=== PATIENT | female | born 1940 | race Caucasian/White ===

== ENCOUNTER 2016-09-09 07:30 | Day surgery (SDC) | payer MEDICARE, BC ==
[2016-09-05 11:35] VITALS: BMI 29.2
[~2016-09-09 07:30] MED LIST: LACTATED RINGERS 1,000 ML IV SCH
[2016-09-09] MEDS: PHENYLEPHRINE 10% OPHTH DROPS 5 ML BTL OP ONE ×3 (07:48→08:07)
[2016-09-09] MEDS: CYCLOPENTOLATE 1% OPHTH SOLN 2 ML BTL OP ONE ×3 (07:51→08:10)
[2016-09-09] MEDS: FLURBIPROFEN 0.03% OPHTH DROPS 2.5 ML BTL OP ONE ×3 (07:55→08:12)
[2016-09-09 08:03] VITALS: RESP 16; TEMP 99.1
[2016-09-09] MEDS ORDERED: LIDOCAINE 1% 20 ML VIAL (10MG/ML) FOR IV START INTRADERMA ONE (08:05)
[2016-09-09] MEDS ORDERED: PROPOFOL 10 MG/ML 20 ML VIAL IV ONE (08:12)
[2016-09-09] MEDS ORDERED: BALANCED SALT IRRIG SOLN COMB2 15 ML IRRIG.SOLN INTRAOCULA ONE (08:25)
[2016-09-09] MEDS ORDERED: HYALURONATE SODIUM INTRAOCULAR 1 EACH SYRINGE (10MG/ML) INTRAOCULA ONE (08:25)
[2016-09-09] MEDS ORDERED: EPINEPHrine (PF) 0.5 ML in BALANCED SALT IRRIG SOLN COMB2 500 ML IRRIGATION ONE (08:26)
--- NOTE | 2016-09-09 08:36 | P.OP ---
Date of Procedure: 09/09/16 Procedure(s) Performed: PREOPERATIVE DIAGNOSIS: Cataract, left eye. POSTOPERATIVE DIAGNOSIS: Cataract, left eye. OPERATION: Phacoemulsification cataract, left eye. DESCRIPTION OF PROCEDURE: The patient was taken to the preoperative holding area. Intravenous Propofol was given so as to bring about adequate sedation. The following mixture was given for local anesthesia: 5 mL of 2% lidocaine, 5 mL of 0.75% Marcaine, and 1 mL of Wydase. Approximately 4 mL was injected in the retrobulbar space of the surgical eye. Additional 1 mL was then directed to the temporal area of the surgical eye. This was performed to allow adequate neurological block of the facial muscles. The patient was revived and then taken into the operative room. The patient was prepped and draped in the usual sterile manner for the operative eye. A lid speculum was put into position. The conjunctiva was resected back from the limbus in the 12 o'clock position. Bleeding was controlled with electrocautery. A #69 blade was then used and a half-thickness scleral incision approximately 1-mm posterior to the limbus was made on bare sclera. This was shelved in the clear cornea using a crescent knife. Next a 15-degree blade was used to make a stab incision at the 3 o' clock position at the corneolimbal interface. Keratome blade was then used and the superior wound was extended into the anterior chamber. Viscoelastic was injected into the anterior chamber and to maintain its form. Next, a cystotome was used and a continuous anterior capsulotomy was made without difficulty. Hydrodissection using a blunt cannula and BSS was performed. Phaco probe was then employed and a groove extending from 12 to 6 o'clock in the lens was created. A Jose wand was used through the stab incision so as to perform a divide and conquer technique. Next an irrigation aspiration probe was utilized and any residual cortex was removed from the eye. Again, viscoelastic was injected into the anterior chamber. An Corby posterior chamber lens implant was placed in the cartridge and injected into the anterior chamber without difficulty. The [employer] hook was utilized to spin the lens into position and this was again performed without any difficulty. The irrigation and aspiration probe was again employed and any residual viscoelastic was removed from the eye. Then BSS was injected into the limbal stab incision and the anterior chamber re-inflated. The conjunctiva was reapproximated using electrocautery. One drop of 0.25% Timoptic was placed over the corneal along with TobraDex ophthalmic ointment. Two sterile patches and a Hawkins eye shield were taped into position. The patient was transported to the recovery room in stable condition. Pathology: none sent Condition: stable Disposition: same day
[2016-09-09 08:54] VITALS: BP 170/89; PULSE 70
[2016-09-09] MEDS ORDERED: TIMOLOL 0.5% OPHTH SOLN (PF) 0.2 ML DROPERETTE OP ONE (23:00)
[2016-09-09] MEDS ORDERED: GENTAMICIN/PREDNISOL AC OPHTH OINT 3.5GM OPHTHALMIC ONE (23:00)
[2016-09-09] MEDS ORDERED: BUPIVACAINE (PF) 0.75% 5 ML, LIDOCAINE 4% (PF) 5 ML, HYALURONIDASE, HUMAN RECOMB 150 UNIT MISCELLANE ONE ×3 (23:00)
== END 2016-09-09 09:36 | disposition home or self-care (01) ==
LOC: OR 07:30
PROVIDERS: ATTEND Ophthalmology
DX: H25.12 Age-related nuclear cataract, left eye (principal); I10 Essential (primary) hypertension; E78.5 Hyperlipidemia, unspecified; E07.9 Disorder of thyroid, unspecified; F41.9 Anxiety disorder, unspecified; F32.9 Major depressive disorder, single episode, unspecified; C90.02 Multiple myeloma in relapse; M79.7 Fibromyalgia; M19.90 Unspecified osteoarthritis, unspecified site; K21.9 Gastro-esophageal reflux disease without esophagitis; Z79.899 Other long term (current) drug therapy; Z88.5 Allergy status to narcotic agent; Z88.0 Allergy status to penicillin; Z88.2 Allergy status to sulfonamides
CPT/HCPCS: 66984; V2632; J2001; J3470; J0171; J2704

== ENCOUNTER → 2016-12-08 | Outpatient (CLI) | payer MEDICARE, BC ==
--- NOTE | 2016-12-09 07:43 | USB ---
Reason for exam: clinical finding. History: Patient is postmenopausal and history of other cancer. Family history of breast cancer in maternal grandmother and breast cancer in paternal grandmother at age 83. Took estrogen for 35 years beginning at age 35. Physical Findings: Nurse did not find any significant physical abnormalities on exam. US Breast LT Left breast ultrasound includes all four quadrants, the retroareolar region and axilla. Finding demonstrates no cystic or solid lesion seen. These results were verbally communicated with the patient and result sheet given to the patient on 12/08/16. ASSESSMENT: Negative, BI-RAD 1 RECOMMENDATION: Return to routine screening mammogram schedule for both breasts. Back on schedule. Manage patient on a clinical basis.
== END | disposition home or self-care (01) ==
LOC: RADUSWWP 15:32
PROVIDERS: ATTEND Family Medicine
DX: N63 Unspecified lump in breast (principal)

== ENCOUNTER → 2017-02-14 | Outpatient (CLI) | payer MEDICARE, BC ==
--- NOTE | 2017-02-15 20:44 | PE ---
Nuclear medicine PET/CT HISTORY: Multiple myeloma Patient received 10.5 mCi F-18 FDG intravenously. Delayed scanning performed through the whole body. Localization and attenuation correction CT scan was performed. Correlation to bone survey 04/03/2015 Neck and chest: No evident adenopathy. No evident lung mass. Port-A-Cath is present with the distal t ip by the jugular approach within the right atrium. There are coronary artery calcifications present. Abdomen pelvis: No suspicious hypermetabolic uptake. Right kidney is ptotic. EXTREMITIES: No suspicious hypermetabolic uptake. Osseous structures: Demineralization is again noted. There are scattered lytic foci present within th e spine and sternum, possibly calvarium, posterior calvarial lesion shows mild hypermetabolic uptake, SUV 2.3. Compression fracture is seen at L1 with some retropulsion of approximately 5 mm. There is s ome mild spinal stenosis present. Lytic foci are present within the left femur distally, and associated soft tissue mass is present wit hin the distal metaphysis of the left femur measuring approximately 2 cm. Central abnormal soft tissu e present within the contralateral femur at the same level measuring 11 mm. Lytic foci within the cara physis of the left tibia and axial image 88 measures 9 mm, there is associated endosteal scalloping o n axial image 88. SUV values approximately 2.4-3.4. Anterior cortex of the distal right tibia anterio rly shows some hypermetabolic uptake, SUV 2.2 IMPRESSION: Findings compatible with patient's history multiple myeloma. Additional findings above.
== END ==
LOC: RADPETMAIN 12:17
PROVIDERS: ATTEND Internal Medicine Hematology & Oncology
DX: C90.02 Multiple myeloma in relapse (principal)
CPT/HCPCS: 78815; A9552

== ENCOUNTER → 2017-04-22 | Outpatient (CLI) | payer MEDICARE, BC ==
--- NOTE | 2017-04-24 07:29 | MM ---
Reason for exam: screening (asymptomatic). Last mammogram was performed 1 year and 2 months ago. History: Patient is postmenopausal and history of other cancer. Family history of breast cancer in maternal grandmother and breast cancer in paternal grandmother at age 83. Took estrogen for 35 years beginning at age 35. Physical Findings: A clinical breast exam by your physician is recommended on an annual basis and results should be correlated with mammographic findings. MG 3D Screening Mammo W/Cad Bilateral CC and MLO view(s) were taken. Prior study comparison: March 03, 2016, bilateral MG 3d screening mammo w/cad. March 01, 2015, bilateral MG screening mammo w CAD. There are scattered fibroglandular densities. Chest port on the right breast. No significant changes when compared with prior studies. ASSESSMENT: Negative, BI-RAD 1 RECOMMENDATION: Routine screening mammogram of both breasts in 1 year.
== END | disposition home or self-care (01) ==
LOC: RADMAMWWP 12:35
PROVIDERS: ATTEND Family Medicine
DX: Z12.31 Encounter for screening mammogram for malignant neoplasm of breast (principal)
CPT/HCPCS: 77063; G0202

== ENCOUNTER → 2017-06-03 | Outpatient (CLI) | payer MEDICARE, BC ==
[2017-06-03 10:57] LABS: ALT 30 U/L (9-52); AST 26 U/L (14-36); Albumin 3.6 g/dL (3.5-5.0); Alkaline Phosphatase 67 U/L (38-126); Anion Gap 11 mmol/L; Blood Urea Nitrogen 15 mg/dL (7-17); Calcium 10.8 mg/dL (8.4-10.2); Carbon Dioxide 25 mmol/L (22-30); Chloride 106 mmol/L (98-107); Cholesterol 108 mg/dL (<200); Glucose 89 mg/dL (74-99); HDL Cholesterol 31 mg/dL (40-60); LDL Cholesterol,Calculated 49 mg/dL (0-99); Potassium 4.3 mmol/L (3.5-5.1); Sodium 142 mmol/L (137-145); Total Bilirubin 0.3 mg/dL (0.2-1.3); Total Protein 6.7 g/dL (6.3-8.2); Triglycerides 140 mg/dL (<150)
[2017-06-03 11:11] LABS: Anisocytosis Slight; HCT 29.3 % (34.0-46.0); HGB 9.1 gm/dL (11.4-16.0); Hypochromasia Slight; MCHC 30.9 g/dL (31.0-37.0); MCV 103.5 fL (80.0-100.0); Macrocytosis Moderate; Mean Platelet Volume 10.3; RBC 2.83 m/uL (3.80-5.40); RDW 18.9 % (11.5-15.5)
[2017-06-03 11:16] LABS: WBC 1.6 k/uL (3.8-10.6)
[2017-06-03 12:48] LABS: Platelet Count 57 k/uL (150-450)
== END | disposition home or self-care (01) ==
LOC: LABWHC1 10:04
PROVIDERS: ATTEND Internal Medicine Interventional Cardiology
DX: E78.2 Mixed hyperlipidemia (principal); I21.4 Non-ST elevation (NSTEMI) myocardial infarction
CPT/HCPCS: 36415; 80053; 80061; 85027

== ENCOUNTER 2017-06-26 09:16 | Emergency (ER) | payer MEDICARE, BC ==
[2017-06-26] MEDS ORDERED: ACETAMINOPHEN TAB 500 MG TAB PO STA (09:39)
[2017-06-26] MEDS ORDERED: IBUPROFEN 600 MG TAB PO STA (09:39)
[2017-06-26] MEDS ORDERED: SODIUM CHLORIDE 0.9% 500 ML IV SCH (09:45)
[2017-06-26 10:08] LABS: Anisocytosis Slight; Basophils % (A) 0 %; Eosinophils % (A) 0 %; HCT 21.9 % (34.0-46.0); Lymphocytes # (A) 0.4 k/uL (1.0-4.8); Lymphocytes % (A) 34 %; MCH 32.4 pg (25.0-35.0); MCV 101.2 fL (80.0-100.0); Macrocytosis Moderate; Mean Platelet Volume 7.8; Monocytes % (A) 2 %; Neutrophils # (A) 0.7 k/uL (1.3-7.7); Neutrophils % (A) 62 %; Partial Thromboplastin Time 25.2 sec (22.0-30.0); Prothrombin Time 10.2 sec (9.0-12.0); RBC 2.16 m/uL (3.80-5.40); RDW 19.9 % (11.5-15.5)
[2017-06-26 10:09] LABS: ALT 24 U/L (9-52); AST 28 U/L (14-36); Albumin 3.9 g/dL (3.5-5.0); Alkaline Phosphatase 71 U/L (38-126); Anion Gap 10 mmol/L; Blood Urea Nitrogen 15 mg/dL (7-17); Carbon Dioxide 21 mmol/L (22-30); Chloride 107 mmol/L (98-107); Glucose 101 mg/dL (74-99); Potassium 4.4 mmol/L (3.5-5.1); Sodium 138 mmol/L (137-145); Total Bilirubin 0.2 mg/dL (0.2-1.3); Total Protein 7.3 g/dL (6.3-8.2)
[2017-06-26 10:11] LABS: Platelet Count 102 k/uL (150-450)
[2017-06-26 10:13] LABS: WBC 1.2 k/uL (3.8-10.6)
[2017-06-26] MEDS ORDERED: ONDANSETRON 4 MG/2 ML VIAL IVP STA (10:17)
--- NOTE | 2017-06-26 10:44 | XR ---
EXAMINATION TYPE: XR chest 2V DATE OF EXAM: 06/26/2017 COMPARISON: 11/14/2015 INDICATION: Fever heart attack cough TECHNIQUE: Frontal and lateral views of the chest are obtained. FINDINGS: The heart size is normal. The pulmonary vasculature is normal. The lungs are clear. Port is present on the right with the tip in the proximal right atrium. EKG warren ds overlie the chest. IMPRESSION: 1. No acute pulmonary process.
--- NOTE | 2017-06-26 10:58 | ED ---
General Adult HPI - General Chief complaint: Fever Stated complaint: Fever, Chills, [place] Time Seen by Provider: 06/26/17 09:20 Source: patient, family, RN notes reviewed Mode of arrival: ambulatory Limitations: no limitations - History of Present Illness Initial comments: This is a 76-year-old female with past medical history significant for multiple myeloma. Patient states she was here today to get a blood transfusion because her hemoglobin has been low. Patient states when she got there they took her temperature was elevated. They sent to the emergency department to be worked up for the elevated doctor. Patient complains of coughing but no difficulty breathing or shortness of breath. Patient denies any sputum production. Patient denies any chest pain or palpitations. Patient denies any nausea vomiting diarrhea. Patient denies abdominal pain. Patient denies any dysuria hematuria urinary frequency. Patient denies headache patient denies lightheadedness patient denies any numbness or weakness. Patient denies any rashes or areas of erythema - Related Data Home Medications Medication Instructions Recorded Confirmed ALPRAZolam [Xanax] 1 mg PO TID@0800,1400,1900 01/04/14 06/26/17 Acetaminophen Tab [Tylenol] 1,000 mg PO TID@0800,1400,199901/04/14 06/26/17 Lansoprazole [Prevacid] 30 mg PO DAILY@0801/04/14 06/26/17 Levothyroxine Sodium [Levoxyl] 25 mcg PO DAILY@0800 01/04/14 06/26/17 Simvastatin [Zocor] 40 mg PO DAILY@189901/04/14 06/26/17 Multivit-Min/FA/Lycopen/Lutein 1 tab PO DAILY 04/05/15 06/26/17 [Centrum Silver Tablet] Decaf Green Tea 750 mg PO BID 11/14/15 06/26/17 Lactobacillus Acidophilus 2 tab PO BID 11/14/15 06/26/17 [Acidophilus] Lidocaine-Prilocaine Cream [Emla 1 applic TOPICAL DAILY PRN 11/14/15 06/26/17 Cream 2.5%/2.5%] Reagan-E 400 mg PO QAM 11/14/15 06/26/17 Acyclovir [Zovirax] 200 mg PO BID@0800,1900 09/05/16 06/26/17 Aspirin 81 mg PO DAILY@1900 09/05/16 06/26/17 Mirtazapine [Remeron] 7.5 mg PO HS@2200 09/05/16 06/26/17 Acetaminophen Tab [Tylenol Tab] 1,000 mg PO DAILY@0000 PRN 06/26/17 06/26/17 Ascorbic Acid [Vitamin C] 500 mg PO DAILY 06/26/17 06/26/17 Clobetasol Propionate [Temovate 1 applic TOPICAL BID 06/26/17 06/26/17 0.05% Cream] Cranberry 22,000mg 22,000 mg PO BID 06/26/17 06/26/17 Hydrocortisone [Anusol-Hc] 1 applic RECTAL DAILY 06/26/17 06/26/17 Isosorbide Mononitrate [Isosorbide 15 mg PO DAILY@0800 06/26/17 06/26/17 Mononitrate ER] Liquid Silver Biotics 10 ml PO QAM 06/26/17 06/26/17 Lisinopril [Zestril] 5 mg PO DAILY@0800 06/26/17 06/26/17 Metoprolol Tartrate [Lopressor] 50 mg PO BID@0800,1900 06/26/17 06/26/17 Nystatin/Triamcin Cream [Mycolog 1 applic TOPICAL DAILY 06/26/17 06/26/17 100,000-0.1 Unit/gm-% Cream] Previous Rx's Medication Instructions Recorded Levofloxacin [Levaquin] 750 mg PO DAILY #10 tab 06/26/17 Allergies Allergy/AdvReac Type Severity Reaction Status Date / Time codeine Allergy Rapid Verified 06/26/17 09:55 Heart Rate Penicillins Allergy Rash/Hives Verified 06/26/17 09:55 Sulfa (Sulfonamide Allergy Dyspnea Verified 06/26/17 09:55 Antibiotics) Review of Systems ROS Statement: Those systems with pertinent positive or pertinent negative responses have been documented in the HPI. ROS Other: All systems not noted in ROS Statement are negative. Past Medical History Past Medical History: Cancer, Fibromyalgia, GERD/Reflux, Myocardial Infarction ( CT), Osteoarthritis (OA), Pneumonia, Thyroid Disorder Additional Past Medical History / Comment(s): MULTIPLE MYLEMOMA STAGE 3, COMPRESSION FRACTURES. CT - April Last Myocardial Infarction Date:: 05-24-2018 History of Any Multi-Drug Resistant Organisms: None Reported Past Surgical History: Bowel Resection, Heart Catheterization, Hysterectomy Additional Past Surgical History / Comment(s): cystocele,rectocele, rt upper chest power port Past Anesthesia/Blood Transfusion Reactions: Postoperative Nausea & Vomiting ( PONV) Additional Past Anesthesia/Blood Transfusion Reaction / Comment(s): pt states PONV only with general anesthesia. Pt. states she had CT on 05-24-18 while getting blood transfusion; pt. states she also had just started a new chemo medication which has since been discontinued Past Psychological History: Anxiety, Depression Smoking Status: Never smoker Past Alcohol Use History: None Reported Past Drug Use History: None Reported - Past Family History Father Family Medical History: Cancer Additional Family Medical History / Comment(s): KIDNEY CANCER Mother Family Medical History: Myocardial Infarction (CT) General Exam - General Exam Comments Initial Comments: GENERAL: Patient is well-developed and well-nourished. Patient is nontoxic and well- hydrated and is in mild distress. ENT: Neck is soft and supple. No significant lymphadenopathy is noted. Oropharynx is clear. Moist mucous membranes. Neck has full range of motion without eliciting any pain. EYES: The sclera were anicteric and conjunctiva were pink and moist. Extraocular movements were intact and pupils were equal round and reactive to light. Eyelids were unremarkable. PULMONARY: Unlabored respirations. Good breath sounds bilaterally. No audible rales rhonchi or wheezing was noted. CARDIOVASCULAR: There is a regular rate and rhythm without any murmurs gallops or rubs. ABDOMEN: Soft and nontender with normal bowel sounds. No palpable organomegaly was noted. There is no palpable pulsatile mass. SKIN: Skin is clear with no lesions or rashes and otherwise unremarkable. NEUROLOGIC: Patient is alert and oriented x3. Cranial nerves II through XII are grossly intact. Motor and sensory are also intact. Normal speech, volume and content. Symmetrical smile. MUSCULOSKELETAL: Normal extremities with adequate strength and full range of motion. LYMPHATICS: No significant lymphadenopathy is noted PSYCHIATRIC: Normal psychiatric evaluation. Normal interpersonal interactions appears functionally intact in deals appropriately with others. Limitations: no limitations Course Vital Signs 06/26/17 06/26/17 09:20 10:54 Temperature 101.9 F H 100.6 F H Pulse Rate 92 Respiratory 22 Rate Blood Pressure 157/75 O2 Sat by Pulse 96 Oximetry Medical Decision Making - Medical Decision Making EKG shows normal sinus rhythm at 91 bpm VT interval is 154 QRS is 92 QT interval 372 QTC is 457. Patient's EKG shows no ST segment elevation or depression or T wave abnormalities are noted. Chest x-ray showed no acute abnormality I spoke with Dr. Saucedo and went over the results of all the testing. Dr. Saucedo wants the patient to get some oral Levaquin and then go back upstairs to get her blood transfusion. Patient received Levaquin here in the emergency department. - Lab Data Result diagrams: 06/26/17 09:47 06/26/17 09:47 Lab Results 06/26/17 06/26/17 06/26/17 Range/Units 09:47 09:47 09:47 WBC 1.2 L* (3.8-10.6) k/uL RBC 2.16 L (3.80-5.40) m/uL Hgb 7.0 L* D (11.4-16.0) gm/dL Hct 21.9 L (34.0-46.0) % MCV 101.2 H (80.0-100.0) fL MCH 32.4 (25.0-35.0) pg MCHC 32.0 (31.0-37.0) g/dL RDW 19.9 H (11.5-15.5) % Plt Count 102 L D (150-450) k/uL Neutrophils % 62 % Lymphocytes % 34 % Monocytes % 2 % Eosinophils % 0 % Basophils % 0 % Neutrophils # 0.7 L (1.3-7.7) k/uL Lymphocytes # 0.4 L (1.0-4.8) k/uL Monocytes # 0.0 (0-1.0) k/uL Eosinophils # 0.0 (0-0.7) k/uL Basophils # 0.0 (0-0.2) k/uL Anisocytosis Slight Macrocytosis Moderate PT (9.0-12.0) sec INR (<1.2) APTT (22.0-30.0) sec Sodium 138 (137-145) mmol/L Potassium 4.4 (3.5-5.1) mmol/L Chloride 107 (98-107) mmol/L Carbon Dioxide 21 L (22-30) mmol/L Anion Gap 10 mmol/L BUN 15 (7-17) mg/dL Creatinine 0.67 (0.52-1.04) mg/dL Est GFR (MDRD) Af Amer >60 (>60 ml/min/1.73 sqM) Est GFR (MDRD) Non-Af >60 (>60 ml/min/1.73 sqM) Glucose 101 H (74-99) mg/dL Plasma Lactic Acid Sg 0.7 (0.7-2.0) mmol/L Calcium 11.0 H (8.4-10.2) mg/dL Total Bilirubin 0.2 (0.2-1.3) mg/dL AST 28 (14-36) U/L ALT 24 (9-52) U/L Alkaline Phosphatase 71 (38-126) U/L Total Protein 7.3 (6.3-8.2) g/dL Albumin 3.9 (3.5-5.0) g/dL Urine Color Urine Appearance (Clear) Urine pH (5.0-8.0) Ur Specific [place] (1.001-1.035) Urine Protein (Negative) Urine Glucose (UA) (Negative) Urine Ketones (Negative) Urine Blood (Negative) Urine Nitrite (Negative) Urine Bilirubin (Negative) Urine Urobilinogen (<2.0) mg/dL Ur Leukocyte Esterase (Negative) Urine WBC (0-5) /hpf Urine Mucus (None) /hpf Influenza Type A RNA (Not Detectd) Influenza Type B (PCR) (Not Detectd) 06/26/17 06/26/17 06/26/17 Range/Units 09:47 09:47 11:51 WBC (3.8-10.6) k/uL RBC (3.80-5.40) m/uL Hgb (11.4-16.0) gm/dL Hct (34.0-46.0) % MCV (80.0-100.0) fL MCH (25.0-35.0) pg MCHC (31.0-37.0) g/dL RDW (11.5-15.5) % Plt Count (150-450) k/uL Neutrophils % % Lymphocytes % % Monocytes % % Eosinophils % % Basophils % % Neutrophils # (1.3-7.7) k/uL Lymphocytes # (1.0-4.8) k/uL Monocytes # (0-1.0) k/uL Eosinophils # (0-0.7) k/uL Basophils # (0-0.2) k/uL Anisocytosis Macrocytosis PT 10.2 (9.0-12.0) sec INR 1.0 (<1.2) APTT 25.2 (22.0-30.0) sec Sodium (137-145) mmol/L Potassium (3.5-5.1) mmol/L Chloride (98-107) mmol/L Carbon Dioxide (22-30) mmol/L Anion Gap mmol/L BUN (7-17) mg/dL Creatinine (0.52-1.04) mg/dL Est GFR (MDRD) Af Amer (>60 ml/min/1.73 sqM) Est GFR (MDRD) Non-Af (>60 ml/min/1.73 sqM) Glucose (74-99) mg/dL Plasma Lactic Acid Sg (0.7-2.0) mmol/L Calcium (8.4-10.2) mg/dL Total Bilirubin (0.2-1.3) mg/dL AST (14-36) U/L ALT (9-52) U/L Alkaline Phosphatase (38-126) U/L Total Protein (6.3-8.2) g/dL Albumin (3.5-5.0) g/dL Urine Color Light Yellow Urine Appearance Clear (Clear) Urine pH 6.5 (5.0-8.0) Ur Specific [place] 1.016 (1.001-1.035) Urine Protein 1+ H (Negative) Urine Glucose (UA) Negative (Negative) Urine Ketones Negative (Negative) Urine Blood Negative (Negative) Urine Nitrite Negative (Negative) Urine Bilirubin Negative (Negative) Urine Urobilinogen <2.0 (<2.0) mg/dL Ur Leukocyte Esterase Negative (Negative) Urine WBC 1 (0-5) /hpf Urine Mucus Rare H (None) /hpf Influenza Type A RNA Not Detected (Not Detectd) Influenza Type B (PCR) Not Detected (Not Detectd) Disposition Clinical Impression: Bronchitis, Anemia Disposition: HOME SELF-CARE Instructions: Acute Bronchitis (ED) Additional Instructions: Patient is to immediately go upstairs to get her blood transfusion. Patient is to take Levaquin as prescribed. Prescriptions: Levofloxacin [Levaquin] 750 mg PO DAILY #10 tab Referrals: Sami Cardenas MD [Primary Care Provider] - 1-2 days Time of Disposition: 12:46
[2017-06-26 12:24] LABS: Appearance,Urine Clear (Clear); Bilirubin,Urine Negative (Negative); Blood,Urine Negative (Negative); Color,Urine Light Yellow; Glucose,Urine (UA) Negative (Negative); Ketones,Urine Negative (Negative); Leukocyte Esterase,Urine Negative (Negative); Mucus,Urine Rare /hpf; Nitrite,Urine Negative (Negative); PH, Urine 6.5 (5.0-8.0); Protein,Urine 1+ (Negative); Specific Gravity,Urine 1.016 (1.001-1.035); Urobilinogen,Urine <2.0 mg/dL (<2.0); WBC,Urine 1 /hpf (0-5)
[2017-06-26] MEDS ORDERED: LEVOFLOXACIN 750 MG TAB PO STA (12:40)
[2017-06-26 13:10] VITALS: BP 115/43; PULSE 89; RESP 18; TEMP 100.3
== END 2017-06-26 13:10 | disposition home or self-care (01) ==
LOC: EC 09:16
DX: J40 Bronchitis, not specified as acute or chronic (principal); D64.9 Anemia, unspecified; M19.90 Unspecified osteoarthritis, unspecified site; I25.2 Old myocardial infarction; E07.9 Disorder of thyroid, unspecified; K21.9 Gastro-esophageal reflux disease without esophagitis; F41.9 Anxiety disorder, unspecified; F32.9 Major depressive disorder, single episode, unspecified; Z87.01 Personal history of pneumonia (recurrent); Z85.79 Personal history of other malignant neoplasms of lymphoid, hematopoietic and related tissues; Z88.5 Allergy status to narcotic agent; Z88.0 Allergy status to penicillin; Z88.2 Allergy status to sulfonamides; Z79.82 Long term (current) use of aspirin; Z79.899 Other long term (current) drug therapy
CPT/HCPCS: 36415; 80053; 83605; 85025; 85610; 85730; 81001; 87040; 87086; 87077; 87186; 87502; 71046; 99284; 96374; 96361 ×3; J2405; 93005

== ENCOUNTER 2017-07-21 14:19 | Inpatient (IN) | payer MEDICARE, BC ==
[2017-07-21] MEDS ORDERED: SODIUM CHLORIDE 0.9% 1,000 ML IV STA (14:28)
--- NOTE | 2017-07-21 15:29 | ED ---
General Adult HPI - General Chief complaint: Recheck/Abnormal Lab/Rx Stated complaint: Abnormal Labs Time Seen by Provider: 07/21/17 14:24 Source: patient, RN notes reviewed, old records reviewed Mode of arrival: EMS Limitations: no limitations - History of Present Illness Initial comments: This is a 76-year-old female to the ER for evaluation. Today she presents for evaluation regarding abnormal outpatient lab test. Patient does admit to feeling weak and tired lately. Short of breath. Her lab results patient had low hemoglobin, hypertension. Patient denies blood in her stool. Patient does have multiple myeloma, not currently going through treatment, she is in rehabilitation for strengthening rehabilitation secondary to recent hospital admission. No fevers. No chest pain or shortness of breath. - Related Data Home Medications Medication Instructions Recorded Confirmed Acetaminophen Tab [Tylenol] 1,000 mg PO TID@0600,1200,1800 01/04/14 07/21/17 Levothyroxine Sodium [Levoxyl] 25 mcg PO DAILY@0800 01/04/14 07/21/17 Lactobacillus Acidophilus 2 tab PO BID 11/14/15 07/21/17 [Acidophilus] Lidocaine-Prilocaine Cream [Emla 1 applic TOPICAL DAILY PRN 11/14/15 07/21/17 Cream 2.5%/2.5%] Reagan-E 400 mg PO QAM 11/14/15 07/21/17 Aspirin 81 mg PO DAILY@1900 09/05/16 07/21/17 Mirtazapine [Remeron] 7.5 mg PO HS@2200 09/05/16 07/21/17 Acetaminophen Tab [Tylenol] 1,000 mg PO DAILY@0000 PRN 06/26/17 07/21/17 Ascorbic Acid [Vitamin C] 500 mg PO DAILY 06/26/17 07/21/17 Hydrocortisone [Anusol-Hc] 1 applic RECTAL HS PRN 06/26/17 07/21/17 Isosorbide Mononitrate [Isosorbide 15 mg PO DAILY@0800 06/26/17 07/21/17 Mononitrate ER] Lisinopril [Zestril] 5 mg PO DAILY@0800 06/26/17 07/21/17 Acyclovir [Zovirax] 200 mg PO BID 07/21/17 07/21/17 Atorvastatin [Lipitor] 20 mg PO HS 07/21/17 07/21/17 Furosemide [Lasix] 20 mg PO DAILY 07/21/17 07/21/17 Multivits,Th W-Ca,Fe,Oth Min 1 tab PO DAILY@1400 07/21/17 07/21/17 [Therapeutic M] Omeprazole 20 mg PO DAILY 07/21/17 07/21/17 Previous Rx's Medication Instructions Recorded Docusate [Colace] 100 mg PO DAILY cap 07/10/17 Ipratropium-Albuterol Nebulize 3 ml INHALATION RT-Q4H PRN 07/10/17 [Duoneb 0.5 mg-3 mg/3 ml Soln] ampul.neb Metoprolol Tartrate [Lopressor] 50 mg PO BID tab 07/10/17 ALPRAZolam [Xanax] 1 mg PO Q8H #90 tab 07/24/17 Nystatin 100,000 Unit/gm Powd 1 applic TOPICAL BID applic 07/24/17 [Mycostatin Powder] traMADol HCl [Ultram] 50 mg PO Q6H PRN #120 tab 07/24/17 Allergies Allergy/AdvReac Type Severity Reaction Status Date / Time codeine Allergy Rapid Verified 07/21/17 14:35 Heart Rate Penicillins Allergy Rash/Hives Verified 07/21/17 14:35 Sulfa (Sulfonamide Allergy Dyspnea Verified 07/21/17 14:35 Antibiotics) Review of Systems ROS Statement: Those systems with pertinent positive or pertinent negative responses have been documented in the HPI. ROS Other: All systems not noted in ROS Statement are negative. Past Medical History Past Medical History: Cancer, Fibromyalgia, GERD/Reflux, Myocardial Infarction ( [place]), Osteoarthritis (OA), Pneumonia, Thyroid Disorder Additional Past Medical History / Comment(s): MULTIPLE MYLEMOMA STAGE 3, COMPRESSION FRACTURES. [place] - April Last Myocardial Infarction Date:: 05-24-2017 History of Any Multi-Drug Resistant Organisms: None Reported Past Surgical History: Bowel Resection, Heart Catheterization, Hysterectomy Additional Past Surgical History / Comment(s): cystocele,rectocele, rt upper chest power port Past Anesthesia/Blood Transfusion Reactions: Postoperative Nausea & Vomiting ( PONV) Additional Past Anesthesia/Blood Transfusion Reaction / Comment(s): pt states PONV only with general anesthesia. Pt. states she had [place] on 05-24-18 while getting blood transfusion; pt. states she also had just started a new chemo medication which has since been discontinued Past Psychological History: No Psychological Hx Reported Smoking Status: Never smoker Past Alcohol Use History: None Reported Past Drug Use History: None Reported - Past Family History Father Family Medical History: Cancer Additional Family Medical History / Comment(s): KIDNEY CANCER Mother Family Medical History: Myocardial Infarction ([place]) General Exam Limitations: no limitations General appearance: alert, in no apparent distress Head exam: Present: atraumatic, normocephalic, normal inspection Eye exam: Present: normal appearance, PERRL, EOMI. Absent: scleral icterus, conjunctival injection, periorbital swelling ENT exam: Present: normal exam, mucous membranes moist Neck exam: Present: normal inspection. Absent: tenderness, meningismus, lymphadenopathy Respiratory exam: Present: normal lung sounds bilaterally. Absent: respiratory distress, wheezes, rales, rhonchi, stridor Cardiovascular Exam: Present: regular rate, normal rhythm, normal heart sounds. Absent: systolic murmur, diastolic murmur, rubs, gallop, clicks GI/Abdominal exam: Present: soft, normal bowel sounds. Absent: distended, tenderness, guarding, rebound, rigid Extremities exam: Present: normal inspection, full ROM, normal capillary refill. Absent: tenderness, pedal edema, joint swelling, calf tenderness Back exam: Present: normal inspection Neurological exam: Present: alert, oriented X3, CN II-XII intact Psychiatric exam: Present: normal affect, normal mood Skin exam: Present: warm, dry, intact, normal color. Absent: rash Course Vital Signs 07/21/17 07/21/17 07/21/17 14:34 17:59 18:14 Temperature 98.3 F 97.1 F L 97.9 F Pulse Rate 85 82 84 Respiratory 14 16 18 Rate Blood Pressure 148/65 107/54 117/53 O2 Sat by Pulse 98 96 Oximetry 07/21/17 07/21/17 18:29 18:45 Temperature 98.1 F 98.3 F Pulse Rate 96 Respiratory 18 17 Rate Blood Pressure 169/77 152/67 O2 Sat by Pulse 97 Oximetry Medical Decision Making - Medical Decision Making 76 female the ER for evaluation of abnormal lab tests, disease related. Patient will be admitted for oncologic evaluation - Lab Data Result diagrams: 07/23/17 06:51 07/22/17 08:33 Lab Results 07/21/17 07/21/17 07/21/17 Range/Units 16:00 16:00 16:00 WBC 1.2 L* (3.8-10.6) k/uL RBC 1.61 L (3.80-5.40) m/uL Hgb 5.1 L* D (11.4-16.0) gm/dL Hct 16.3 L* (34.0-46.0) % MCV 101.2 H (80.0-100.0) fL MCH 31.7 (25.0-35.0) pg MCHC 31.3 (31.0-37.0) g/dL RDW 19.3 H (11.5-15.5) % Plt Count 63 L D (150-450) k/uL Neutrophils % 34 % Lymphocytes % 60 % Monocytes % 1 % Eosinophils % 2 % Basophils % 0 % Neutrophils # 0.4 L (1.3-7.7) k/uL Lymphocytes # 0.7 L (1.0-4.8) k/uL Monocytes # 0.0 (0-1.0) k/uL Eosinophils # 0.0 (0-0.7) k/uL Basophils # 0.0 (0-0.2) k/uL Polychromasia Present Anisocytosis Slight Macrocytosis Moderate PT (9.0-12.0) sec INR (<1.2) APTT (22.0-30.0) sec Sodium 144 (137-145) mmol/L Potassium 6.1 H (3.5-5.1) mmol/L Chloride 115 H (98-107) mmol/L Carbon Dioxide 14 L (22-30) mmol/L Anion Gap 15 mmol/L BUN 36 H (7-17) mg/dL Creatinine 2.90 H (0.52-1.04) mg/dL Est GFR (MDRD) Af Amer 19 (>60 ml/min/1.73 sqM) Est GFR (MDRD) Non-Af 16 (>60 ml/min/1.73 sqM) Glucose 106 H (74-99) mg/dL Calcium 8.7 (8.4-10.2) mg/dL Magnesium 1.5 L (1.6-2.3) mg/dL Total Bilirubin 0.1 L (0.2-1.3) mg/dL AST 29 (14-36) U/L ALT 27 (9-52) U/L Alkaline Phosphatase 89 (38-126) U/L Total Creatine Kinase 27 L (30-135) U/L CK-MB (CK-2) 3.3 H* (0.0-2.4) ng/mL CK-MB (CK-2) Rel Index 12.2 Troponin I <0.012 (0.000-0.034) ng/mL Total Protein 6.1 L (6.3-8.2) g/dL Albumin 2.9 L (3.5-5.0) g/dL Lipase 288 (23-300) U/L Blood Type Blood Type Recheck Antibody Screen Crossmatch Spec Expiration Date 07/21/17 07/21/17 Range/Units 16:00 16:00 WBC (3.8-10.6) k/uL RBC (3.80-5.40) m/uL Hgb (11.4-16.0) gm/dL Hct (34.0-46.0) % MCV (80.0-100.0) fL MCH (25.0-35.0) pg MCHC (31.0-37.0) g/dL RDW (11.5-15.5) % Plt Count (150-450) k/uL Neutrophils % % Lymphocytes % % Monocytes % % Eosinophils % % Basophils % % Neutrophils # (1.3-7.7) k/uL Lymphocytes # (1.0-4.8) k/uL Monocytes # (0-1.0) k/uL Eosinophils # (0-0.7) k/uL Basophils # (0-0.2) k/uL Polychromasia Anisocytosis Macrocytosis PT 16.6 H (9.0-12.0) sec INR 1.8 H (<1.2) APTT >200.0 H* (22.0-30.0) sec Sodium (137-145) mmol/L Potassium (3.5-5.1) mmol/L Chloride (98-107) mmol/L Carbon Dioxide (22-30) mmol/L Anion Gap mmol/L BUN (7-17) mg/dL Creatinine (0.52-1.04) mg/dL Est GFR (MDRD) Af Amer (>60 ml/min/1.73 sqM) Est GFR (MDRD) Non-Af (>60 ml/min/1.73 sqM) Glucose (74-99) mg/dL Calcium (8.4-10.2) mg/dL Magnesium (1.6-2.3) mg/dL Total Bilirubin (0.2-1.3) mg/dL AST (14-36) U/L ALT (9-52) U/L Alkaline Phosphatase (38-126) U/L Total Creatine Kinase (30-135) U/L CK-MB (CK-2) (0.0-2.4) ng/mL CK-MB (CK-2) Rel Index Troponin I (0.000-0.034) ng/mL Total Protein (6.3-8.2) g/dL Albumin (3.5-5.0) g/dL Lipase (23-300) U/L Blood Type O Positive Blood Type Recheck No Antibody Screen NEGATIVE Crossmatch See Detail Spec Expiration Date 07/24/2017 230 Disposition Clinical Impression: Anemia, Weakness, Multiple myeloma Disposition: ADMITTED IP TO THIS [facility] Condition: Fair
[2017-07-21 16:17] LABS: Anisocytosis Slight; Basophils % (A) 0 %; Eosinophils % (A) 2 %; Lymphocytes # (A) 0.7 k/uL (1.0-4.8); Lymphocytes % (A) 60 %; MCH 31.7 pg (25.0-35.0); MCHC 31.3 g/dL (31.0-37.0); MCV 101.2 fL (80.0-100.0); Macrocytosis Moderate; Mean Platelet Volume 8.9; Monocytes % (A) 1 %; Neutrophils # (A) 0.4 k/uL (1.3-7.7); Neutrophils % (A) 34 %; Platelet Count 63 k/uL (150-450); RBC 1.61 m/uL (3.80-5.40); RDW 19.3 % (11.5-15.5)
[2017-07-21 16:19] LABS: HCT 16.3 % (34.0-46.0); HGB 5.1 gm/dL (11.4-16.0); WBC 1.2 k/uL (3.8-10.6)
[2017-07-21 16:22] LABS: INR 1.8 (<1.2); Prothrombin Time 16.6 sec (9.0-12.0)
[2017-07-21 16:34] LABS: Albumin 2.9 g/dL (3.5-5.0); Calcium 8.7 mg/dL (8.4-10.2); Creatine Kinase 27 U/L (30-135); Magnesium 1.5 mg/dL (1.6-2.3); Potassium 6.1 mmol/L (3.5-5.1); Total Bilirubin 0.1 mg/dL (0.2-1.3); Total Protein 6.1 g/dL (6.3-8.2)
[2017-07-21 16:42] LABS: Partial Thromboplastin Time >200.0 sec (22.0-30.0)
[2017-07-21 16:47] LABS: Troponin I <0.012 ng/mL (0.000-0.034)
[2017-07-21 16:48] LABS: Creatine Kinase MB 3.3 ng/mL (0.0-2.4)
[2017-07-21 16:52] LABS: Polychromasia Present
[2017-07-21] MEDS ORDERED: HYDROCORTISONE 2.5% RECTAL CREAM 30 GM TUBE RECTAL PRN (21:43)
[2017-07-21] MEDS ORDERED: LIDOCAINE-PRILOCAINE 2.5-2.5% CREAM 5 GM TUBE TOPICAL PRN (21:43)
[2017-07-21] MEDS ORDERED: IPRATROPIUM-ALBUTEROL 3 ML NEB INHALATION PRN (21:43)
[2017-07-21] MEDS ORDERED: traMADol 50 MG TAB PO PRN (21:43)
[2017-07-21] MEDS ORDERED: FUROSEMIDE 10 MG/ML 2 ML VIAL IV STA (21:45)
[2017-07-21] MEDS: ALPRAZolam 1 MG TAB PO SCH (23:03)
[2017-07-21] MEDS: MIRTAZAPINE 15 MG TAB PO SCH (23:03)
[2017-07-21] MEDS: METOPROLOL TARTRATE 50 MG TAB PO SCH (23:04)
[2017-07-21] MEDS: SODIUM CHLORIDE 0.45% 1,000 ML IV SCH (23:08)
[2017-07-22] MEDS ORDERED: ACETAMINOPHEN TAB 500 MG TAB PO PRN
[2017-07-22] MEDS: ALPRAZolam 1 MG TAB PO SCH ×3 (06:05→22:01)
[2017-07-22] MEDS: ACETAMINOPHEN TAB 500 MG TAB PO SCH ×3 (07:04→17:34)
[2017-07-22] MEDS: METOPROLOL TARTRATE 50 MG TAB PO SCH ×2 (07:26→22:00)
[2017-07-22] MEDS: LEVOTHYROXINE 25 MCG TAB PO SCH (07:27)
[2017-07-22] MEDS: PANTOPRAZOLE 40 MG TABLET PO SCH (07:27)
[2017-07-22] MEDS: ISOSORBIDE MONONITRATE ER 30 MG TAB.ER.24H PO SCH (07:27)
[2017-07-22] MEDS: LISINOPRIL 5 MG TAB PO SCH (07:28)
[2017-07-22] MEDS: ASCORBIC ACID 500 MG TAB PO SCH (07:28)
[2017-07-22] MEDS: DOCUSATE 100 MG CAP PO SCH (07:29)
[2017-07-22] MEDS: NYSTATIN 100,000 UNIT/GM POWD 15 GM TOPICAL SCH ×2 (07:29→22:02)
[2017-07-22] MEDS: LACTOBACILLUS ACIDOPH & BULGAR 1 EACH PACKET PO SCH ×2 (07:29→22:02)
[2017-07-22] MEDS: FUROSEMIDE 20 MG TAB PO SCH (07:29)
[2017-07-22 09:06] LABS: Calcium 7.5 mg/dL (8.4-10.2); Potassium 5.2 mmol/L (3.5-5.1)
[2017-07-22 09:27] LABS: Partial Thromboplastin Time 25.4 sec (22.0-30.0)
[2017-07-22 09:40] LABS: Anisocytosis Slight; HCT 27.2 % (34.0-46.0); Hypochromasia Slight; MCH 31.5 pg (25.0-35.0); MCHC 33.7 g/dL (31.0-37.0); Macrocytosis Slight; Platelet Count 61 k/uL (150-450); Poikilocytosis Slight; RBC 2.91 m/uL (3.80-5.40); RDW 18.7 % (11.5-15.5)
[2017-07-22 09:48] LABS: HGB 9.2 gm/dL (11.4-16.0)
[2017-07-22 09:49] LABS: MCV 93.4 fL (80.0-100.0)
[2017-07-22 10:39] LABS: Eosinophils # (M) 0.04 k/uL (0-0.7); Lymphocytes # (M) 1.16 k/uL (1.0-4.8); Neutrophils % (M) 40 %; Nucleated Red Blood Cells 0 /100 WBC (0-0); Total Cells Counted 100
[2017-07-22 10:41] LABS: Spherocytes Present
[2017-07-22 12:43] VITALS: BMI 29.9
[2017-07-22] MEDS: MULTIVITAMINS, THERA 1 EACH TAB PO SCH (14:18)
[2017-07-22] MEDS ORDERED: traMADol 50 MG TAB PO PRN (14:54)
--- NOTE | 2017-07-22 16:46 | P.HPIM ---
History of Present Illness H&P Date: 07/22/17 Chief Complaint: Significant anemia. This is a history and physical on a 76-year-old white female with no history of multiple myeloma who was recently discharged less than a month ago for pneumonia with significant complications of altered mental status and significant weakness. She was transferred to the [facility] and was home from that rehab facility. The patient states that she became suddenly weak. And she was unable to do her normal activities of daily living. Workup in the emergency room did show significant anemia. She has now been transferred 2 units of PRBC. I suspect she is struggles with mild dysplasia related to treatment and the natural progression of her multiple myeloma. Review of Systems Constitutional: Reports lethargy, Reports weakness, Denies chills, Denies fever Eyes: denies blurred vision, denies pain Ears, nose, mouth and throat: Denies headache, Denies sore throat Cardiovascular: Denies chest pain, Denies shortness of breath Respiratory: Denies cough Gastrointestinal: Denies abdominal pain, Denies diarrhea, Denies nausea, Denies vomiting Genitourinary: Denies dysuria, Denies hematuria Musculoskeletal: Denies myalgias Past Medical History Past Medical History: Cancer, Fibromyalgia, GERD/Reflux, Myocardial Infarction ( [place]), Osteoarthritis (OA), Pneumonia, Thyroid Disorder Additional Past Medical History / Comment(s): MULTIPLE MYLEMOMA STAGE 3, chemo induced anemiaCOMPRESSION FRACTURES , sbo 2014(sx). [place] - April Last Myocardial Infarction Date:: 05-24-2017 History of Any Multi-Drug Resistant Organisms: None Reported Past Surgical History: Bowel Resection, Heart Catheterization, Hysterectomy Additional Past Surgical History / Comment(s): cystocele,rectocele, rt upper chest power port, cataract sx gaurav, 2015 exploratory laparotomy/lysis of adhesions Past Anesthesia/Blood Transfusion Reactions: Postoperative Nausea & Vomiting ( PONV) Additional Past Anesthesia/Blood Transfusion Reaction / Comment(s): pt states PONV only with general anesthesia, hx multiple blood transfusions. Pt. states she had [place] on 05-24-17 while getting blood transfusion; pt. states she also had just started a new chemo medication which has since been discontinued Smoking Status: Never smoker - Past Family History Father Family Medical History: Cancer Additional Family Medical History / Comment(s): KIDNEY CANCER Mother Family Medical History: Myocardial Infarction ([place]) Medications and Allergies Home Medications Medication Instructions Recorded Confirmed Type Acetaminophen Tab [Tylenol] 1,000 mg PO TID@0600,1200,1800 01/04/14 07/21/17 History Levothyroxine Sodium [Levoxyl] 25 mcg PO DAILY@0800 01/04/14 07/21/17 History Lactobacillus Acidophilus 2 tab PO BID 11/14/15 07/21/17 History [Acidophilus] Lidocaine-Prilocaine Cream [Emla 1 applic TOPICAL DAILY PRN 11/14/15 07/21/17 History Cream 2.5%/2.5%] Reagan-E 400 mg PO QAM 11/14/15 07/21/17 History Aspirin 81 mg PO DAILY@1900 09/05/16 07/21/17 History Mirtazapine [Remeron] 7.5 mg PO HS@2200 09/05/16 07/21/17 History Acetaminophen Tab [Tylenol] 1,000 mg PO DAILY@0000 PRN 06/26/17 07/21/17 History Ascorbic Acid [Vitamin C] 500 mg PO DAILY 06/26/17 07/21/17 History Hydrocortisone [Anusol-Hc] 1 applic RECTAL HS PRN 06/26/17 07/21/17 History Isosorbide Mononitrate [Isosorbide 15 mg PO DAILY@0800 06/26/17 07/21/17 History Mononitrate ER] Lisinopril [Zestril] 5 mg PO DAILY@0800 06/26/17 07/21/17 History Docusate [Colace] 100 mg PO DAILY cap 07/10/17 07/21/17 Rx Ipratropium-Albuterol Nebulize 3 ml INHALATION RT-Q4H PRN 07/10/17 07/21/17 Rx [Duoneb 0.5 mg-3 mg/3 ml Soln] ampul.neb Metoprolol Tartrate [Lopressor] 50 mg PO BID tab 07/10/17 07/21/17 Rx ALPRAZolam [Xanax] 1 mg PO Q8H 07/21/17 07/21/17 History Acyclovir [Zovirax] 200 mg PO BID 07/21/17 07/21/17 History Atorvastatin [Lipitor] 20 mg PO HS 07/21/17 07/21/17 History Furosemide [Lasix] 20 mg PO DAILY 07/21/17 07/21/17 History Multivits,Th W-Ca,Fe,Oth Min 1 tab PO DAILY@1400 07/21/17 07/21/17 History [Therapeutic M] Omeprazole 20 mg PO DAILY 07/21/17 07/21/17 History traMADol HCl [Ultram] 50 mg PO Q6H PRN 07/21/17 07/21/17 History Allergies Allergy/AdvReac Type Severity Reaction Status Date / Time codeine Allergy Rapid Verified 07/21/17 14:35 Heart Rate Penicillins Allergy Rash/Hives Verified 07/21/17 14:35 Sulfa (Sulfonamide Allergy Dyspnea Verified 07/21/17 14:35 Antibiotics) Physical Exam Vitals: Vital Signs Temp Pulse Pulse Resp BP BP Pulse Ox 07/22/17 15:54 78 18 07/22/17 14:41 97.2 F L 78 18 147/73 98 07/22/17 07:00 97.8 F 80 18 182/88 99 07/22/17 03:17 97.1 F L 77 18 150/74 98 07/22/17 00:33 97.1 F L 77 16 160/80 100 07/22/17 00:03 98.5 F 78 18 141/73 100 07/21/17 23:59 18 98 07/21/17 23:53 98 F 94 18 160/88 94 L 07/21/17 21:46 98 F 90 18 154/82 93 L 07/21/17 19:37 98.5 F 90 16 140/73 98 07/21/17 18:45 98.3 F 17 152/67 97 07/21/17 18:29 98.1 F 96 18 169/77 07/21/17 18:14 97.9 F 84 18 117/53 96 07/21/17 17:59 97.1 F L 82 16 107/54 Intake and Output 07/22/17 07/22/17 07/22/17 06:59 14:59 22:59 Intake Total 430 720 Output Total 700 300 300 Balance -270 420 -300 Intake: IV 120 360 Sodium Chloride 0.45% 1, 120 360 000 ml @ 30 mls/hr IV . Q24H [facility] Rx#:[id number] Oral 360 Blood Product 310 Rc As-1 Unit 310 [id number] Output: Urine 700 300 300 Other: Voiding Method Bedside Commode Bedside Commode # Voids 2 2 # Bowel Movements 2 2 Weight 65 kg 65 kg Patient Weight 07/23/17 06:59 Weight 65 kg - Constitutional General appearance: no acute distress - EENT Eyes: EOMI - Neck Neck: no lymphadenopathy - Respiratory Respiratory: bilateral: CTA - Cardiovascular Rhythm: regular Heart sounds: normal: S1, S2 - Gastrointestinal General gastrointestinal: soft, no tenderness - Integumentary Intertriginous rash of the groin area bilaterally. Integumentary: rash - Neurologic Neurologic: CNII-XII intact - Musculoskeletal Musculoskeletal: generalized weakness - Psychiatric Psychiatric: A&O x's 3, no appropriate affect Results CBC & Chem 7: 07/22/17 08:40 07/22/17 08:33 Labs: Abnormal Lab Results - Last 24 Hours (Table) 07/21/17 07/21/17 07/21/17 Range/Units 16:00 16:00 16:00 WBC 1.2 L* (3.8-10.6) k/uL RBC 1.61 L (3.80-5.40) m/uL Hgb 5.1 L* D (11.4-16.0) gm/dL Hct 16.3 L* (34.0-46.0) % MCV 101.2 H (80.0-100.0) fL RDW 19.3 H (11.5-15.5) % Plt Count 63 L D (150-450) k/uL Neutrophils # 0.4 L (1.3-7.7) k/uL Neutrophils # (Manual) (1.3-7.7) k/uL Lymphocytes # 0.7 L (1.0-4.8) k/uL PT 16.6 H (9.0-12.0) sec INR 1.8 H (<1.2) APTT >200.0 H* (22.0-30.0) sec Potassium (3.5-5.1) mmol/L Chloride (98-107) mmol/L Carbon Dioxide (22-30) mmol/L BUN (7-17) mg/dL Creatinine (0.52-1.04) mg/dL Calcium (8.4-10.2) mg/dL Lactate Dehydrogenase (313-618) U/L Total Creatine Kinase 27 L (30-135) U/L CK-MB (CK-2) 3.3 H* (0.0-2.4) ng/mL Crossmatch 07/21/17 07/22/17 07/22/17 Range/Units 16:00 08:33 08:40 WBC 2.0 L* (3.8-10.6) k/uL RBC 2.91 L (3.80-5.40) m/uL Hgb 9.2 L D (11.4-16.0) gm/dL Hct 27.2 L (34.0-46.0) % MCV (80.0-100.0) fL RDW 18.7 H (11.5-15.5) % Plt Count 61 L (150-450) k/uL Neutrophils # (1.3-7.7) k/uL Neutrophils # (Manual) 0.80 L (1.3-7.7) k/uL Lymphocytes # (1.0-4.8) k/uL PT (9.0-12.0) sec INR (<1.2) APTT (22.0-30.0) sec Potassium 5.2 H (3.5-5.1) mmol/L Chloride 117 H (98-107) mmol/L Carbon Dioxide 15 L (22-30) mmol/L BUN 31 H (7-17) mg/dL Creatinine 2.80 H (0.52-1.04) mg/dL Calcium 7.5 L (8.4-10.2) mg/dL Lactate Dehydrogenase 283 L (313-618) U/L Total Creatine Kinase (30-135) U/L CK-MB (CK-2) (0.0-2.4) ng/mL Crossmatch See Detail Thrombosis Risk Factor Assmnt - Choose All That Apply Any of the Below Risk Factors Present?: Yes Each Factor Represents 1 point: Obesity (BMI >25) Other Risk Factors: Yes Each Risk Factor Represents 2 Points: Age 61-74 years, Malignancy Other congenital or acquired thrombophilia - If yes, enter type in comment: No Thrombosis Risk Factor Assessment Total Risk Factor Score: 5 Thrombosis Risk Factor Assessment Level: High Risk Assessment and Plan (1) Anemia Current Visit: Yes Status: Acute Code(s): D64.9 - ANEMIA, UNSPECIFIED SNOMED Code(s): 812102813 (2) Weakness Current Visit: Yes Status: Acute Priority: High Code(s): R53.1 - WEAKNESS SNOMED Code(s): 90882752 (3) Multiple myeloma Current Visit: Yes Status: Chronic Priority: Medium Code(s): C90.00 - MULTIPLE MYELOMA NOT HAVING ACHIEVED REMISSION SNOMED Code(s): 859069682 (4) Leukopenia Current Visit: No Status: Acute Priority: High Code(s): D72.819 - DECREASED WHITE BLOOD CELL COUNT, UNSPECIFIED SNOMED Code(s): 29634249 Plan: Element of myelodysplasia is likely related to her treatment and multiple myeloma. Check CBC in a.m. Consult hematology/oncology. Supportive care otherwise. Question need for stool for occult blood. See orders otherwise. Prognosis is guarded secondary to multiple comorbidities and advancing age. Time with Patient: Greater than 30
[2017-07-22 17:43] LABS: Anisocytosis Slight; Basophils % (A) 1 %; Eosinophils % (A) 2 %; HCT 26.1 % (34.0-46.0); HGB 8.4 gm/dL (11.4-16.0); Lymphocytes # (A) 0.8 k/uL (1.0-4.8); Lymphocytes % (A) 60 %; MCH 30.2 pg (25.0-35.0); MCHC 32.1 g/dL (31.0-37.0); MCV 94.2 fL (80.0-100.0); Macrocytosis Slight; Mean Platelet Volume 8.8; Monocytes % (A) 3 %; Neutrophils # (A) 0.4 k/uL (1.3-7.7); Neutrophils % (A) 31 %; Platelet Count 65 k/uL (150-450); Poikilocytosis Slight; RBC 2.77 m/uL (3.80-5.40); RDW 18.9 % (11.5-15.5)
[2017-07-22 17:45] LABS: WBC 1.3 k/uL (3.8-10.6)
--- NOTE | 2017-07-22 19:40 | P.CONS ---
History of Present Illness - Reason for Consult Consult date: 07/22/17 Multiple myeloma Requesting physician: Davie Burden - Chief Complaint anemia - History of Present Illness Pt admitted from rehab for anemia, Hgb 5.1, she has been transfused with improvement in Hgb to 8.4, CBC is otherwise baseline for pt, her coags were terribly off but redraw coags were normal. Pt states that she was to the point in rehab that she could walk the "long hallway" but, strength was waning. She denies recent fever, mild occasional nausea, no recent vomiting, she has been tolerating oral intake, no cough, abd pain or bloating, she has had 3 formed BMs since admit, she has some urinary urgency. She is very aware of her blood counts and kidney function being compromised because of myeloma and she understands that without treatment that this will only get worse. Malignancy history: Pt diagnosed with IgG kappa multiple myeloma July 2011, which was discovered on evaluation of anemia, bone marrow showed 75% involvement at that time with multiple cytogenetic abnormalities including 17P deletion. Pt has received multiple treatment regimens and treatment holidays over the years, she has received newer agents including Pomalyst, kyprolis and darzalex. In May 2017 pt had unfortunate progression of disease with increased M protein as well as progressive pancytopenia from MM, she was hospitalized with pneumonia earlier this month and was participating in rehab so she could get her strength up to start elotuzumab Revlimid and decadron and cont zometa. Review of Systems 10 point ROS as stated in HPI Past Medical History Past Medical History: Cancer, Fibromyalgia, GERD/Reflux, Myocardial Infarction ( ME), Osteoarthritis (OA), Pneumonia, Thyroid Disorder Additional Past Medical History / Comment(s): MULTIPLE MYLEMOMA STAGE 3, chemo induced anemiaCOMPRESSION FRACTURES , sbo 2014(sx). ME - April Last Myocardial Infarction Date:: 05-24-2017 History of Any Multi-Drug Resistant Organisms: None Reported Past Surgical History: Bowel Resection, Heart Catheterization, Hysterectomy Additional Past Surgical History / Comment(s): cystocele,rectocele, rt upper chest power port, cataract sx gaurav, 2015 exploratory laparotomy/lysis of adhesions Past Anesthesia/Blood Transfusion Reactions: Postoperative Nausea & Vomiting ( PONV) Additional Past Anesthesia/Blood Transfusion Reaction / Comm: pt states PONV only with general anesthesia, hx multiple blood transfusions. Pt. states she had ME on 05-24-17 while getting blood transfusion; pt. states she also had just started a new chemo medication which has since been discontinued Smoking Status: Never smoker - Past Family History Father Family Medical History: Cancer Additional Family Medical History / Comment(s): KIDNEY CANCER Mother Family Medical History: Myocardial Infarction (ME) Medications and Allergies Home Medications Medication Instructions Recorded Confirmed Type Acetaminophen Tab [Tylenol] 1,000 mg PO TID@0600,1200,1800 01/04/14 07/21/17 History Levothyroxine Sodium [Levoxyl] 25 mcg PO DAILY@0800 01/04/14 07/21/17 History Lactobacillus Acidophilus 2 tab PO BID 11/14/15 07/21/17 History [Acidophilus] Lidocaine-Prilocaine Cream [Emla 1 applic TOPICAL DAILY PRN 11/14/15 07/21/17 History Cream 2.5%/2.5%] Reagan-E 400 mg PO QAM 11/14/15 07/21/17 History Aspirin 81 mg PO DAILY@1900 09/05/16 07/21/17 History Mirtazapine [Remeron] 7.5 mg PO HS@2200 09/05/16 07/21/17 History Acetaminophen Tab [Tylenol] 1,000 mg PO DAILY@0000 PRN 06/26/17 07/21/17 History Ascorbic Acid [Vitamin C] 500 mg PO DAILY 06/26/17 07/21/17 History Hydrocortisone [Anusol-Hc] 1 applic RECTAL HS PRN 06/26/17 07/21/17 History Isosorbide Mononitrate [Isosorbide 15 mg PO DAILY@0800 06/26/17 07/21/17 History Mononitrate ER] Lisinopril [Zestril] 5 mg PO DAILY@0800 06/26/17 07/21/17 History Docusate [Colace] 100 mg PO DAILY cap 07/10/17 07/21/17 Rx Ipratropium-Albuterol Nebulize 3 ml INHALATION RT-Q4H PRN 07/10/17 07/21/17 Rx [Duoneb 0.5 mg-3 mg/3 ml Soln] ampul.neb Metoprolol Tartrate [Lopressor] 50 mg PO BID tab 07/10/17 07/21/17 Rx ALPRAZolam [Xanax] 1 mg PO Q8H 07/21/17 07/21/17 History Acyclovir [Zovirax] 200 mg PO BID 07/21/17 07/21/17 History Atorvastatin [Lipitor] 20 mg PO HS 07/21/17 07/21/17 History Furosemide [Lasix] 20 mg PO DAILY 07/21/17 07/21/17 History Multivits,Th W-Ca,Fe,Oth Min 1 tab PO DAILY@1400 07/21/17 07/21/17 History [Therapeutic M] Omeprazole 20 mg PO DAILY 07/21/17 07/21/17 History traMADol HCl [Ultram] 50 mg PO Q6H PRN 07/21/17 07/21/17 History Allergies Allergy/AdvReac Type Severity Reaction Status Date / Time codeine Allergy Rapid Verified 07/21/17 14:35 Heart Rate Penicillins Allergy Rash/Hives Verified 07/21/17 14:35 Sulfa (Sulfonamide Allergy Dyspnea Verified 07/21/17 14:35 Antibiotics) Physical Exam Vitals: Vital Signs Temp Pulse Pulse Resp BP BP Pulse Ox 07/22/17 15:54 78 18 07/22/17 14:41 97.2 F L 78 18 147/73 98 07/22/17 07:00 97.8 F 80 18 182/88 99 07/22/17 03:17 97.1 F L 77 18 150/74 98 07/22/17 00:33 97.1 F L 77 16 160/80 100 07/22/17 00:03 98.5 F 78 18 141/73 100 07/21/17 23:59 18 98 07/21/17 23:53 98 F 94 18 160/88 94 L 07/21/17 21:46 98 F 90 18 154/82 93 L 07/21/17 19:37 98.5 F 90 16 140/73 98 Intake and Output 07/22/17 07/22/17 07/22/17 06:59 14:59 22:59 Intake Total 430 720 Output Total 700 300 300 Balance -270 420 -300 Intake: IV 120 360 Sodium Chloride 0.45% 1, 120 360 000 ml @ 30 mls/hr IV . Q24H [facility] Rx#:[id number] Oral 360 Blood Product 310 Rc As-1 Unit 310 [id number] Output: Urine 700 300 300 Other: Voiding Method Bedside Commode Bedside Commode # Voids 2 2 # Bowel Movements 2 2 Weight 65 kg 65 kg Patient Weight 07/23/17 06:59 Weight 65 kg - Constitutional General appearance: average body habitus, cooperative, no acute distress - EENT dry mouth Eyes: anicteric sclerae - Neck Neck: no lymphadenopathy - Respiratory Respiratory: bilateral: diminished (weak inspiratory effort) - Cardiovascular Rhythm: regular Heart sounds: normal: S1, S2 Abnormal Heart Sounds: systolic murmur leg Peripheral Edema: bilateral: None - Gastrointestinal General gastrointestinal: no absent bowel sounds, no decreased bowel sounds, no distended, no hepatomegaly, no hyperactive bowel sounds, normal bowel sounds, no organomegaly, no rigid, no scaphoid, soft, no splenomegaly, no tenderness, no umbilical hernia, no ventral hernia - Integumentary Integumentary: pale - Neurologic slight slurring to the speech, no gross neuro deficits visible - Musculoskeletal Musculoskeletal: generalized weakness - Psychiatric Psychiatric: A&O x's 3, appropriate affect, intact judgment & insight Results CBC & Chem 7: 07/22/17 16:59 07/22/17 08:33 Labs: Abnormal Lab Results - Last 24 Hours (Table) 07/21/17 07/22/17 07/22/17 Range/Units 16:00 08:33 08:40 WBC 2.0 L* (3.8-10.6) k/uL RBC 2.91 L (3.80-5.40) m/uL Hgb 9.2 L D (11.4-16.0) gm/dL Hct 27.2 L (34.0-46.0) % RDW 18.7 H (11.5-15.5) % Plt Count 61 L (150-450) k/uL Neutrophils # (1.3-7.7) k/uL Neutrophils # (Manual) 0.80 L (1.3-7.7) k/uL Lymphocytes # (1.0-4.8) k/uL Potassium 5.2 H (3.5-5.1) mmol/L Chloride 117 H (98-107) mmol/L Carbon Dioxide 15 L (22-30) mmol/L BUN 31 H (7-17) mg/dL Creatinine 2.80 H (0.52-1.04) mg/dL Calcium 7.5 L (8.4-10.2) mg/dL Lactate Dehydrogenase 283 L (313-618) U/L Crossmatch See Detail 07/22/17 Range/Units 16:59 WBC 1.3 L* (3.8-10.6) k/uL RBC 2.77 L (3.80-5.40) m/uL Hgb 8.4 L (11.4-16.0) gm/dL Hct 26.1 L (34.0-46.0) % RDW 18.9 H (11.5-15.5) % Plt Count 65 L (150-450) k/uL Neutrophils # 0.4 L (1.3-7.7) k/uL Neutrophils # (Manual) (1.3-7.7) k/uL Lymphocytes # 0.8 L (1.0-4.8) k/uL Potassium (3.5-5.1) mmol/L Chloride (98-107) mmol/L Carbon Dioxide (22-30) mmol/L BUN (7-17) mg/dL Creatinine (0.52-1.04) mg/dL Calcium (8.4-10.2) mg/dL Lactate Dehydrogenase (313-618) U/L Crossmatch Assessment and Plan (1) Multiple myeloma Narrative/Plan: Pt CBC abnormalities and renal dysfunction are both caused by myeloma involvement in the bone marrow and abnormal proteins in the blood stream. Pt is aware that as long as she is not on treatment neither condition is going to improve. She is aware that she cannot have any treatment until such time that she can go home. Recommend weekly CBC while in rehab and PRBC transfusions for Hgb <7 to try and keep pt outpatient if possible. Pt s/p 2 units, transfuse to keep Hgb around 7 Will give GCSF while inpatient No intervention for plt of 63,000 Pt will cont to try and rehabilitate for now. If she does not feel that she can improve then she may consider comfort measures only. She will continue to communicate her wishes and inform us of her decisions. Current Visit: Yes Status: Chronic Priority: High Code(s): C90.00 - MULTIPLE MYELOMA NOT HAVING ACHIEVED REMISSION SNOMED Code(s): 173337238
[2017-07-22] MEDS: ASPIRIN 81 MG PO SCH (22:00)
[2017-07-22] MEDS: FILGRASTIM-SNDZ 480 MCG/0.8 ML SYRINGE SQ SCH (22:00)
[2017-07-22] MEDS: ATORVASTATIN 20 MG TAB PO SCH (22:00)
[2017-07-22] MEDS: MIRTAZAPINE 15 MG TAB PO SCH (22:01)
[2017-07-22] MEDS: SODIUM CHLORIDE 0.45% 1,000 ML IV SCH (22:02)
[2017-07-22 22:07] LABS: Appearance,Urine Cloudy (Clear); Bacteria,Urine Rare /hpf; Bilirubin,Urine Negative (Negative); Blood,Urine Negative (Negative); Budding Yeast,Urine Few /hpf; Color,Urine Light Yellow; Glucose,Urine (UA) Negative (Negative); Ketones,Urine Negative (Negative); Leukocyte Esterase,Urine Moderate (Negative); Nitrite,Urine Positive (Negative); PH, Urine 7.5 (5.0-8.0); Protein,Urine 2+ (Negative); RBC,Urine 1 /hpf (0-5); Specific Gravity,Urine 1.009 (1.001-1.035); Squamous Epithelial Cell,Urine 2 /hpf (0-4); Urobilinogen,Urine <2.0 mg/dL (<2.0); WBC,Urine 73 /hpf (0-5)
[2017-07-23 07:24] LABS: Anisocytosis Slight; HGB 8.6 gm/dL (11.4-16.0); MCH 30.7 pg (25.0-35.0); MCV 92.8 fL (80.0-100.0); Macrocytosis Slight; Mean Platelet Volume 8.8; RDW 18.7 % (11.5-15.5)
[2017-07-23 07:36] LABS: WBC 1.7 k/uL (3.8-10.6)
[2017-07-23] MEDS ORDERED: ONDANSETRON ODT 4 MG TAB PO PRN (07:48)
[2017-07-23] MEDS ORDERED: ONDANSETRON 4 MG/2 ML VIAL IVP PRN (07:48)
[2017-07-23 07:56] LABS: Platelet Count 58 k/uL (150-450)
[2017-07-23] MEDS: METOPROLOL TARTRATE 50 MG TAB PO SCH ×2 (08:15→20:16)
[2017-07-23] MEDS: LISINOPRIL 5 MG TAB PO SCH (08:15)
[2017-07-23] MEDS: ISOSORBIDE MONONITRATE ER 30 MG TAB.ER.24H PO SCH (08:15)
[2017-07-23] MEDS: PANTOPRAZOLE 40 MG TABLET PO SCH (08:15)
[2017-07-23] MEDS: ASCORBIC ACID 500 MG TAB PO SCH (08:16)
[2017-07-23] MEDS: FUROSEMIDE 20 MG TAB PO SCH (08:16)
[2017-07-23] MEDS: LACTOBACILLUS ACIDOPH & BULGAR 1 EACH PACKET PO SCH ×2 (08:16→20:15)
[2017-07-23] MEDS: DOCUSATE 100 MG CAP PO SCH (08:16)
[2017-07-23] MEDS: LEVOTHYROXINE 25 MCG TAB PO SCH (08:16)
[2017-07-23] MEDS: ACETAMINOPHEN TAB 500 MG TAB PO SCH ×4 (08:23→20:15)
[2017-07-23] MEDS: ALPRAZolam 1 MG TAB PO SCH ×3 (08:24→20:15)
[2017-07-23] MEDS: NYSTATIN 100,000 UNIT/GM POWD 15 GM TOPICAL SCH ×2 (08:25→20:16)
--- NOTE | 2017-07-23 12:07 | P.PN ---
Subjective Progress Note Date: 07/23/17 Principal diagnosis: Continuing CARE/pancytopenia This is a continue present on a 76-ye admitted for pancytopenia. She Has an underlying history of multiple myeloma. The patient states significant weakness. Objective - Vital Signs Vital signs: Vital Signs Temp 97.6 F 07/22/17 21:14 Pulse 75 07/22/17 21:14 Resp 18 07/22/17 21:14 BP 145/72 07/22/17 21:14 Pulse Ox 98 07/22/17 21:14 Intake & Output 07/22/17 07/23/17 07/23/17 18:59 06:59 18:59 Intake Total 920 270 Output Total 600 Balance 320 270 Weight 65 kg Intake: IV 360 270 Sodium Chloride 0.45% 1, 360 270 000 ml @ 30 mls/hr IV . Q24H [facility] Rx#:[id number] Oral 560 Output: Urine 600 Other: Voiding Method Bedside Commode Toilet # Voids 2 1 # Bowel Movements 2 1 - Constitutional General appearance: Present: average body habitus - EENT Eyes: Absent: abnormal pupil - Neck Neck: Absent: lymphadenopathy - Respiratory Respiratory: bilateral: CTA - Cardiovascular Rhythm: regular Heart sounds: normal: S1, S2 - Gastrointestinal General gastrointestinal: Present: soft. Absent: tenderness - Integumentary Integumentary: Absent: cellulitis - Psychiatric Psychiatric: Present: A&O x's 3. Absent: appropriate affect - Labs CBC & Chem 7: 07/23/17 06:51 07/22/17 08:33 Labs: Abnormal Lab Results - Last 24 Hours (Table) 07/22/17 07/22/17 07/22/17 Range/Units 08:33 08:40 16:59 WBC 2.0 L* 1.3 L* (3.8-10.6) k/uL RBC 2.91 L 2.77 L (3.80-5.40) m/uL Hgb 9.2 L D 8.4 L (11.4-16.0) gm/dL Hct 27.2 L 26.1 L (34.0-46.0) % RDW 18.7 H 18.9 H (11.5-15.5) % Plt Count 61 L 65 L (150-450) k/uL Neutrophils # 0.4 L (1.3-7.7) k/uL Neutrophils # (Manual) 0.80 L (1.3-7.7) k/uL Lymphocytes # 0.8 L (1.0-4.8) k/uL Potassium 5.2 H (3.5-5.1) mmol/L Chloride 117 H (98-107) mmol/L Carbon Dioxide 15 L (22-30) mmol/L BUN 31 H (7-17) mg/dL Creatinine 2.80 H (0.52-1.04) mg/dL Calcium 7.5 L (8.4-10.2) mg/dL Lactate Dehydrogenase 283 L (313-618) U/L Urine Appearance (Clear) Urine Protein (Negative) Urine Nitrite (Negative) Ur Leukocyte Esterase (Negative) Urine WBC (0-5) /hpf Urine WBC Clumps (None) /hpf Urine Bacteria (None) /hpf Urine Yeast (Budding) (None) /hpf 07/22/17 07/23/17 Range/Units 21:49 06:51 WBC 1.7 L* (3.8-10.6) k/uL RBC 2.80 L (3.80-5.40) m/uL Hgb 8.6 L (11.4-16.0) gm/dL Hct 26.0 L (34.0-46.0) % RDW 18.7 H (11.5-15.5) % Plt Count (150-450) k/uL Neutrophils # (1.3-7.7) k/uL Neutrophils # (Manual) (1.3-7.7) k/uL Lymphocytes # (1.0-4.8) k/uL Potassium (3.5-5.1) mmol/L Chloride (98-107) mmol/L Carbon Dioxide (22-30) mmol/L BUN (7-17) mg/dL Creatinine (0.52-1.04) mg/dL Calcium (8.4-10.2) mg/dL Lactate Dehydrogenase (313-618) U/L Urine Appearance Cloudy H (Clear) Urine Protein 2+ H (Negative) Urine Nitrite Positive H (Negative) Ur Leukocyte Esterase Moderate H (Negative) Urine WBC 73 H (0-5) /hpf Urine WBC Clumps Few H (None) /hpf Urine Bacteria Rare H (None) /hpf Urine Yeast (Budding) Few H (None) /hpf Assessment and Plan (1) Anemia Current Visit: Yes Status: Acute Code(s): D64.9 - ANEMIA, UNSPECIFIED SNOMED Code(s): 210429099 (2) Weakness Current Visit: Yes Status: Acute Priority: High Code(s): R53.1 - WEAKNESS SNOMED Code(s): 23078316 (3) Multiple myeloma Current Visit: Yes Status: Chronic Priority: High Code(s): C90.00 - MULTIPLE MYELOMA NOT HAVING ACHIEVED REMISSION SNOMED Code(s): 380168105 (4) Leukopenia Current Visit: No Status: Acute Priority: High Code(s): D72.819 - DECREASED WHITE BLOOD CELL COUNT, UNSPECIFIED SNOMED Code(s): 21083460 Plan: Continue current regimen with supportive care. Check CBC and CMP in the a.m. See orders otherwise. Time with Patient: Less than 30
[2017-07-23] MEDS ORDERED: NITROFURANTOIN MONOHYD/M-CRYST 100 MG CAP PO SCH (12:15)
[2017-07-23] MEDS: MULTIVITAMINS, THERA 1 EACH TAB PO SCH (13:40)
--- NOTE | 2017-07-23 14:24 | CDI ---
Last Revision, April 2017 Documentation Clarification Form Date: 07/23/2017 2:17:00 PM From: Kristie Woody RN Admit Date: 07/21/2017 4:29:00 PM Patient Name: Kavita Rivers Visit Number: [id number] ATTENTION: The Clinical Documentation Specialists (CDI) and [facility] Coding Staff appreciate your assistance in clarifying documentation. Please respond to the clarification below the line at the bottom and electronically sign. The CDI & [facility] Coding staff will review the response and follow-up if needed. Please note: Queries are made part of the Legal Health Record. If you have any questions, please contact the author of this message via ITS. Dr. Sami Cardenas, A diagnosis of anemia lacks specificity to accurately reflect your patients severity of condition and clarification is needed. History/Risk Factors: multiple myeloma, fibromyalgia, gerd, mi., oa, pneumonia Clinical indicators: Hemoglobin on admission: 5.1 Hematocrit on admission: 16.3 Treatment: 2 units of PRBCs transfused, iron, monitoring labs In order to capture the severity of condition, please clarify the type of anemia and etiology if known: Acute blood loss anemia Acute on chronic blood loss anemia Chronic blood loss anemia Iron deficiency anemia Anemia due to malignancy Nutritional anemia Anemia of chronic kidney disease Unable to determine Other, please specify Please continue to document in your progress notes and discharge summary in order to capture severity of illness and risk of mortality. Include clinical findings that support your diagnosis. MTDD
[2017-07-23] MEDS: ASPIRIN 81 MG PO SCH (20:16)
[2017-07-23] MEDS: ATORVASTATIN 20 MG TAB PO SCH (20:16)
[2017-07-23] MEDS: MIRTAZAPINE 15 MG TAB PO SCH (21:01)
[2017-07-23] MEDS: FILGRASTIM-SNDZ 480 MCG/0.8 ML SYRINGE SQ SCH (21:01)
[2017-07-23 21:19] VITALS: RESP 16
[2017-07-24] MEDS: SODIUM CHLORIDE 0.45% 1,000 ML IV SCH (02:36)
[2017-07-24] MEDS: ALPRAZolam 1 MG TAB PO SCH ×2 (05:46→12:00)
[2017-07-24] MEDS: ACETAMINOPHEN TAB 500 MG TAB PO SCH ×2 (05:46→12:00)
--- NOTE | 2017-07-24 07:54 | CDI ---
Last Revision, April 2017 Documentation Clarification Form Date: 07/24/2017 7:44:00 AM From: Kristie Woody RN Admit Date: 07/21/2017 4:29:00 PM Patient Name: Kavita Rivers Visit Number: [id number] ATTENTION: The Clinical Documentation Specialists (CDI) and [facility] Coding Staff appreciate your assistance in clarifying documentation. Please respond to the clarification below the line at the bottom and electronically sign. The CDI & [facility] Coding staff will review the response and follow-up if needed. Please note: Queries are made part of the Legal Health Record. If you have any questions, please contact the author of this message via ITS. Dr. Sami Cardenas, History/Risk Factors: Multiple Myeloma, fibromyalgia, GERD, GA, OA, Pneumonia, Thyroid disorder currently came in for weakness and abnormal labs Patients BUN/CR/GFR on admission: 36/2.90/16. Clinical Indicators: Current BUN/Cr/GFR :07/22: 31/2./ Treatment: IVF : 4.45 @30 Monitor Labs In order to capture the severity of condition, please clarify if the condition signifies: Acute renal failure, Please specify etiology (if known): Acute kidney injury Acute on chronic renal failure CKD Stage 4 GFR 15-29 CKD Stage 5 GFR <15 Other (Please Specify): Unable to determine: Please continue to document in your progress notes and discharge summary in order to capture severity of illness and risk of mortality. Include clinical findings that support your diagnosis. MTDD
[2017-07-24 07:55] VITALS: BP 139/67; PULSE 78; TEMP 98.4
--- NOTE | 2017-07-24 08:10 | P.DS ---
Providers Date of admission: 07/21/17 16:29 Attending physician: Sami Cardenas Consults: 07/21/17 16:29 Consult Physician Routine Consulting Provider: Nirmala Sher Consult Reason/Comments: known Do you want consulting provider notified?: Yes Primary care physician: Sami Cardenas - Discharge Diagnosis(es) (1) Anemia Current Visit: Yes Status: Acute (2) Weakness Current Visit: Yes Status: Acute Priority: High (3) Multiple myeloma Current Visit: Yes Status: Chronic Priority: High (4) Leukopenia Current Visit: No Status: Acute Priority: High Hospital Course: This discharge summary 76-year-old white female essentially admitted for weakness and pancytopenia with hyperkalemia. This was addressed with appropriate medical treatment as noted in chart previously. The patient had significant weakness and had significant pancytopenia related to multiple myeloma and mild dysplasia. The patient has not been stabilized and when cleared by oncology will be discharged to be transferred back to [facility] where she was originally placed secondary to history of pneumonia. The patient has improved and will follow me in about 7-10 days. Patient Condition at Discharge: Fair Plan - Discharge Summary Discharge Rx Participant: No New Discharge Prescriptions: No Action Acetaminophen Tab [Tylenol] 1,000 mg PO TID@0600,1200,1800 Levothyroxine Sodium [Levoxyl] 25 mcg PO DAILY@0800 Reagan-E 400 mg PO QAM Lactobacillus Acidophilus [Acidophilus] 2 tab PO BID Lidocaine-Prilocaine Cream [Emla Cream 2.5%/2.5%] 1 applic TOPICAL DAILY PRN PRN Reason: Pain Mirtazapine [Remeron] 7.5 mg PO HS@2200 Aspirin 81 mg PO DAILY@1900 Lisinopril [Zestril] 5 mg PO DAILY@0800 Isosorbide Mononitrate [Isosorbide Mononitrate ER] 15 mg PO DAILY@0800 Ascorbic Acid [Vitamin C] 500 mg PO DAILY Acetaminophen Tab [Tylenol] 1,000 mg PO DAILY@0000 PRN PRN Reason: Pain Hydrocortisone [Anusol-Hc] 1 applic RECTAL HS PRN PRN Reason: Itching Docusate [Colace] 100 mg PO DAILY cap Ipratropium-Albuterol Nebulize [Duoneb 0.5 mg-3 mg/3 ml Soln] 3 ml INHALATION RT-Q4H PRN ampul.neb PRN Reason: Shortness Of Breath Or Wheezing Metoprolol Tartrate [Lopressor] 50 mg PO BID tab Acyclovir [Zovirax] 200 mg PO BID Atorvastatin [Lipitor] 20 mg PO HS Furosemide [Lasix] 20 mg PO DAILY Multivits,Th W-Ca,Fe,Oth Min [Therapeutic M] 1 tab PO DAILY@1400 Omeprazole 20 mg PO DAILY ALPRAZolam [Xanax] 1 mg PO Q8H traMADol HCl [Ultram] 50 mg PO Q6H PRN PRN Reason: Breakthrough Pain Discharge Medication List Acetaminophen Tab [Tylenol] 1,000 mg PO TID@0600,1200,1800 01/04/14 [History] Levothyroxine Sodium [Levoxyl] 25 mcg PO DAILY@0800 01/04/14 [History] Lactobacillus Acidophilus [Acidophilus] 2 tab PO BID 11/14/15 [History] Lidocaine-Prilocaine Cream [Emla Cream 2.5%/2.5%] 1 applic TOPICAL DAILY PRN [History] Reagan-E 400 mg PO QAM 11/14/15 [History] Aspirin 81 mg PO DAILY@1900 09/05/16 [History] Mirtazapine [Remeron] 7.5 mg PO HS@2200 09/05/16 [History] Acetaminophen Tab [Tylenol] 1,000 mg PO DAILY@0000 PRN 06/26/17 [History] Ascorbic Acid [Vitamin C] 500 mg PO DAILY 06/26/17 [History] Hydrocortisone [Anusol-Hc] 1 applic RECTAL HS PRN 06/26/17 [History] Isosorbide Mononitrate [Isosorbide Mononitrate ER] 15 mg PO DAILY@0800 06/26/17 [History] Lisinopril [Zestril] 5 mg PO DAILY@0800 06/26/17 [History] Docusate [Colace] 100 mg PO DAILY cap 07/10/17 [Rx] Ipratropium-Albuterol Nebulize [Duoneb 0.5 mg-3 mg/3 ml Soln] 3 ml INHALATION RT -Q4H PRN ampul.neb 07/10/17 [Rx] Metoprolol Tartrate [Lopressor] 50 mg PO BID tab 07/10/17 [Rx] ALPRAZolam [Xanax] 1 mg PO Q8H 07/21/17 [History] Acyclovir [Zovirax] 200 mg PO BID 07/21/17 [History] Atorvastatin [Lipitor] 20 mg PO HS 07/21/17 [History] Furosemide [Lasix] 20 mg PO DAILY 07/21/17 [History] Multivits,Th W-Ca,Fe,Oth Min [Therapeutic M] 1 tab PO DAILY@1400 07/21/17 [ History] Omeprazole 20 mg PO DAILY 07/21/17 [History] traMADol HCl [Ultram] 50 mg PO Q6H PRN 07/21/17 [History] Follow up Appointment(s)/Referral(s): Sami Cardenas MD [Primary Care Provider] - 1-2 days
[2017-07-24] MEDS: ISOSORBIDE MONONITRATE ER 30 MG TAB.ER.24H PO SCH (08:45)
[2017-07-24] MEDS: ASCORBIC ACID 500 MG TAB PO SCH (08:45)
[2017-07-24] MEDS: LISINOPRIL 5 MG TAB PO SCH (08:45)
[2017-07-24] MEDS: LEVOTHYROXINE 25 MCG TAB PO SCH (08:45)
[2017-07-24] MEDS: DOCUSATE 100 MG CAP PO SCH (08:45)
[2017-07-24] MEDS: FUROSEMIDE 20 MG TAB PO SCH (08:45)
[2017-07-24] MEDS: PANTOPRAZOLE 40 MG TABLET PO SCH (08:45)
[2017-07-24] MEDS: LACTOBACILLUS ACIDOPH & BULGAR 1 EACH PACKET PO SCH (08:45)
[2017-07-24] MEDS: METOPROLOL TARTRATE 50 MG TAB PO SCH (08:45)
[2017-07-24] MEDS: NYSTATIN 100,000 UNIT/GM POWD 15 GM TOPICAL SCH (08:46)
== END 2017-07-24 13:20 | DRG 809 ==
LOC: EC 14:19 → 5MS5E 16:29
PROVIDERS: ADMIT Family Medicine; ATTEND Family Medicine
PROC: 30233N1 Transfusion of Nonautologous Red Blood Cells into Peripheral Vein, Percutaneous Approach (ICD-10-PCS; principal; 2017-07-21)
DX: D61.810 Antineoplastic chemotherapy induced pancytopenia (principal); C90.00 Multiple myeloma not having achieved remission; E87.5 Hyperkalemia; T45.1X5A Adverse effect of antineoplastic and immunosuppressive drugs, initial encounter; I10 Essential (primary) hypertension; I25.2 Old myocardial infarction; K21.9 Gastro-esophageal reflux disease without esophagitis; M79.7 Fibromyalgia; N28.9 Disorder of kidney and ureter, unspecified; Z79.82 Long term (current) use of aspirin; Z79.899 Other long term (current) drug therapy; Z80.51 Family history of malignant neoplasm of kidney; Z82.49 Family history of ischemic heart disease and other diseases of the circulatory system; Z87.01 Personal history of pneumonia (recurrent); Z79.890 Hormone replacement therapy; E03.9 Hypothyroidism, unspecified; M19.90 Unspecified osteoarthritis, unspecified site; R39.15 Urgency of urination; D64.9 Anemia, unspecified
CPT/HCPCS: 36415; 80048; 80053; 81001; 82272; 82550; 82553; 83615; 83690; 83735; 84484; 85025; 85027; 85384; 85610; 85730; 86850; 86900; 86901; 86920; 93005; 94760; 96360; 96361; 99285

== ENCOUNTER 2017-09-10 12:19 | Inpatient (IN) | payer MEDICARE, BC ==
[2017-09-10] MEDS ORDERED: SODIUM CHLORIDE 0.9% 1,000 ML IV STA ×2 (12:35)
[2017-09-10] MEDS ORDERED: SODIUM CHLORIDE 0.9% 500 ML IV STA (12:35)
--- NOTE | 2017-09-10 13:34 | ED ---
General Adult HPI - General Chief complaint: Syncope Stated complaint: Hypotension/Dehydration Time Seen by Provider: 09/10/17 12:19 Source: patient, EMS, RN notes reviewed Mode of arrival: EMS Limitations: no limitations - History of Present Illness Initial comments: This is a 76-year-old female history of multiple myeloma was brought in by EMS for evaluation of 2 days of increasing weakness she's had chills also today she could not sit up and asked the fell over and was caught by her . Unclear whether she passed out or not. She has a history of multiple myeloma also stage III kidney disease. She states she's had no urine output for 2 days she was noted have a blood pressure of 80/40 per EMS. No urine output again for 2 days decreased oral intake. Per report her old blood pressures about 140/ 90. She does not complain of any particular pain no blurry vision or other symptoms at this time no other modifying factors she has had previous treatments for the multiple myeloma. - Related Data Home Medications Medication Instructions Recorded Confirmed Acetaminophen Tab [Tylenol] 1,000 mg PO Q6H PRN 01/04/14 09/10/17 Levothyroxine Sodium [Levoxyl] 25 mcg PO DAILY 01/04/14 09/10/17 Lactobacillus Acidophilus 2 tab PO BID 11/14/15 09/10/17 [Acidophilus] Aspirin 81 mg PO HS 09/05/16 09/10/17 Mirtazapine [Remeron] 7.5 mg PO HS 09/05/16 09/10/17 Ascorbic Acid [Vitamin C] 500 mg PO DAILY 06/26/17 09/10/17 Isosorbide Mononitrate [Isosorbide 15 mg PO DAILY 06/26/17 09/10/17 Mononitrate ER] Lisinopril [Zestril] 5 mg PO DAILY@1200 06/26/17 09/10/17 Acyclovir [Zovirax] 200 mg PO BID 07/21/17 09/10/17 Multivits,Th W-Ca,Fe,Oth Min 1 tab PO DAILY 07/21/17 09/10/17 [Therapeutic M] ALPRAZolam [Xanax] 1 mg PO TID PRN 09/10/17 09/10/17 Ferrous Sulfate [Feosol] 325 mg PO DAILY@1200 09/10/17 09/10/17 Furosemide [Lasix] 40 mg PO DAILY@1200 09/10/17 09/10/17 Lansoprazole [Prevacid] 30 mg PO DAILY 09/10/17 09/10/17 Nystatin 100,000 Unit/gm Powd 1 applic TOPICAL BID PRN 09/10/17 09/10/17 [Mycostatin Powder] Simvastatin 40 mg PO HS 09/10/17 09/10/17 Previous Rx's Medication Instructions Recorded Ipratropium-Albuterol Nebulize 3 ml INHALATION RT-Q4H PRN 07/10/17 [Duoneb 0.5 mg-3 mg/3 ml Soln] ampul.neb Metoprolol Tartrate [Lopressor] 50 mg PO BID tab 07/10/17 Allergies Allergy/AdvReac Type Severity Reaction Status Date / Time codeine Allergy Rapid Verified 09/10/17 13:24 Heart Rate Penicillins Allergy Rash/Hives Verified 09/10/17 13:24 Sulfa (Sulfonamide Allergy Dyspnea Verified 09/10/17 13:24 Antibiotics) Review of Systems ROS Statement: Those systems with pertinent positive or pertinent negative responses have been documented in the HPI. ROS Other: All systems not noted in ROS Statement are negative. Past Medical History Past Medical History: Cancer, Fibromyalgia, GERD/Reflux, Myocardial Infarction ( [place]), Osteoarthritis (OA), Pneumonia, Thyroid Disorder Additional Past Medical History / Comment(s): MULTIPLE MYLEMOMA STAGE 3, COMPRESSION FRACTURES. IN - April Last Myocardial Infarction Date:: 05-24-2017 History of Any Multi-Drug Resistant Organisms: None Reported Past Surgical History: Bowel Resection, Heart Catheterization, Hysterectomy Additional Past Surgical History / Comment(s): cystocele,rectocele, rt upper chest power port Past Anesthesia/Blood Transfusion Reactions: Postoperative Nausea & Vomiting ( PONV) Additional Past Anesthesia/Blood Transfusion Reaction / Comment(s): pt states PONV only with general anesthesia. Pt. states she had IN on 05-24-18 while getting blood transfusion; pt. states she also had just started a new chemo medication which has since been discontinued Past Psychological History: No Psychological Hx Reported Smoking Status: Never smoker Past Alcohol Use History: None Reported Past Drug Use History: None Reported - Past Family History Father Family Medical History: Cancer Additional Family Medical History / Comment(s): KIDNEY CANCER Mother Family Medical History: Myocardial Infarction ([place]) General Exam - General Exam Comments Initial Comments: This is a well-developed well-nourished awake alert oriented 3 female Limitations: no limitations General appearance: alert, lethargic Head exam: Present: atraumatic, normocephalic, normal inspection Eye exam: Present: normal appearance, PERRL, EOMI. Absent: scleral icterus, conjunctival injection, periorbital swelling ENT exam: Present: mucous membranes dry Neck exam: Present: normal inspection. Absent: tenderness, meningismus, lymphadenopathy Respiratory exam: Present: normal lung sounds bilaterally. Absent: respiratory distress, wheezes, rales, rhonchi, stridor Cardiovascular Exam: Present: regular rate, normal rhythm, normal heart sounds. Absent: systolic murmur, diastolic murmur, rubs, gallop, clicks GI/Abdominal exam: Present: soft, normal bowel sounds. Absent: distended, tenderness, guarding, rebound, rigid Extremities exam: Present: normal inspection, full ROM, normal capillary refill. Absent: tenderness, pedal edema, joint swelling, calf tenderness Back exam: Present: normal inspection Neurological exam: Present: alert, oriented X3, CN II-XII intact Psychiatric exam: Present: normal affect, normal mood Skin exam: Present: warm, dry, intact, normal color. Absent: rash Course Vital Signs 09/10/17 09/10/17 12:33 14:55 Temperature 99.4 F 97.6 F Pulse Rate 78 75 Respiratory 18 18 Rate Blood Pressure 97/51 121/60 O2 Sat by Pulse 95 98 Oximetry - Reevaluation(s) Reevaluation #1: 09/10/17 15:41 Reevaluation patient reveals that she by history is been having some streaks of blood in her stool for the past week with mucus. I was able to observe this and a commode. She does states she's had blood transfusion before. She did have laboratory work done in her doctor's office on and [facility] was a 0.2 by mouth was 54 creatinine 3.68 the patient will be admitted I did discuss case the patient and her daughter. Reevaluation #2: 09/10/17 15:47 Patient did have a low-grade temperature upon arrival source is not identified patient has had neutropenia she'll be started on some antibiotics. Medical Decision Making - Medical Decision Making I did discussed the findings with the patient family members patient be admitted with consultation oncology and nephrology. - Lab Data Result diagrams: 09/10/17 13:54 09/10/17 13:54 Lab Results 09/10/17 09/10/17 09/10/17 Range/Units 13:54 13:54 13:54 WBC 0.7 L* (3.8-10.6) k/uL RBC 2.02 L (3.80-5.40) m/uL Hgb 6.0 L* (11.4-16.0) gm/dL Hct 18.2 L* (34.0-46.0) % MCV 90.1 (80.0-100.0) fL MCH 30.0 (25.0-35.0) pg MCHC 33.3 (31.0-37.0) g/dL RDW 17.5 H (11.5-15.5) % Plt Count 23 L* (150-450) k/uL Differential Comment Manual Slide Review Performed Large Platelets Present Polychromasia Present Anisocytosis Slight Sodium 135 L (137-145) mmol/L Potassium 4.8 (3.5-5.1) mmol/L Chloride 111 H (98-107) mmol/L Carbon Dioxide 14 L (22-30) mmol/L Anion Gap 10 mmol/L BUN 61 H (7-17) mg/dL Creatinine 4.46 H (0.52-1.04) mg/dL Est GFR (CKD-EPI)AfAm 11 (>60 ml/min/1.73 sqM) Est GFR (CKD-EPI)NonAf 9 (>60 ml/min/1.73 sqM) Glucose 84 (74-99) mg/dL Plasma Lactic Acid Sg <0.5 L (0.7-2.0) mmol/L Calcium 7.3 L (8.4-10.2) mg/dL Magnesium 1.6 (1.6-2.3) mg/dL Total Bilirubin 0.2 (0.2-1.3) mg/dL AST 21 (14-36) U/L ALT 28 (9-52) U/L Alkaline Phosphatase 83 (38-126) U/L Total Creatine Kinase (30-135) U/L CK-MB (CK-2) (0.0-2.4) ng/mL CK-MB (CK-2) Rel Index Total Protein 5.6 L (6.3-8.2) g/dL Albumin 2.5 L (3.5-5.0) g/dL Amylase 35 (30-110) U/L Lipase 64 (23-300) U/L Urine Color Urine Appearance (Clear) Urine pH (5.0-8.0) Ur Specific [place] (1.001-1.035) Urine Protein (Negative) Urine Glucose (UA) (Negative) Urine Ketones (Negative) Urine Blood (Negative) Urine Nitrite (Negative) Urine Bilirubin (Negative) Urine Urobilinogen (<2.0) mg/dL Ur Leukocyte Esterase (Negative) Urine RBC (0-5) /hpf Urine WBC (0-5) /hpf Ur Squamous Epith Cells (0-4) /hpf Urine Bacteria (None) /hpf Urine Mucus (None) /hpf 09/10/17 09/10/17 Range/Units 13:54 14:50 WBC (3.8-10.6) k/uL RBC (3.80-5.40) m/uL Hgb (11.4-16.0) gm/dL Hct (34.0-46.0) % MCV (80.0-100.0) fL MCH (25.0-35.0) pg MCHC (31.0-37.0) g/dL RDW (11.5-15.5) % Plt Count (150-450) k/uL Differential Comment Manual Slide Review Large Platelets Polychromasia Anisocytosis Sodium (137-145) mmol/L Potassium (3.5-5.1) mmol/L Chloride (98-107) mmol/L Carbon Dioxide (22-30) mmol/L Anion Gap mmol/L BUN (7-17) mg/dL Creatinine (0.52-1.04) mg/dL Est GFR (CKD-EPI)AfAm (>60 ml/min/1.73 sqM) Est GFR (CKD-EPI)NonAf (>60 ml/min/1.73 sqM) Glucose (74-99) mg/dL Plasma Lactic Acid Sg (0.7-2.0) mmol/L Calcium (8.4-10.2) mg/dL Magnesium (1.6-2.3) mg/dL Total Bilirubin (0.2-1.3) mg/dL AST (14-36) U/L ALT (9-52) U/L Alkaline Phosphatase (38-126) U/L Total Creatine Kinase 27 L (30-135) U/L CK-MB (CK-2) 1.0 (0.0-2.4) ng/mL CK-MB (CK-2) Rel Index 3.7 Total Protein (6.3-8.2) g/dL Albumin (3.5-5.0) g/dL Amylase (30-110) U/L Lipase (23-300) U/L Urine Color Light Yellow Urine Appearance Cloudy H (Clear) Urine pH 5.5 (5.0-8.0) Ur Specific [place] 1.011 (1.001-1.035) Urine Protein 2+ H (Negative) Urine Glucose (UA) Negative (Negative) Urine Ketones Negative (Negative) Urine Blood Negative (Negative) Urine Nitrite Negative (Negative) Urine Bilirubin Negative (Negative) Urine Urobilinogen <2.0 (<2.0) mg/dL Ur Leukocyte Esterase Large H (Negative) Urine RBC 8 H (0-5) /hpf Urine WBC 85 H (0-5) /hpf Ur Squamous Epith Cells 1 (0-4) /hpf Urine Bacteria Occasional H (None) /hpf Urine Mucus Rare H (None) /hpf - EKG Data -: EKG Interpreted by Pr EKG shows normal: sinus rhythm (Neuro sinus rhythm a 75 appear interval 148 QRS duration 86 QT since QTC of 412/[address]-T wave changes.) - Radiology Data Radiology results: report reviewed, image reviewed Disposition Clinical Impression: Acute renal failure, Anemia, Multiple myeloma, Neutropenia, Thrombocytopenia, Febrile illness, acute Disposition: ADMITTED IP TO THIS HOSP Condition: Serious Is patient prescribed a controlled substance at d/c from ED?: No Referrals: Sami Cardenas MD [Primary Care Provider] - 1-2 days
[2017-09-10 14:21] LABS: Total Protein 5.6 g/dL (6.3-8.2)
--- NOTE | 2017-09-10 14:23 | XR ---
EXAMINATION TYPE: XR chest 1V portable DATE OF EXAM: 09/10/2017 COMPARISON: Prior chest x-ray 07/08/2017 HISTORY: Pain, multiple myeloma, dehydration and weakness TECHNIQUE: Single frontal view of the chest is obtained. FINDINGS: Port-A-Cath is stable. Patient is rotated. There is no focal air space opacity, pleural eff usion, or pneumothorax seen. Improvement in the atelectatic change seen on prior exam. The cardiac si lhouette size is stable accounting for differences in technique. Punched-out bone lesions are noted w ithin the skeleton compatible with patient's history of multiple myeloma, underlying kyphosis is pres ent as noted on prior exam. IMPRESSION: Some improvement in aeration, there is not additional significant interval change.
[2017-09-10 14:28] LABS: Albumin 2.5 g/dL (3.5-5.0); Calcium 7.3 mg/dL (8.4-10.2); Magnesium 1.6 mg/dL (1.6-2.3); Potassium 4.8 mmol/L (3.5-5.1); Total Bilirubin 0.2 mg/dL (0.2-1.3)
[2017-09-10 14:36] LABS: Anisocytosis Slight; MCHC 33.3 g/dL (31.0-37.0); MCV 90.1 fL (80.0-100.0); Mean Platelet Volume 13.3; RBC 2.02 m/uL (3.80-5.40); RDW 17.5 % (11.5-15.5)
[2017-09-10 14:47] LABS: WBC 0.7 k/uL (3.8-10.6)
[2017-09-10 14:49] LABS: HCT 18.2 % (34.0-46.0)
[2017-09-10 15:08] LABS: Appearance,Urine Cloudy (Clear); Color,Urine Light Yellow; Glucose,Urine (UA) Negative (Negative); Ketones,Urine Negative (Negative); PH, Urine 5.5 (5.0-8.0); Protein,Urine 2+ (Negative); Specific Gravity,Urine 1.011 (1.001-1.035)
[2017-09-10 15:09] LABS: Bacteria,Urine Occasional /hpf; Bilirubin,Urine Negative (Negative); Blood,Urine Negative (Negative); Leukocyte Esterase,Urine Large (Negative); Mucus,Urine Rare /hpf; Nitrite,Urine Negative (Negative); RBC,Urine 8 /hpf (0-5); Squamous Epithelial Cell,Urine 1 /hpf (0-4); Urobilinogen,Urine <2.0 mg/dL (<2.0); WBC,Urine 85 /hpf (0-5)
[2017-09-10 15:34] LABS: Platelet Count 23 k/uL (150-450)
[2017-09-10 15:35] LABS: Polychromasia Present
[2017-09-10 15:36] LABS: Large Platelets Present
[2017-09-10] MEDS ORDERED: NALOXONE 0.4 MG/ML 1 ML VIAL IV PRN (15:48)
[2017-09-10] MEDS ORDERED: ACETAMINOPHEN TAB 500 MG TAB PO PRN (15:53)
[2017-09-10] MEDS ORDERED: NYSTATIN 100,000 UNIT/GM POWD 15 GM TOPICAL PRN (15:53)
[2017-09-10] MEDS ORDERED: IPRATROPIUM-ALBUTEROL 3 ML NEB INHALATION PRN (15:53)
[2017-09-10] MEDS ORDERED: CEFEPIME 2 GM in SODIUM CHLORIDE 0.9% 50 ML IVPB STA (15:56)
[2017-09-10] MEDS: ACETAMINOPHEN TAB 325 MG TAB PO PRN (17:49)
[2017-09-10] MEDS: ALPRAZolam 1 MG TAB PO PRN (17:50)
[2017-09-10] MEDS ORDERED: IBUPROFEN 600 MG TAB PO STA (18:55)
[2017-09-10] MEDS ORDERED: SODIUM CHLORIDE 0.9% 1,000 ML IV SCH (20:45)
--- NOTE | 2017-09-10 21:25 | HP ---
HISTORY AND PHYSICAL DATE OF SERVICE: 09/10/2017 I am covering for Dr. Cardenas CHIEF COMPLAINTS: Hypotension and dehydration. HISTORY OF PRESENT ILLNESS: This 76-year-old woman with a past medical history of multiple medical problems including multiple myeloma, weakness, was recently admitted to [facility] and Dr. Cardenas recommended ECF rehab. After ECF rehab, patient was sent home apparently. At home, the patient was found to have weakness. The patient had some chills and the patient fell over and caught her and the patient was taken to [facility] and admitted for further evaluation and treatment. Patient had multiple myeloma as well as stage 3 kidney disease, also hypotension was noted and the patient was admitted with broad-spectrum IV antibiotics. Patient is currently running some fever. There is no history of headache, loss of consciousness or seizures. The patient is extremely weak at this currently. There is no history of any chest pain, palpitations, hematochezia or melena. The patient also complaining of mucousy bowel movements without much diarrhea and occasional abdominal pain. PAST MEDICAL HISTORY: Of multiple myeloma, history of fibromyalgia, GERD, myocardial infarction, DJD, history of bowel resection. MEDICATIONS: Home medications are: 1. Simvastatin 40 mg q.h.s. 2. Mycostatin 1 application b.i.d. p.r.n. 3. Multivitamins 1 p.o. daily. 4. Remeron 7.5 mg q.h.s. 5. Lopressor 50 mg p.o. b.i.d. 6. Zestril 5 mg p.o. daily. 7. 25 mcg p.o. daily. 8. Prevacid 30 mg p.o. daily. 9. Lactobacillus 2 tablets p.o. b.i.d. 10.Imdur 50 mg p.o. daily. 11.DuoNeb q.4h p.r.n. 12.Lasix 40 mg b.i.d. 13.Iron sulfate 320 mg b.i.d. 14.Aspirin 81 mg q.h.s. 15.Vitamin C 500 mg p.o. daily. 16.Zovirax 200 mg p.o. b.i.d. 17.Tylenol 1000 mg q.6h p.r.n. 18.Xanax 1 mg p.o. t.i.d. p.r.n. ALLERGIES: ARE CODEINE, PENICILLIN, SULFA. FAMILY HISTORY: History of kidney cancer in the family. SOCIAL HISTORY: No history of smoking. No history of alcohol intake. REVIEW OF SYSTEMS: ENT: No diminished vision. No diminished hearing. CARDIOVASCULAR: As mentioned earlier. RESPIRATORY: As mentioned earlier. no dysuria or hematuria. Nervous system: No numbness or weakness. ALLERGY/IMMUNOLOGY: No asthma or hayfever. Musculoskeletal: As mentioned earlier. Hematology/Oncology: No history of anemia. Endocrine: Hypothyroidism. Constitutional: As mentioned earlier. Dermatology: Negative. Rheumatology: Negative. Psychiatric: As mentioned earlier. PHYSICAL EXAMINATION: Alert and oriented x3. Pulse 92, blood pressure 150/70, respiration 16, temperature 100.2, pulse ox 98% on 2 L. HEENT: Conjunctivae normal. Oral mucosa moist: Mucosa dry. Neck is no jugular venous distention. No carotid bruit. No lymph nodes enlargement. Cardiovascular: S1-S2 muffled. Respiratory: Breath sounds diminished in the bases. Bilateral scattered rhonchi and a few crackles also heard. ABDOMEN: Soft. Mild diffuse discomfort on palpation. Legs: No edema, no swelling. NERVOUS SYSTEM: Higher functions as mentioned. Moves all 4 limbs. No focal motor or sensory deficits. Lymphatics: No lymph nodes palpable in the neck, axillae or groin. Skin: No ulcer, rash, bleeding. Joints: No active deforming arthropathy. LABS: WBC 0.7, hemoglobin is 6, and platelet count is a 23. Sodium 130, potassium 4.8 , creatinine is 4.46. UA noted. ASSESSMENT: 1. Pancytopenia and as well as neutropenic sepsis with hypotension with septic shock. 2. Hyponatremia. 3. Increased creatinine with possible chronic kidney disease stage III. Acute on chronic kidney failure. 4. Urinary tract infection. 5. Abdominal pain and mucousy diarrhea, mucositis. 6. History of myocardial infarction, coronary artery disease. 7. History of gastroesophageal reflux disease. 8. Fibromyalgia. 9. Multiple myeloma. 10.Degenerative joint disease. 11.History of hypothyroidism. 12.History of compression fracture. RECOMMENDATION AND DISCUSSION: In this 76 year old woman who presented with multiple complex medical issues, we will monitor the patient closely, continue the current medications, symptomatic treatment, management and I would recommend broad-spectrum IV antibiotics. I would recommend cefepime and vancomycin. Cultures. Infectious disease evaluation. Otherwise, I would also recommend resume the home medications. Nephrology consultation. Guarded prognosis because of multiple complex medical issues. Hematology/Oncology evaluation. The overall prognosis is extremely guarded because of multiple complex medical issues. Further recommendations to follow. A copy of dictation being forwarded to Dr. Cardenas who is the primary physician. MMELSA / FERNANDAN: [id number] / MTDD
[2017-09-10] MEDS: ACYCLOVIR 200 MG CAP PO SCH (22:12)
[2017-09-10] MEDS: ASPIRIN 81 MG PO SCH (22:12)
[2017-09-10] MEDS: ATORVASTATIN 20 MG TAB PO SCH (22:13)
[2017-09-10] MEDS: MIRTAZAPINE 15 MG TAB PO SCH (22:13)
[2017-09-10] MEDS: METOPROLOL TARTRATE 50 MG TAB PO SCH (22:14)
[2017-09-10] MEDS: LACTOBACILLUS ACIDOPH & BULGAR 1 EACH PACKET PO SCH (22:14)
[2017-09-10] MEDS: PANTOPRAZOLE 40 MG/10 ML VIAL IVP SCH (22:36)
[2017-09-11] MEDS ORDERED: FUROSEMIDE 10 MG/ML 2 ML VIAL IV STA (00:59)
[2017-09-11] MEDS: CEFEPIME 2 GM in SODIUM CHLORIDE 0.9% 50 ML IVPB SCH ×2 (01:19→08:09)
[2017-09-11] MEDS: LEVOTHYROXINE 25 MCG TAB PO SCH (06:01)
[2017-09-11 07:28] LABS: Anisocytosis Slight; HCT 29.5 % (34.0-46.0); HGB 9.6 gm/dL (11.4-16.0); MCH 29.5 pg (25.0-35.0); MCHC 32.7 g/dL (31.0-37.0); MCV 90.4 fL (80.0-100.0); RBC 3.27 m/uL (3.80-5.40); RDW 16.1 % (11.5-15.5)
[2017-09-11 07:39] LABS: Platelet Count 24 k/uL (150-450); WBC 1.1 k/uL (3.8-10.6)
[2017-09-11] MEDS: LACTOBACILLUS ACIDOPH & BULGAR 1 EACH PACKET PO SCH ×2 (08:10→19:54)
[2017-09-11] MEDS: METOPROLOL TARTRATE 50 MG TAB PO SCH ×2 (08:10→19:55)
[2017-09-11] MEDS: ISOSORBIDE MONONITRATE ER 15 MG TAB PO SCH (08:10)
[2017-09-11] MEDS: PANTOPRAZOLE 40 MG/10 ML VIAL IVP SCH ×2 (08:10→19:54)
[2017-09-11] MEDS: ACYCLOVIR 200 MG CAP PO SCH ×2 (08:10→19:55)
[2017-09-11 09:00] LABS: Calcium 7.5 mg/dL (8.4-10.2); Magnesium 1.5 mg/dL (1.6-2.3); Potassium 4.8 mmol/L (3.5-5.1)
[2017-09-11 10:16] LABS: Lymphocytes # (M) 0.69 k/uL (1.0-4.8); Monocytes # (M) 0.01 k/uL (0-1.0); Neutrophils % (M) 36 %; Nucleated Red Blood Cells 0 /100 WBC (0-0); Total Cells Counted 100
[2017-09-11 10:19] LABS: Poikilocytosis (M) Present
[2017-09-11] MEDS: DEXTROSE 5% IN WATER 1,000 ML with SODIUM BICARB (1 MEQ/ML) 150 ML IV SCH ×2 (11:24→21:10)
[2017-09-11] MEDS: MULTIVITAMINS, THERA 1 EACH TAB PO SCH (11:24)
[2017-09-11] MEDS: ASCORBIC ACID 500 MG TAB PO SCH (11:24)
--- NOTE | 2017-09-11 12:43 | P.CNPUL ---
History of Present Illness Consult date: 09/11/17 Reason for consult: dyspnea, cough, COPD, pneumonia Chief complaint: Shortness of breath cough not feeling well History of present illness: 76-year-old female with history of multiple myeloma overall a poor historian patient has a Port-A-Cath she is being evaluated for chemotherapy adjustment, patient sees in follow is Dr. Mei for her myeloma, she has not been feeling well for the last 2 days with progressive weakness cough and was brought into emergency department for further evaluation and intervention and treatment, patient brought in by EMS for evaluation of 2 days of increasing weakness she's had chills also today she could not sit up and asked the fell over and was caught by her . It is not whether she passed out or not. She has a history of multiple myeloma also stage III kidney disease. She states she's had no urine output for 2 days she was noted to have significant hypertension last blood pressure check was noted to be 80/40 per EMS. Patient has significant and decreased oral intake. Per report her old blood pressures about 140/90. She does not complain of any particular pain no blurry vision or other symptoms at this time no other modifying factors she has had previous treatments for the multiple myeloma. Laboratory data suggestive of worsening of renal failure and significant metabolic acidosis likely related related to renal failure, patient has found to have significant pancytopenia and thrombocytopenia and neutropenia and cultures have been obtained, patient has been initiated on broad-spectrum antibiotics in the form cefepime Review of Systems All systems: negative Past Medical History Past Medical History: Cancer, Fibromyalgia, GERD/Reflux, Myocardial Infarction ( [place]), Osteoarthritis (OA), Pneumonia, Thyroid Disorder Additional Past Medical History / Comment(s): MULTIPLE MYLEMOMA STAGE 3, COMPRESSION FRACTURES. [place] - April Last Myocardial Infarction Date:: 05-24-2017 History of Any Multi-Drug Resistant Organisms: None Reported Past Surgical History: Bowel Resection, Heart Catheterization, Hysterectomy Additional Past Surgical History / Comment(s): cystocele,rectocele, rt upper chest power port Past Anesthesia/Blood Transfusion Reactions: Postoperative Nausea & Vomiting ( PONV) Additional Past Anesthesia/Blood Transfusion Reaction / Comment(s): pt states PONV only with general anesthesia. Pt. states she had [place] on 05-24-18 while getting blood transfusion; pt. states she also had just started a new chemo medication which has since been discontinued Past Psychological History: No Psychological Hx Reported Additional Psychological History / Comment(s): pt is but currently at [facility] for rehab. uses [employer] working w. 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 Smoking Status: Never smoker Past Alcohol Use History: None Reported Additional Past Alcohol Use History / Comment(s): Patient states she's never been a smoker, no medical marijuana or marijuana use, no alcohol use. patient is currently living at [facility] for rehab . Past Drug Use History: None Reported - Past Family History Father Family Medical History: Cancer Additional Family Medical History / Comment(s): KIDNEY CANCER Mother Family Medical History: Myocardial Infarction ([place]) Medications and Allergies Home Medications Medication Instructions Recorded Confirmed Type Acetaminophen Tab [Tylenol] 1,000 mg PO Q6H PRN 01/04/14 09/10/17 History Levothyroxine Sodium [Levoxyl] 25 mcg PO DAILY 01/04/14 09/10/17 History Lactobacillus Acidophilus 2 tab PO BID 11/14/15 09/10/17 History [Acidophilus] Aspirin 81 mg PO HS 09/05/16 09/10/17 History Mirtazapine [Remeron] 7.5 mg PO HS 09/05/16 09/10/17 History Ascorbic Acid [Vitamin C] 500 mg PO DAILY 06/26/17 09/10/17 History Isosorbide Mononitrate [Isosorbide 15 mg PO DAILY 06/26/17 09/10/17 History Mononitrate ER] Lisinopril [Zestril] 5 mg PO DAILY@1200 06/26/17 09/10/17 History Ipratropium-Albuterol Nebulize 3 ml INHALATION RT-Q4H PRN 07/10/17 09/10/17 Rx [Duoneb 0.5 mg-3 mg/3 ml Soln] ampul.neb Metoprolol Tartrate [Lopressor] 50 mg PO BID tab 07/10/17 09/10/17 Rx Acyclovir [Zovirax] 200 mg PO BID 07/21/17 09/10/17 History Multivits,Th W-Ca,Fe,Oth Min 1 tab PO DAILY 07/21/17 09/10/17 History [Therapeutic M] ALPRAZolam [Xanax] 1 mg PO TID PRN 09/10/17 09/10/17 History Ferrous Sulfate [Feosol] 325 mg PO DAILY@1200 09/10/17 09/10/17 History Furosemide [Lasix] 40 mg PO DAILY@1200 09/10/17 09/10/17 History Lansoprazole [Prevacid] 30 mg PO DAILY 09/10/17 09/10/17 History Nystatin 100,000 Unit/gm Powd 1 applic TOPICAL BID PRN 09/10/17 09/10/17 History [Mycostatin Powder] Simvastatin 40 mg PO HS 09/10/17 09/10/17 History Allergies Allergy/AdvReac Type Severity Reaction Status Date / Time codeine Allergy Rapid Verified 09/10/17 13:24 Heart Rate Penicillins Allergy Rash/Hives Verified 09/10/17 13:24 Sulfa (Sulfonamide Allergy Dyspnea Verified 09/10/17 13:24 Antibiotics) Physical Exam Vitals: Vital Signs Temp Pulse Pulse Resp BP BP BP 09/11/17 11:43 97.8 F 79 16 138/72 09/11/17 07:53 97.3 F L 84 16 158/71 09/11/17 05:16 96.4 F L 64 18 165/75 09/11/17 04:00 96.4 F L 78 18 98/54 09/11/17 03:15 96.4 F L 78 18 98/54 09/11/17 02:45 97.1 F L 76 18 107/55 09/11/17 02:35 96.4 F L 77 18 122/58 09/11/17 01:13 96.6 F L 78 18 120/58 09/11/17 00:00 96.9 F L 78 18 120/58 09/10/17 23:19 97.1 F L 09/10/17 22:28 97.6 F 88 18 99/51 09/10/17 21:58 99.2 F 85 19 84/46 09/10/17 21:48 99.6 F 87 17 83/47 09/10/17 20:00 100.1 F H 95 19 135/61 09/10/17 19:13 100.2 F H 92 155/71 09/10/17 17:53 98.5 F 82 16 135/72 09/10/17 16:55 100.2 F H 155/71 09/10/17 16:03 98.3 F 76 16 139/61 09/10/17 15:30 77 16 124/59 09/10/17 14:55 97.6 F 75 18 121/60 09/10/17 12:33 99.4 F 78 18 97/51 Pulse Ox 09/11/17 11:43 94 L 09/11/17 07:53 98 09/11/17 05:16 94 L 09/11/17 04:00 100 09/11/17 03:15 100 09/11/17 02:45 100 09/11/17 02:35 100 09/11/17 01:13 100 09/11/17 00:00 100 09/10/17 23:19 09/10/17 22:28 99 09/10/17 21:58 90 L 09/10/17 21:48 98 09/10/17 20:00 100 09/10/17 19:13 98 09/10/17 17:53 98 09/10/17 16:55 98 09/10/17 16:03 97 09/10/17 15:30 100 09/10/17 14:55 98 09/10/17 12:33 95 Intake and Output 09/10/17 09/11/17 09/11/17 22:59 06:59 14:59 Intake Total 0 720 200 Output Total 250 Balance 0 720 -50 Intake: Intake, IV Titration 100 200 Amount Cefepime 2 gm In Sodium 100 Chloride 0.9% 50 ml @ 100 mls/hr IVPB Q8HR N[facility]AL[facility] Rx# :[id number] Sodium Chloride 0.9% 1, 200 000 ml @ 50 mls/hr IV . Q20H NATHALY Rx#:[id number] Blood Product 0 620 Rc As-1 Unit 310 [id number] Rc As-3 Unit 0 310 [id number] Output: Urine 250 Other: Voiding Method Bedpan Bedpan Bedpan # Voids 1 # Bowel Movements 1 Weight 59.874 kg 61.5 kg 61.5 kg This is a well-developed well-nourished awake alert oriented 3 female Limitations: no limitations General appearance: alert, but lethargic Head exam: Present: atraumatic, normocephalic, normal inspection Eye exam: normal appearance, PERRL, EOMI. no evidence of scleral icterus, conjunctival injection, periorbital swelling ENT exam: mucous membranes dry Neck exam: normal inspection. No evidence of jugular venous distention carotid bruit, tenderness, meningismus, lymphadenopathy Respiratory exam: Noted to have bilateral normal lung sounds bilaterally. No evidence of respiratory distress, wheezes, rales, rhonchi, stridor, Port-A-Cath in anterior thoracic wall left side is intact Cardiovascular Exam: Present: regular rate, normal rhythm, normal heart sounds. Absent: systolic murmur, diastolic murmur, rubs, gallop, clicks GI/Abdominal exam: Present: soft, normal bowel sounds. No evidence of distended , tenderness, guarding, rebound, rigid Extremities exam: Present: normal inspection, full ROM, normal capillary refill. No evidence of tenderness, pedal edema, joint swelling, calf tenderness Neurological exam: Present: alert, oriented X3, CN II-XII intact, no focal neurological deficit within normal limits except some lethargy Psychiatric exam: Present: normal affect, normal mood Skin exam: Present: warm, dry, intact, normal color. Absent: rash Results - Laboratory Findings CBC and BMP: 09/11/17 06:56 09/11/17 06:56 Abnormal lab findings: Abnormal Labs 09/10/17 09/10/17 09/10/17 13:54 13:54 13:54 WBC 0.7 L* RBC 2.02 L Hgb 6.0 L* Hct 18.2 L* RDW 17.5 H Plt Count 23 L* Neutrophils # (Manual) Lymphocytes # (Manual) Sodium 135 L Chloride 111 H Carbon Dioxide 14 L BUN 61 H Creatinine 4.46 H Plasma Lactic Acid Sg <0.5 L Calcium 7.3 L Magnesium Total Creatine Kinase Total Protein 5.6 L Albumin 2.5 L Urine Appearance Urine Protein Ur Leukocyte Esterase Urine RBC Urine WBC Urine Bacteria Urine Mucus Crossmatch 09/10/17 09/10/17 09/10/17 13:54 14:00 14:50 WBC RBC Hgb Hct RDW Plt Count Neutrophils # (Manual) Lymphocytes # (Manual) Sodium Chloride Carbon Dioxide BUN Creatinine Plasma Lactic Acid Sg Calcium Magnesium Total Creatine Kinase 27 L Total Protein Albumin Urine Appearance Cloudy H Urine Protein 2+ H Ur Leukocyte Esterase Large H Urine RBC 8 H Urine WBC 85 H Urine Bacteria Occasional H Urine Mucus Rare H Crossmatch See Detail 09/10/17 09/11/17 09/11/17 21:00 06:56 06:56 WBC 1.1 L* RBC 3.27 L Hgb 9.6 L D Hct 29.5 L RDW 16.1 H Plt Count 24 L* Neutrophils # (Manual) 0.40 L Lymphocytes # (Manual) 0.69 L Sodium Chloride 113 H Carbon Dioxide 7 L* BUN 60 H Creatinine 4.41 H Plasma Lactic Acid Sg <0.5 L Calcium 7.5 L Magnesium 1.5 L Total Creatine Kinase Total Protein Albumin Urine Appearance Urine Protein Ur Leukocyte Esterase Urine RBC Urine WBC Urine Bacteria Urine Mucus Crossmatch - Diagnostic Findings Chest x-ray: report reviewed, image reviewed (Patient noted to have [place] lesion suggestive of multiple myeloma basal subsegmental atelectasis bilaterally noted along with significant kyphosis) Assessment and Plan Assessment: Sepsis, source is not clear may very well be urinary tract infection medrano cultures have been obtained Advanced multiple myeloma Severe pancytopenia including thrombocytopenia anemia and leukopenia/neutropenia Acute renal failure stage IV with worsening from baseline Baseline COPD Plan: Gentle rehydration Broad-spectrum antibiotics Monitor labs closely Hemoglobin improved post blood transfusion Continue bronchodilator Follow-up on culture results and report Continue deep breathing sense incentive spirometry Further recommendations pending plan of care as per clinical response of the patient Time with Patient: Greater than 30
--- NOTE | 2017-09-11 12:51 | P.NPCON ---
History of Present Illness - Reason for Consult acute renal failure - History of Present Illness Reason for consultation: Acute kidney injury History of present illness: Patient is a 76-year-old female seen in consultation for acute kidney injury. Her creatinine on admission was 4.46 and is 4.41 today. Patient's creatinine June 2017 was in the range of 0.67-2.8. Patient was admitted in May 2017 with pneumonia. She also has history of multiple myeloma for which she has not been able to achieve remission despite being on chemotherapy. Patient states her last chemotherapy was in March 2017. Patient presented to the hospital with generalized weakness. She was having nausea and vomiting. Her blood pressure was in the systolic 80s. She felt extremely weak and came to the hospital. Her hemoglobin was noted to be 6 for which she did receive 2 units of blood transfusion. Hemoglobin is up to 9.6 today. She is also noted to be extremely acidotic with a bicarb level of 7 and is maintained on a bicarbonate drip. Her urine output was low prior to admission but has picked up now. She is overall feeling better. She is tolerating oral intake. Denies hematuria. She is maintained on broad-spectrum antibiotics. Cultures are pending. Hypotension has resolved. She denies use of NSAIDs. Vital signs are stable. General: The patient appeared well nourished and normally developed. HEENT: Head exam is unremarkable. Neck is without jugular venous distension. LUNGS: Lungs are clear to auscultation and percussion. Breath sounds decreased. HEART: Rate and Rhythm are regular. First and second heart sounds normal. No murmurs, rubs or gallops. ABDOMEN: Abdominal exam reveals normal bowel sounds. Non-tender and non- distended. No evidence of peritonitis. EXTREMITITES: No clubbing, cyanosis, or edema. Past Medical History Past Medical History: Cancer, Fibromyalgia, GERD/Reflux, Myocardial Infarction ( [place]), Osteoarthritis (OA), Pneumonia, Thyroid Disorder Additional Past Medical History / Comment(s): MULTIPLE MYLEMOMA STAGE 3, COMPRESSION FRACTURES. [place] - April Last Myocardial Infarction Date:: 05-24-2017 History of Any Multi-Drug Resistant Organisms: None Reported Past Surgical History: Bowel Resection, Heart Catheterization, Hysterectomy Additional Past Surgical History / Comment(s): cystocele,rectocele, rt upper chest power port Past Anesthesia/Blood Transfusion Reactions: Postoperative Nausea & Vomiting ( PONV) Additional Past Anesthesia/Blood Transfusion Reaction / Comment(s): pt states PONV only with general anesthesia. Pt. states she had [place] on 05-24-18 while getting blood transfusion; pt. states she also had just started a new chemo medication which has since been discontinued Past Psychological History: No Psychological Hx Reported Additional Psychological History / Comment(s): pt is but currently at [facility] for rehab. uses [employer] working w. 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 Smoking Status: Never smoker Past Alcohol Use History: None Reported Additional Past Alcohol Use History / Comment(s): Patient states she's never been a smoker, no medical marijuana or marijuana use, no alcohol use. patient is currently living at [facility] for rehab . Past Drug Use History: None Reported - Past Family History Father Family Medical History: Cancer Additional Family Medical History / Comment(s): KIDNEY CANCER Mother Family Medical History: Myocardial Infarction ([place]) Medications and Allergies Home Medications Medication Instructions Recorded Confirmed Type Acetaminophen Tab [Tylenol] 1,000 mg PO Q6H PRN 01/04/14 09/10/17 History Levothyroxine Sodium [Levoxyl] 25 mcg PO DAILY 01/04/14 09/10/17 History Lactobacillus Acidophilus 2 tab PO BID 11/14/15 09/10/17 History [Acidophilus] Aspirin 81 mg PO HS 09/05/16 09/10/17 History Mirtazapine [Remeron] 7.5 mg PO HS 09/05/16 09/10/17 History Ascorbic Acid [Vitamin C] 500 mg PO DAILY 06/26/17 09/10/17 History Isosorbide Mononitrate [Isosorbide 15 mg PO DAILY 06/26/17 09/10/17 History Mononitrate ER] Lisinopril [Zestril] 5 mg PO DAILY@1200 06/26/17 09/10/17 History Ipratropium-Albuterol Nebulize 3 ml INHALATION RT-Q4H PRN 07/10/17 09/10/17 Rx [Duoneb 0.5 mg-3 mg/3 ml Soln] ampul.neb Metoprolol Tartrate [Lopressor] 50 mg PO BID tab 07/10/17 09/10/17 Rx Acyclovir [Zovirax] 200 mg PO BID 07/21/17 09/10/17 History Multivits,Th W-Ca,Fe,Oth Min 1 tab PO DAILY 07/21/17 09/10/17 History [Therapeutic M] ALPRAZolam [Xanax] 1 mg PO TID PRN 09/10/17 09/10/17 History Ferrous Sulfate [Feosol] 325 mg PO DAILY@1200 09/10/17 09/10/17 History Furosemide [Lasix] 40 mg PO DAILY@1200 09/10/17 09/10/17 History Lansoprazole [Prevacid] 30 mg PO DAILY 09/10/17 09/10/17 History Nystatin 100,000 Unit/gm Powd 1 applic TOPICAL BID PRN 09/10/17 09/10/17 History [Mycostatin Powder] Simvastatin 40 mg PO HS 09/10/17 09/10/17 History Allergies Allergy/AdvReac Type Severity Reaction Status Date / Time codeine Allergy Rapid Verified 09/10/17 13:24 Heart Rate Penicillins Allergy Rash/Hives Verified 09/10/17 13:24 Sulfa (Sulfonamide Allergy Dyspnea Verified 09/10/17 13:24 Antibiotics) Physical Exam Vitals: Vital Signs Temp Pulse Pulse Resp BP BP BP 09/11/17 11:43 97.8 F 79 16 138/72 09/11/17 07:53 97.3 F L 84 16 158/71 09/11/17 05:16 96.4 F L 64 18 165/75 09/11/17 04:00 96.4 F L 78 18 98/54 09/11/17 03:15 96.4 F L 78 18 98/54 09/11/17 02:45 97.1 F L 76 18 107/55 09/11/17 02:35 96.4 F L 77 18 122/58 09/11/17 01:13 96.6 F L 78 18 120/58 09/11/17 00:00 96.9 F L 78 18 120/58 09/10/17 23:19 97.1 F L 09/10/17 22:28 97.6 F 88 18 99/51 09/10/17 21:58 99.2 F 85 19 84/46 09/10/17 21:48 99.6 F 87 17 83/47 09/10/17 20:00 100.1 F H 95 19 135/61 09/10/17 19:13 100.2 F H 92 155/71 09/10/17 17:53 98.5 F 82 16 135/72 09/10/17 16:55 100.2 F H 155/71 09/10/17 16:03 98.3 F 76 16 139/61 09/10/17 15:30 77 16 124/59 09/10/17 14:55 97.6 F 75 18 121/60 Pulse Ox 09/11/17 11:43 94 L 09/11/17 07:53 98 09/11/17 05:16 94 L 09/11/17 04:00 100 09/11/17 03:15 100 09/11/17 02:45 100 09/11/17 02:35 100 09/11/17 01:13 100 09/11/17 00:00 100 09/10/17 23:19 09/10/17 22:28 99 09/10/17 21:58 90 L 09/10/17 21:48 98 09/10/17 20:00 100 09/10/17 19:13 98 09/10/17 17:53 98 09/10/17 16:55 98 09/10/17 16:03 97 09/10/17 15:30 100 09/10/17 14:55 98 Intake and Output 09/10/17 09/11/17 09/11/17 22:59 06:59 14:59 Intake Total 0 720 200 Output Total 250 Balance 0 720 -50 Intake: Intake, IV Titration 100 200 Amount Cefepime 2 gm In Sodium 100 Chloride 0.9% 50 ml @ 100 mls/hr IVPB Q8HR [facility] Rx# :[id number] Sodium Chloride 0.9% 1, 200 000 ml @ 50 mls/hr IV . Q20H [facility]AL[facility] Rx#:[id number] Blood Product 0 620 Rc As-1 Unit 310 [id number] Rc As-3 Unit 0 310 [id number] Output: Urine 250 Other: Voiding Method Bedpan Bedpan Bedpan # Voids 1 # Bowel Movements 1 Weight 59.874 kg 61.5 kg 61.5 kg Results - Lab Results Most recent lab results Calcium 7.5 mg/dL (8.4-10.2) L 09/11/17 06:56 Magnesium 1.5 mg/dL (1.6-2.3) L 09/11/17 06:56 09/11/17 06:56 09/11/17 06:56 Assessment and Plan Plan: Assessment: #1. Nonoliguric acute kidney injury secondary to ischemic ATN secondary to hypotension and anemia. Creatinine 4.46 on admission and 4.41 today. #2. Multiple myeloma diagnosed in 2011. Oncology following. #3. Anion gap metabolic acidosis secondary to acute kidney injury. #4. Pancytopenia likely related to underlying monoclonal disease. Status post 2 units of blood transfusion. #5. Hypomagnesemia related to poor oral intake. #6. Chronic kidney disease. Her creatinine June 2017 was in the range of 0.67-2.8. Etiology is myeloma kidney. #7. Pyuria. Urine culture pending. #8. Neutropenic sepsis maintained on broad-spectrum antibiotics. Plan: Maintain isotonic sodium bicarbonate drip to be run at 75 mL an hour. Replace magnesium. 2 g IV today. Encourage oral intake. Avoid nephrotoxic agents and hypotensive episodes. Follow-up cultures. Monitor hemoglobin and transfuse as needed. Continue to monitor renal function and urine output. No urgent need for renal replacement therapy at this time. Thank you for the consultation. I will continue to follow the patient with you during her hospital stay.
[2017-09-11] MEDS: MAGNESIUM SULFATE-D5W PMX 1 GM in DEXTROSE/WATER 1 100ML.BAG IVPB SCH ×2 (13:22→14:16)
--- NOTE | 2017-09-11 16:18 | P.CONS ---
History of Present Illness - Reason for Consult Consult date: 09/11/17 Multiple Myeloma Requesting physician: Miguel Palacios - Chief Complaint Inability to Urinate and Dizziness - History of Present Illness Malignancy history: Pt diagnosed with IgG kappa multiple myeloma July 2011, which was discovered on evaluation of anemia, bone marrow showed 75% involvement at that time with multiple cytogenetic abnormalities including 17P deletion. Pt has received multiple treatment regimens and treatment holidays over the years, she has received newer agents including Pomalyst, kyprolis and darzalex. In May 2017 pt had unfortunate progression of disease with increased M protein as well as progressive pancytopenia from MM, she was hospitalized with pneumonia earlier this month and was participating in rehab so she could get her strength up to start elotuzumab Revlimid and decadron and cont zometa. She was recently admitted with a hemoglobin of 5.1. Since this admission she has been trying to increase her performance status and strength although she now presents after having inability to urinate for two days, a syncopal episode , increased fatigue and dizziness. On admission she was hypotensive and hemoglobin of 6. She is feeling better, no fevers in the past week she still would like to try next line therapy with Venclexta Review of Systems A 14 point review of systems assessed and completed and all neg except HPI. Past Medical History Past Medical History: Cancer, Fibromyalgia, GERD/Reflux, Myocardial Infarction ( NV), Osteoarthritis (OA), Pneumonia, Thyroid Disorder Additional Past Medical History / Comment(s): MULTIPLE MYLEMOMA STAGE 3, COMPRESSION FRACTURES. NV - April Last Myocardial Infarction Date:: 05-24-2017 History of Any Multi-Drug Resistant Organisms: None Reported Past Surgical History: Bowel Resection, Heart Catheterization, Hysterectomy Additional Past Surgical History / Comment(s): cystocele,rectocele, rt upper chest power port Past Anesthesia/Blood Transfusion Reactions: Postoperative Nausea & Vomiting ( PONV) Additional Past Anesthesia/Blood Transfusion Reaction / Comm: pt states PONV only with general anesthesia. Pt. states she had NV on 05-24-18 while getting blood transfusion; pt. states she also had just started a new chemo medication which has since been discontinued Past Psychological History: No Psychological Hx Reported Additional Psychological History / Comment(s): pt is but currently at [facility] for rehab. uses [employer] working w. 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 Smoking Status: Never smoker Past Alcohol Use History: None Reported Additional Past Alcohol Use History / Comment(s): Patient states she's never been a smoker, no medical marijuana or marijuana use, no alcohol use. patient is currently living at [facility] for rehab . Past Drug Use History: None Reported - Past Family History Father Family Medical History: Cancer Additional Family Medical History / Comment(s): KIDNEY CANCER Mother Family Medical History: Myocardial Infarction (NV) Medications and Allergies Home Medications Medication Instructions Recorded Confirmed Type Acetaminophen Tab [Tylenol] 1,000 mg PO Q6H PRN 01/04/14 09/10/17 History Levothyroxine Sodium [Levoxyl] 25 mcg PO DAILY 01/04/14 09/10/17 History Lactobacillus Acidophilus 2 tab PO BID 11/14/15 09/10/17 History [Acidophilus] Aspirin 81 mg PO HS 09/05/16 09/10/17 History Mirtazapine [Remeron] 7.5 mg PO HS 09/05/16 09/10/17 History Ascorbic Acid [Vitamin C] 500 mg PO DAILY 06/26/17 09/10/17 History Isosorbide Mononitrate [Isosorbide 15 mg PO DAILY 06/26/17 09/10/17 History Mononitrate ER] Lisinopril [Zestril] 5 mg PO DAILY@1200 06/26/17 09/10/17 History Ipratropium-Albuterol Nebulize 3 ml INHALATION RT-Q4H PRN 07/10/17 09/10/17 Rx [Duoneb 0.5 mg-3 mg/3 ml Soln] ampul.neb Metoprolol Tartrate [Lopressor] 50 mg PO BID tab 07/10/17 09/10/17 Rx Acyclovir [Zovirax] 200 mg PO BID 07/21/17 09/10/17 History Multivits,Th W-Ca,Fe,Oth Min 1 tab PO DAILY 07/21/17 09/10/17 History [Therapeutic M] ALPRAZolam [Xanax] 1 mg PO TID PRN 09/10/17 09/10/17 History Ferrous Sulfate [Feosol] 325 mg PO DAILY@1200 09/10/17 09/10/17 History Furosemide [Lasix] 40 mg PO DAILY@1200 09/10/17 09/10/17 History Lansoprazole [Prevacid] 30 mg PO DAILY 09/10/17 09/10/17 History Nystatin 100,000 Unit/gm Powd 1 applic TOPICAL BID PRN 09/10/17 09/10/17 History [Mycostatin Powder] Simvastatin 40 mg PO HS 09/10/17 09/10/17 History Allergies Allergy/AdvReac Type Severity Reaction Status Date / Time codeine Allergy Rapid Verified 09/10/17 13:24 Heart Rate Penicillins Allergy Rash/Hives Verified 09/10/17 13:24 Sulfa (Sulfonamide Allergy Dyspnea Verified 09/10/17 13:24 Antibiotics) Physical Exam Vitals: Vital Signs Temp Pulse Pulse Resp BP BP BP 09/11/17 11:43 97.8 F 79 16 138/72 09/11/17 07:53 97.3 F L 84 16 158/71 09/11/17 05:16 96.4 F L 64 18 165/75 09/11/17 04:00 96.4 F L 78 18 98/54 09/11/17 03:15 96.4 F L 78 18 98/54 09/11/17 02:45 97.1 F L 76 18 107/55 09/11/17 02:35 96.4 F L 77 18 122/58 09/11/17 01:13 96.6 F L 78 18 120/58 09/11/17 00:00 96.9 F L 78 18 120/58 09/10/17 23:19 97.1 F L 09/10/17 22:28 97.6 F 88 18 99/51 09/10/17 21:58 99.2 F 85 19 84/46 09/10/17 21:48 99.6 F 87 17 83/47 09/10/17 20:00 100.1 F H 95 19 135/61 09/10/17 19:13 100.2 F H 92 155/71 09/10/17 17:53 98.5 F 82 16 135/72 09/10/17 16:55 100.2 F H 155/71 09/10/17 16:03 98.3 F 76 16 139/61 09/10/17 15:30 77 16 124/59 Pulse Ox 09/11/17 11:43 94 L 09/11/17 07:53 98 09/11/17 05:16 94 L 09/11/17 04:00 100 09/11/17 03:15 100 09/11/17 02:45 100 09/11/17 02:35 100 09/11/17 01:13 100 09/11/17 00:00 100 09/10/17 23:19 09/10/17 22:28 99 09/10/17 21:58 90 L 09/10/17 21:48 98 09/10/17 20:00 100 09/10/17 19:13 98 09/10/17 17:53 98 09/10/17 16:55 98 09/10/17 16:03 97 09/10/17 15:30 100 Intake and Output 09/11/17 09/11/17 09/11/17 06:59 14:59 22:59 Intake Total 720 350 Output Total 250 Balance 720 100 Intake: Intake, IV Titration 100 200 Amount Cefepime 2 gm In Sodium 100 Chloride 0.9% 50 ml @ 100 mls/hr IVPB Q8HR NATHALY Rx# :[id number] Sodium Chloride 0.9% 1, 200 000 ml @ 50 mls/hr IV . Q20H NATHALY Rx#:[id number] Oral 150 Blood Product 620 Rc As-1 Unit 310 [id number] Rc As-3 Unit 310 [id number] Output: Urine 250 Other: Voiding Method Bedpan Bedpan # Voids 1 # Bowel Movements 1 Weight 61.5 kg 61.5 kg - Constitutional General appearance: average body habitus, no acute distress - EENT Eyes: EOMI, PERRLA, dentition normal ENT: hard of hearing, NA/AT, normal oropharynx - Neck Neck: normal ROM - Respiratory Respiratory: bilateral: CTA - Cardiovascular Rhythm: regular - Gastrointestinal General gastrointestinal: normal bowel sounds, soft - Integumentary Integumentary: pale - Neurologic Neurologic: CNII-XII intact - Musculoskeletal Musculoskeletal: generalized weakness, strength equal bilaterally - Psychiatric Psychiatric: A&O x's 3, appropriate affect, intact judgment & insight Results CBC & Chem 7: 09/11/17 06:56 09/11/17 06:56 Labs: Abnormal Lab Results - Last 24 Hours (Table) 09/10/17 09/10/17 09/10/17 Range/Units 13:54 14:00 21:00 WBC (3.8-10.6) k/uL RBC (3.80-5.40) m/uL Hgb (11.4-16.0) gm/dL Hct (34.0-46.0) % RDW (11.5-15.5) % Plt Count 23 L* (150-450) k/uL Neutrophils # (Manual) (1.3-7.7) k/uL Lymphocytes # (Manual) (1.0-4.8) k/uL Chloride (98-107) mmol/L Carbon Dioxide (22-30) mmol/L BUN (7-17) mg/dL Creatinine (0.52-1.04) mg/dL Plasma Lactic Acid Sg <0.5 L (0.7-2.0) mmol/L Calcium (8.4-10.2) mg/dL Magnesium (1.6-2.3) mg/dL Crossmatch See Detail 09/11/17 09/11/17 Range/Units 06:56 06:56 WBC 1.1 L* (3.8-10.6) k/uL RBC 3.27 L (3.80-5.40) m/uL Hgb 9.6 L D (11.4-16.0) gm/dL Hct 29.5 L (34.0-46.0) % RDW 16.1 H (11.5-15.5) % Plt Count 24 L* (150-450) k/uL Neutrophils # (Manual) 0.40 L (1.3-7.7) k/uL Lymphocytes # (Manual) 0.69 L (1.0-4.8) k/uL Chloride 113 H (98-107) mmol/L Carbon Dioxide 7 L* (22-30) mmol/L BUN 60 H (7-17) mg/dL Creatinine 4.41 H (0.52-1.04) mg/dL Plasma Lactic Acid Sg (0.7-2.0) mmol/L Calcium 7.5 L (8.4-10.2) mg/dL Magnesium 1.5 L (1.6-2.3) mg/dL Crossmatch Assessment and Plan (1) Acute renal failure Current Visit: Yes Status: Acute Code(s): N17.9 - ACUTE KIDNEY FAILURE, UNSPECIFIED SNOMED Code(s): 68563615 (2) Multiple myeloma Current Visit: Yes Status: Chronic Priority: High Code(s): C90.00 - MULTIPLE MYELOMA NOT HAVING ACHIEVED REMISSION SNOMED Code(s): 364279891 (3) Weakness Current Visit: No Status: Acute Priority: High Code(s): R53.1 - WEAKNESS SNOMED Code(s): 92951498 (4) Pancytopenia Current Visit: No Status: Chronic Priority: Medium Code(s): D61.818 - OTHER PANCYTOPENIA SNOMED Code(s): 479420403 Plan: Assessment and Recommendations: 1. Multiple Myeloma - Plan to start next line therapy with Venclexta as outpatient. Follow-up with Dr. Sher after Discharge. 2. Symptomatic Anemia - Secondary to Renal failure and Multiple Myeloma - Supportive Transfusions under 7 - Monitor closely as outpatient - Daily CBC 3. Acute/Chronic Renal Failure - Nephrology Following Physician Attestation: I have completed the full history and physical on this patient and discussed and agree with above dictation by Delilah Dodge NP. Dictated as a scribe.
--- NOTE | 2017-09-11 18:20 | P.PN ---
Subjective Progress Note Date: 09/11/17 Progress note being dictated for Dr. Suazo. Interval history: This is a 76-year-old female admitted with pancytopenia, neutropenic sepsis, hypotension, septic shock, hyponatremia, renal failure and multiple other medical issues. Maintained on IV antibiotics as per ID. received 2 units of packed RBCs yesterday with current hemoglobin up to 9.6. Systolic blood pressures and urine output improved. Feeling better, ambulating in hallway, tolerating exertion well. Fair diet Intake. Acidotic, bicarb 7, bicarb drip initiated. Objective - Vital Signs Vital signs: Vital Signs Temp 97.8 F 09/11/17 11:43 Pulse 91 09/11/17 16:00 Resp 16 09/11/17 16:00 BP 162/76 09/11/17 16:00 Pulse Ox 94 L 09/11/17 16:00 Intake & Output 09/10/17 09/11/17 09/11/17 18:59 06:59 18:59 Intake Total 720 350 Output Total 500 Balance 720 -150 Weight 59.874 kg 61.5 kg 61.5 kg Intake: Intake, IV Titration 100 200 Amount Cefepime 2 gm In Sodium 100 Chloride 0.9% 50 ml @ 100 mls/hr IVPB Q8HR NATHALY Rx# :[id number] Sodium Chloride 0.9% 1, 200 000 ml @ 50 mls/hr IV . Q20H NATHALY Rx#:[id number] Oral 150 Blood Product 620 Rc As-1 Unit 310 [id number] Rc As-3 Unit 310 [id number] Output: Urine 500 Other: Voiding Method Bedpan Bedpan # Voids 1 # Bowel Movements 1 - Exam PHYSICAL EXAM: VITAL SIGNS: As above GENERAL: Sitting up in bed, no acute distress HEENT: Conjunctivae normal. eyes normal. Oral mucosa moist NECK: No JVD. No thyroid enlargement. No LNs CARDIOVASCULAR: S1, S2 muffled. No murmur RESPIRATION: Breath sounds diminished in the bases. Bilateral scattered rhonchi , occasional fine basilar fine crackles. No bronchial breathing. ABDOMEN: Soft, mild diffuse discomfort. No guarding. no masses palpable.Bowel sounds heard. LEGS: No edema. no swelling PSYCHIATRY: Alert and oriented -3, mood and affect normal. NERVOUS SYSTEM: Cranial N 2-12 grossly normal. Moves all 4 limbs. Diffuse weakness No focal deficits. Skin: no ulcer no rash Lymphatic system. No LN neck axilla or groin. - Labs CBC & Chem 7: 09/11/17 06:56 09/11/17 06:56 Labs: Abnormal Lab Results - Last 24 Hours (Table) 09/10/17 09/10/17 09/11/17 Range/Units 14:00 21:00 06:56 WBC (3.8-10.6) k/uL RBC (3.80-5.40) m/uL Hgb (11.4-16.0) gm/dL Hct (34.0-46.0) % RDW (11.5-15.5) % Plt Count (150-450) k/uL Neutrophils # (Manual) (1.3-7.7) k/uL Lymphocytes # (Manual) (1.0-4.8) k/uL Chloride 113 H (98-107) mmol/L Carbon Dioxide 7 L* (22-30) mmol/L BUN 60 H (7-17) mg/dL Creatinine 4.41 H (0.52-1.04) mg/dL Plasma Lactic Acid Sg <0.5 L (0.7-2.0) mmol/L Calcium 7.5 L (8.4-10.2) mg/dL Magnesium 1.5 L (1.6-2.3) mg/dL Crossmatch See Detail 09/11/17 Range/Units 06:56 WBC 1.1 L* (3.8-10.6) k/uL RBC 3.27 L (3.80-5.40) m/uL Hgb 9.6 L D (11.4-16.0) gm/dL Hct 29.5 L (34.0-46.0) % RDW 16.1 H (11.5-15.5) % Plt Count 24 L* (150-450) k/uL Neutrophils # (Manual) 0.40 L (1.3-7.7) k/uL Lymphocytes # (Manual) 0.69 L (1.0-4.8) k/uL Chloride (98-107) mmol/L Carbon Dioxide (22-30) mmol/L BUN (7-17) mg/dL Creatinine (0.52-1.04) mg/dL Plasma Lactic Acid Sg (0.7-2.0) mmol/L Calcium (8.4-10.2) mg/dL Magnesium (1.6-2.3) mg/dL Crossmatch Microbiology - Last 24 Hours (Table) 09/10/17 13:54 Blood Culture - Preliminary Blood No Growth after 24 hours 09/10/17 11:30 Urine Culture - Preliminary Urine,Clean Catch Assessment and Plan Assessment: 1. Pancytopenia, neutropenic sepsis with hypotension and septic shock 2. Hyponatremia 3. Acute on chronic renal failure, stage III, acute injury secondary to ischemic ATN secondary to hypotension and anemia 4. Acute UTI 5. Abdominal pain and mucousy diarrhea, mucositis 6.CAD, history of GA 7. Gastroesophageal reflux disease 8. Multiple myeloma 9. Fibromyalgia 10. Anemia of chronic disease, status post transfusion of packed RBCs Plan: Continue on current medication regime ,monitoring and symptomatic treatment. Sodium bicarb drip as per nephrology. Magnesium replacement is a Follow cultures closely. Antibiotics as per infectious disease. Aggressive pulmonary toileting with incentive spirometer reinforced. Maintain nebulized bronchodilators . Close monitoring of hemoglobin with repeat labs in a.m. The impression and plan of care has been dictated as directed. : I performed a history and examination of this patient, discussed the same with the dictator. I agree with the dictator's note ,documented as a scribe. Any additional findings or plans will be noted.
--- NOTE | 2017-09-11 18:59 | CONS ---
CONSULTATION DATE OF SERVICE: 09/11/2017. REASON FOR CONSULTATION: Fever. HISTORY OF PRESENT ILLNESS: The patient is a 76-year-old female with past medical history significant for multiple myeloma. The patient has been brought into the ER at [facility] yesterday afternoon by the EMS after apparently the patient has been complaining of increasing weakness. She also have some chills on the day of presenting to the hospital. The patient could not sit up, almost fell over and was caught by the . No clear history of any syncopal episode. The patient noticed to have hypertension on arrival by the EMS and apparently did have a low urine output. With these symptoms the patient has been evaluated by the ER physician. On arrival to the ER the patient was afebrile, subsequently did have a low-grade fever of 100.2 x2 with low- grade fever subsequently of 100.1, afebrile this morning. The patient also noticed to be pancytopenic with a hemoglobin of 6, white count of 0.7, platelet count of 23, and evidence of renal insufficiency. Creatinine 4.46. Urine has been positive. The patient did have a chest x-ray which did show some improvement in aeration. No additional finding of interval changes. The patient has been started on broad-spectrum antibiotic in the form of cefepime and vancomycin and admitted to the hospital. Infectious Disease was consulted for further recommendation regarding antibiotic therapy. The patient currently denies having any headache. No significant URI symptoms. Her breathing is better. Minimal cough, not bringing up any sputum. No chest pain. No abdominal pain. She did have some burning of urine, but no frequency. No suprapubic pain. No diarrhea. Denies any pain at the right chest wall MediPort site. REVIEW OF SYSTEMS: CONSTITUTIONAL: Positive for weakness and low-grade fever. EYES: No complaint. ENT: No complaint. RESPIRATORY: As per HPI. CARDIOVASCULAR: No complaint. GENITOURINARY: As per HPI. GASTROINTESTINAL: No complaint: MUSCULOSKELETAL: No complaint. INTEGUMENTARY: No complaint. PSYCHOLOGICAL: No complaint. ENDOCRINE: No complaint. NEUROLOGIC: No complaint. PAST MEDICAL HISTORY: Multiple myeloma, coronary artery disease, osteoarthritis, pneumonia, hypothyroidism, fibromyalgia, gastroesophageal reflux disease and compression fracture. PAST SURGICAL HISTORY: Heart catheterization, cystocele and rectocele repair and right chest MediPort placement and hysterectomy. SOCIAL HISTORY: Denies smoking, drinking or drug use. , lives with . FAMILY HISTORY: Mother with history of ID. Father history of kidney cancer. ALLERGIES: CODEINE AND PENICILLIN with a history of rash. No history of anaphylaxis. MEDICATIONS: Include the patient is currently on Tylenol, Lovenox, DuoNeb, Xanax, vitamin C, aspirin, Lipitor, cefepime 1 g daily, Imdur, lactic acid, Synthroid, Lopressor, Remeron, Theragran, Narcan, Protonix. EXAMINATION: Blood pressure is 130/72 with a pulse of 79, temperature is 97.8. T-max is 100.2. She is 94% on room air. General description is an elderly female up in the bed in no distress. No tachypnea or accessory muscle of respiration use. HEENT: Shows pallor, no scleral icterus. Oral mucosa is dry. No pharyngeal erythema or thrush. NECK: Trachea central. No thyromegaly. LUNGS: Unlabored breathing, decreased breath sounds at the base. No wheeze or crackle. HEART: S1, S2. Regular rate and rhythm. Right chest wall MediPort site looks clean. ABDOMEN: Soft. There is no tenderness. No guarding, no rigidity. EXTREMITIES: No edema of the feet. SKIN EXAMINATION: No rash or mass palpable. NEUROLOGICAL: Patient is awake, alert, oriented x3. Mood and affect normal. LABS: Hemoglobin 9.5, white count 1.1, yesterday white count 0.7, BUN of 60, creatinine 4.41. Electrolytes have been normal. Urine has been positive. Urine culture currently pending. Blood culture obtained currently pending. DIAGNOSTIC IMPRESSION AND PLAN: 1. Patient with hospital generalized weakness along with chills. The patient did have a low-grade fever, which is likely multifactorial and the patient did have history of recurrent urinary tract infection with a positive urinalysis likely the source of this fever and weakness. The patient's chest x-ray did not show any evidence of pneumonia. Lungs are clear to auscultation. IV site looks clean. Abdomen was soft on clinical examination. No evidence of any cellulitis. 2. Patient does have antibiotic allergies that will limit the number of antibiotics that could be safely used. 3. Patient with renal insufficiency with high risk of nephrotoxicity from the antibiotic use. PLAN: 1. Cefepime 1 g daily should provide adequate coverage for underlying urinary tract infection from possible resistant gram-negative pathogen. Will adjust to her kidney function. 2. Gentle IV fluid. 3. Depending upon clinical response as well as cultures, will adjust her medications further if needed. Thank you for this consultation. Will follow this patient along with you. BIGG / IJN: [id number] /
[2017-09-11] MEDS: ATORVASTATIN 20 MG TAB PO SCH (19:55)
[2017-09-11] MEDS: ASPIRIN 81 MG PO SCH (19:55)
[2017-09-11] MEDS: MIRTAZAPINE 15 MG TAB PO SCH (19:55)
[2017-09-11] MEDS: ALPRAZolam 1 MG TAB PO PRN (20:10)
--- NOTE | 2017-09-11 21:57 | US ---
EXAMINATION TYPE: US kidneys/renal and bladder DATE OF EXAM: 09/11/2017 COMPARISON: NONE CLINICAL HISTORY: bria. EXAM MEASUREMENTS: Right Kidney: 11.5 x 4.3 x 5.5 cm Left Kidney: 11.6 x 5.4 x 5.6 cm Right Kidney: No hydronephrosis or masses seen Left Kidney: No hydronephrosis. No solid or cystic mass visualized. Pyramids appear prominent Bladder: wnl Bilateral Jets seen: No IMPRESSION: No renal mass. No hydronephrosis. We could not show ureteral jets that may indicate renal failure.
[2017-09-12] MEDS: LEVOTHYROXINE 25 MCG TAB PO SCH (05:14)
[2017-09-12 06:36] LABS: Calcium 7.4 mg/dL (8.4-10.2); Magnesium 1.9 mg/dL (1.6-2.3); Potassium 3.6 mmol/L (3.5-5.1)
[2017-09-12] MEDS: PANTOPRAZOLE 40 MG/10 ML VIAL IVP SCH ×2 (08:28→22:07)
[2017-09-12] MEDS: ISOSORBIDE MONONITRATE ER 15 MG TAB PO SCH (08:28)
[2017-09-12] MEDS: METOPROLOL TARTRATE 50 MG TAB PO SCH ×2 (08:28→21:21)
[2017-09-12] MEDS: CEFEPIME 1 GM in SODIUM CHLORIDE 0.9% 50 ML IVPB SCH (08:29)
[2017-09-12] MEDS: ACYCLOVIR 200 MG CAP PO SCH ×2 (08:29→21:21)
[2017-09-12] MEDS: LACTOBACILLUS ACIDOPH & BULGAR 1 EACH PACKET PO SCH ×2 (08:29→21:20)
--- NOTE | 2017-09-12 08:52 | P.PN ---
Subjective Progress Note Date: 09/12/17 Principal diagnosis: Severe sepsis, acute renal failure, advanced multiple myeloma, generalized weakness and medical debility, pancytopenia including anemia and neutropenia and thrombocytopenia 09/12/2017, patient seen and evaluated examined remains on broad-spectrum antibiotic supportive care, continue to complain of generalized weakness was severity has improved today, she had a low-grade temperature of over 99 blood pressure is stable oxygen saturation is stable, renal functions have slightly improved to BUN/creatinine 53 over 3.6, urine cultures are pending blood cultures no growth so far 76-year-old female with history of multiple myeloma overall a poor historian patient has a Port-A-Cath she is being evaluated for chemotherapy adjustment, patient sees in follow is Dr. Mei for her myeloma, she has not been feeling well for the last 2 days with progressive weakness cough and was brought into emergency department for further evaluation and intervention and treatment, patient brought in by EMS for evaluation of 2 days of increasing weakness she's had chills also today she could not sit up and asked the fell over and was caught by her . It is not whether she passed out or not. She has a history of multiple myeloma also stage III kidney disease. She states she's had no urine output for 2 days she was noted to have significant hypertension last blood pressure check was noted to be 80/40 per EMS. Patient has significant and decreased oral intake. Per report her old blood pressures about 140/90. She does not complain of any particular pain no blurry vision or other symptoms at this time no other modifying factors she has had previous treatments for the multiple myeloma. Laboratory data suggestive of worsening of renal failure and significant metabolic acidosis likely related related to renal failure, patient has found to have significant pancytopenia and thrombocytopenia and neutropenia and cultures have been obtained, patient has been initiated on broad-spectrum antibiotics in the form cefepime Objective - Vital Signs Vital signs: Vital Signs Temp 99.4 F 09/12/17 08:00 Pulse 94 09/12/17 08:00 Resp 16 09/12/17 08:00 BP 154/71 09/12/17 08:00 Pulse Ox 94 L 09/12/17 08:00 Intake & Output 09/11/17 09/12/17 09/12/17 18:59 06:59 18:59 Intake Total 350 240 240 Output Total 500 200 300 Balance -150 40 -60 Weight 61.5 kg 63 kg Intake: Intake, IV Titration 200 Amount Sodium Chloride 0.9% 1, 200 000 ml @ 50 mls/hr IV . Q20H [facility] Rx#:[id number] Oral 150 240 240 Output: Urine 500 200 300 Other: Voiding Method Bedpan Bedpan # Voids 1 1 # Bowel Movements 2 1 1 - Exam This is a well-developed well-nourished awake alert oriented 3 female Limitations: no limitations General appearance: alert, but lethargic Head exam: Present: atraumatic, normocephalic, normal inspection Eye exam: normal appearance, PERRL, EOMI. no evidence of scleral icterus, conjunctival injection, periorbital swelling ENT exam: mucous membranes dry Neck exam: normal inspection. No evidence of jugular venous distention carotid bruit, tenderness, meningismus, lymphadenopathy Respiratory exam: Noted to have bilateral normal lung sounds bilaterally. No evidence of respiratory distress, wheezes, rales, rhonchi, stridor, Port-A-Cath in anterior thoracic wall left side is intact Cardiovascular Exam: Present: regular rate, normal rhythm, normal heart sounds. Absent: systolic murmur, diastolic murmur, rubs, gallop, clicks GI/Abdominal exam: Present: soft, normal bowel sounds. No evidence of distended , tenderness, guarding, rebound, rigid Extremities exam: Present: normal inspection, full ROM, normal capillary refill. No evidence of tenderness, pedal edema, joint swelling, calf tenderness Neurological exam: Present: alert, oriented X3, CN II-XII intact, no focal neurological deficit within normal limits except some lethargy Psychiatric exam: Present: normal affect, normal mood Skin exam: Present: warm, dry, intact, normal color. Absent: rash - Labs CBC & Chem 7: 09/11/17 06:56 09/12/17 05:49 Labs: Abnormal Lab Results - Last 24 Hours (Table) 09/11/17 09/11/17 09/12/17 Range/Units 06:56 06:56 05:49 Neutrophils # (Manual) 0.40 L (1.3-7.7) k/uL Lymphocytes # (Manual) 0.69 L (1.0-4.8) k/uL Chloride 113 H 109 H (98-107) mmol/L Carbon Dioxide 7 L* 14 L (22-30) mmol/L BUN 60 H 53 H (7-17) mg/dL Creatinine 4.41 H 3.60 H (0.52-1.04) mg/dL Glucose 107 H (74-99) mg/dL Calcium 7.5 L 7.4 L (8.4-10.2) mg/dL Magnesium 1.5 L (1.6-2.3) mg/dL Microbiology - Last 24 Hours (Table) 09/10/17 13:54 Blood Culture - Preliminary Blood No Growth after 24 hours 09/10/17 11:30 Urine Culture - Preliminary Urine,Clean Catch Assessment and Plan Assessment: Sepsis, source is not clear may very well be urinary tract infection medrano cultures have been obtained, culture results and reports are pending Advanced multiple myeloma Severe pancytopenia including thrombocytopenia anemia and leukopenia/neutropenia Acute renal failure stage IV with worsening from baseline Baseline COPD Plan: Gentle rehydration Broad-spectrum antibiotics Monitor labs closely Hemoglobin improved post blood transfusion Continue bronchodilator Follow-up on culture results and report Continue deep breathing sense incentive spirometry Further recommendations pending plan of care as per clinical response of the patient Time with Patient: Greater than 30
--- NOTE | 2017-09-12 08:55 | P.PN ---
Subjective Patient is seen in follow-up for acute kidney injury. Patient's creatinine in June 2017 was in the range of 0.67-2.8. It was elevated at 4.46 this admission and is down to 3.6 today. She is currently maintained on a bicarbonate drip running at 75 mL an hour. Oral intake is improved. Hemoglobin was 6 and she did receive 2 units of blood transfusion. Hemoglobin improved. She was also extremely hypotensive with systolic blood pressure in the 80s which is now resolved. There was concern for neutropenic sepsis and she is currently maintained on IV antibiotics. She does have history of multiple myeloma not achieving remission. Vital signs are stable. General: The patient appeared well nourished and normally developed. HEENT: Head exam is unremarkable. Neck is without jugular venous distension. LUNGS: Lungs are clear to auscultation and percussion. Breath sounds decreased. HEART: Rate and Rhythm are regular. First and second heart sounds normal. No murmurs, rubs or gallops. ABDOMEN: Abdominal exam reveals normal bowel sounds. Non-tender and non- distended. No evidence of peritonitis. EXTREMITITES: No clubbing, cyanosis, or edema. Objective - Vital Signs Vital signs: Vital Signs Temp 99.4 F 09/12/17 08:00 Pulse 94 09/12/17 08:00 Resp 16 09/12/17 08:00 BP 154/71 09/12/17 08:00 Pulse Ox 94 L 09/12/17 08:00 Intake & Output 09/11/17 09/12/17 09/12/17 18:59 06:59 18:59 Intake Total 350 240 240 Output Total 500 200 300 Balance -150 40 -60 Weight 61.5 kg 63 kg Intake: Intake, IV Titration 200 Amount Sodium Chloride 0.9% 1, 200 000 ml @ 50 mls/hr IV . Q20H [facility] Rx#:[id number] Oral 150 240 240 Output: Urine 500 200 300 Other: Voiding Method Bedpan Bedpan # Voids 1 1 # Bowel Movements 2 1 1 - Labs CBC & Chem 7: 09/11/17 06:56 09/12/17 05:49 Labs: Abnormal Lab Results - Last 24 Hours (Table) 09/11/17 09/11/17 09/12/17 Range/Units 06:56 06:56 05:49 Neutrophils # (Manual) 0.40 L (1.3-7.7) k/uL Lymphocytes # (Manual) 0.69 L (1.0-4.8) k/uL Chloride 113 H 109 H (98-107) mmol/L Carbon Dioxide 7 L* 14 L (22-30) mmol/L BUN 60 H 53 H (7-17) mg/dL Creatinine 4.41 H 3.60 H (0.52-1.04) mg/dL Glucose 107 H (74-99) mg/dL Calcium 7.5 L 7.4 L (8.4-10.2) mg/dL Magnesium 1.5 L (1.6-2.3) mg/dL Microbiology - Last 24 Hours (Table) 09/10/17 13:54 Blood Culture - Preliminary Blood No Growth after 24 hours 09/10/17 11:30 Urine Culture - Preliminary Urine,Clean Catch Assessment and Plan Plan: Assessment: #1. Nonoliguric acute kidney injury secondary to ischemic ATN secondary to hypotension and anemia. Creatinine 4.46 on admission and down to 3.6 today. #2. Multiple myeloma diagnosed in 2011. Oncology following. #3. Anion gap metabolic acidosis secondary to acute kidney injury. Improving. #4. Pancytopenia likely related to underlying monoclonal disease. Status post 2 units of blood transfusion. #5. Hypomagnesemia related to poor oral intake. Improved post replacement. #6. Chronic kidney disease. Her creatinine June 2017 was in the range of 0.67-2.8. Etiology is myeloma kidney. #7. Pyuria. Urine culture pending. #8. Neutropenic sepsis maintained on broad-spectrum antibiotics. Likely source being UTI. Plan: Maintain isotonic sodium bicarbonate drip to be run at 75 mL an hour. Encouraged oral intake. Avoid nephrotoxic agents and hypotensive episodes. Follow-up cultures. Monitor hemoglobin and transfuse as needed. Continue to monitor renal function and urine output. No urgent need for renal replacement therapy at this time.
[2017-09-12] MEDS: DEXTROSE 5% IN WATER 1,000 ML with SODIUM BICARB (1 MEQ/ML) 150 ML IV SCH (10:37)
[2017-09-12] MEDS: MULTIVITAMINS, THERA 1 EACH TAB PO SCH (12:53)
[2017-09-12] MEDS: ASCORBIC ACID 500 MG TAB PO SCH (12:53)
--- NOTE | 2017-09-12 14:48 | PN ---
PROGRESS NOTE DATE OF SERVICE: 09/12/2017. CHIEF COMPLAINT: Weakness. Kavita seen today as a followup. She feels tired and weak and short of breath. However, she has no nausea or vomiting. No melena, hematochezia, or hematuria. No fever or chills. CURRENT MEDICATIONS: Include Tylenol 650 mg q.6 hours as needed, Zovirax 200 mg b.i.d., DuoNeb inhaler as needed, Xanax 1 mg t.i.d. as needed, vitamin C 500 mg daily, aspirin 81 mg daily, Lipitor 20 mg q.h.s., cefepime 50 mg IV piggyback daily. Imdur 50 mg daily. Lactobacillus b.i.d., Synthroid 25 mg daily, metoprolol 50 mg b.i.d., Remeron 7.5 mg q.h.s., multivitamin daily, Theragran daily, nystatin, Protonix 40 mg IV b.i.d. PHYSICAL EXAMINATION: She is alert, oriented x3. Does not appear to be in distress. Her vital signs are temperature 98.7. Her temp max 99.4. Pulse is 89, respirations 16, blood pressure 152/78. HEENT: Normocephalic, atraumatic. There is no obvious scleral icterus. NECK: Supple. CHEST: Equal expansion bilaterally. LUNGS: Clear to auscultation. HEART: Regular rhythm. ABDOMEN: Soft. No obvious organomegaly. EXTREMITIES: Reveal trace edema. LABORATORY DATA: WBC of 1.1, hemoglobin 9.7, hematocrit is 29.5, platelets are 24. Sodium 138, potassium 3.6, chloride 105, CO2 is 14. The BUN is 53, creatinine 3.6. IMPRESSION: 1. Multiple myeloma with multiple relapses and has become refractory to multiple lines of systemic treatment. 2. Pancytopenia. This is secondary to her multiple myeloma. 3. Renal failure. This is also likely secondary to her advanced and progressing multiple myeloma. RECOMMENDATION: The patient is aware of her multiple myeloma condition. She has failed multiple lines of therapy and she has become refractory. I did explain to her that her significant pancytopenia and renal failure are related to her multiple myeloma. Based on her performance status, her blood count and renal failure, she may not be a candidate for salvage and intensive systemic chemotherapy. We again discussed the option of trying oral BCL 2 inhibitor Venetoclax given on compassionate basis and she is agreeable to give it try. Will resume the process of applying for it in our office. I also would recommend to discontinue aspirin given her significant thrombocytopenia. BIGG / CHANTALE: [id number] /
[2017-09-12] MEDS: ALPRAZolam 1 MG TAB PO PRN (16:54)
--- NOTE | 2017-09-12 17:27 | PN ---
PROGRESS NOTE DATE OF SERVICE: 09/12/2017. INTERVAL HISTORY: This 76-year-old woman who was admitted with pancytopenia, neutropenia and sepsis is being closely monitored. The patient is feeling slightly better. Patient also has renal failure, which is also improving gradually. No chest pain. No palpitations. No fever. EXAM: Alert and oriented x3. The pulse is 89, blood pressure 150/72, respirations 16, temperature 98.7, pulse ox 98% on room air. HEENT: Conjunctivae normal. NECK: No jugular venous distention. CARDIOVASCULAR: S1, S2 RESPIRATORY: Breath sounds diminished in the bases. Bilateral scattered rhonchi and crackles. ABDOMEN: Soft, nontender. LEGS: No edema. NERVOUS SYSTEM: No focal deficits. LABS: At this time shows WBC 1.1, hemoglobin 9.6, platelets 24 and CO2 is 7 and 14, creatinine 3.60. UA noted. ASSESSMENT: 1. Pancytopenia, neutropenia and sepsis with hypotension, septic shock, present on admission. 2. Hyponatremia. 3. Acute on chronic renal failure stage III, acute kidney injury secondary to ischemic acute tubular necrosis secondary to hypotension and anemia. 4. Acute urinary tract infection. 5. Abdominal pain and mucousy diarrhea, mucositis. 6. Coronary artery disease, history of myocardial infarction. 7. History of gastroesophageal reflux disease. 8. Multiple myeloma. 9. Fibromyalgia. 10.Anemia of chronic disease, status post transfusion. RECOMMENDATIONS AND DISCUSSION: I recommend to continue current medications, symptomatic treatment. Otherwise continue to monitor. Repeat urine exam. Guarded prognosis. Further recommendations to follow. MMODL / IJN: [id number] /
[2017-09-12] MEDS: MIRTAZAPINE 15 MG TAB PO SCH (21:21)
[2017-09-12] MEDS: ATORVASTATIN 20 MG TAB PO SCH (21:21)
[2017-09-13] MEDS: ALPRAZolam 1 MG TAB PO PRN ×4 (01:24→23:37)
[2017-09-13] MEDS: DEXTROSE 5% IN WATER 1,000 ML with SODIUM BICARB (1 MEQ/ML) 150 ML IV SCH ×2 (05:54→20:32)
[2017-09-13] MEDS: LEVOTHYROXINE 25 MCG TAB PO SCH (05:55)
[2017-09-13 06:21] LABS: Calcium 7.3 mg/dL (8.4-10.2); Magnesium 1.7 mg/dL (1.6-2.3)
[2017-09-13] MEDS ORDERED: Potassium Replacement Protocol 1 EACH MISC MISCELLANE PRN (07:01)
[2017-09-13] MEDS ORDERED: MAGNESIUM SULFATE-D5W PMX 1 GM in DEXTROSE/WATER 1 100ML.BAG IVPB ONE (08:00)
[2017-09-13] MEDS ORDERED: POTASSIUM CHLORIDE ER 20 MEQ TAB.ER PO SCH (08:00)
--- NOTE | 2017-09-13 08:08 | P.PN ---
Subjective Patient is seen in follow-up for acute kidney injury. Patient's creatinine in June 2017 was in the range of 0.67-2.8. It was elevated at 4.46 this admission and is down to 3.2 today. She is currently maintained on a bicarbonate drip running at 75 mL an hour. Oral intake is improved. Hemoglobin was 6 and she did receive 2 units of blood transfusion. Hemoglobin improved. She was also extremely hypotensive with systolic blood pressure in the 80s which is now resolved. There was concern for neutropenic sepsis and she is currently maintained on IV antibiotics. She does have history of multiple myeloma not achieving remission. She is eager to go home. Vital signs are stable. General: The patient appeared well nourished and normally developed. HEENT: Head exam is unremarkable. Neck is without jugular venous distension. LUNGS: Lungs are clear to auscultation and percussion. Breath sounds decreased. HEART: Rate and Rhythm are regular. First and second heart sounds normal. No murmurs, rubs or gallops. ABDOMEN: Abdominal exam reveals normal bowel sounds. Non-tender and non- distended. No evidence of peritonitis. EXTREMITITES: No clubbing, cyanosis, or edema. Objective - Vital Signs Vital signs: Vital Signs Temp 97.2 F L 09/13/17 04:00 Pulse 94 09/13/17 04:00 Resp 18 09/13/17 04:00 BP 102/65 09/13/17 04:00 Pulse Ox 100 09/13/17 04:00 Intake & Output 09/12/17 09/13/17 09/13/17 18:59 06:59 18:59 Intake Total 1090 90 Output Total 900 605 Balance 190 -605 90 Weight 63 kg Intake: Intake, IV Titration 750 Amount Dextrose 5% in Water 1, 750 000 ml @ 75 mls/hr IV . [id number] [facility] with Sodium Bicarb (1 Meq/ml) 150 ml Rx#:[id number] Oral 340 90 Output: Urine 900 600 Stool 5 Other: Voiding Method Bedpan Bedpan # Voids 300 3 # Bowel Movements 1 - Labs CBC & Chem 7: 09/11/17 06:56 09/13/17 05:49 Labs: Abnormal Lab Results - Last 24 Hours (Table) 09/13/17 Range/Units 05:49 Potassium 3.0 L* (3.5-5.1) mmol/L BUN 45 H (7-17) mg/dL Creatinine 3.20 H (0.52-1.04) mg/dL Glucose 104 H (74-99) mg/dL Calcium 7.3 L (8.4-10.2) mg/dL Microbiology - Last 24 Hours (Table) 09/10/17 13:54 Blood Culture - Preliminary Blood No Growth after 48 hours 09/10/17 11:30 Urine Culture - Final Urine,Clean Catch Gwen albicans Assessment and Plan Plan: Assessment: #1. Nonoliguric acute kidney injury secondary to ischemic ATN secondary to hypotension and anemia. Creatinine 4.46 on admission and down to 3.2 today. #2. Multiple myeloma diagnosed in 2011. Oncology following. #3. Anion gap metabolic acidosis secondary to acute kidney injury. Improving. #4. 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 Status post 2 units of blood transfusion. #5. Hypomagnesemia related to poor oral intake. Improved post replacement. #6. Chronic kidney disease. Her creatinine June 2017 was in the range of 0.67-2.8. Etiology is myeloma kidney. #7. Urine culture positive for Gwen. #8. Neutropenic sepsis maintained on broad-spectrum antibiotics. Likely source being UTI. #9. Hypokalemia related to IV bicarb infusion causing intracellular potassium shifting. Plan: Discontinue sodium bicarbonate drip. Normal saline at 50 mL an hour for maintenance fluids. Replace potassium. 40 mEq today. Replace magnesium. 1 g IV today. Encouraged oral intake. Avoid nephrotoxic agents and hypotensive episodes. Follow-up cultures. Monitor hemoglobin and transfuse as needed. Continue to monitor renal function and urine output. No urgent need for renal replacement therapy at this time.
[2017-09-13] MEDS: PANTOPRAZOLE 40 MG/10 ML VIAL IVP SCH ×2 (08:29→20:32)
[2017-09-13] MEDS: ACYCLOVIR 200 MG CAP PO SCH ×2 (08:29→20:32)
[2017-09-13] MEDS: LACTOBACILLUS ACIDOPH & BULGAR 1 EACH PACKET PO SCH ×2 (08:29→20:32)
[2017-09-13] MEDS: METOPROLOL TARTRATE 50 MG TAB PO SCH ×2 (08:29→20:32)
[2017-09-13] MEDS: CEFEPIME 1 GM in SODIUM CHLORIDE 0.9% 50 ML IVPB SCH (08:29)
[2017-09-13] MEDS: ISOSORBIDE MONONITRATE ER 15 MG TAB PO SCH (08:29)
[2017-09-13] MEDS ORDERED: POTASSIUM CHLORIDE ER 20 MEQ TAB.ER PO ONE (09:00)
[2017-09-13 11:30] LABS: Appearance,Urine Clear (Clear); Bacteria,Urine Rare /hpf; Bilirubin,Urine Negative (Negative); Blood,Urine Negative (Negative); Budding Yeast,Urine Occasional /hpf; Color,Urine Light Yellow; Glucose,Urine (UA) Negative (Negative); Ketones,Urine Negative (Negative); Leukocyte Esterase,Urine Moderate (Negative); Mucus,Urine Rare /hpf; Nitrite,Urine Negative (Negative); PH, Urine 7.5 (5.0-8.0); Protein,Urine 1+ (Negative); RBC,Urine 1 /hpf (0-5); Specific Gravity,Urine 1.009 (1.001-1.035); Squamous Epithelial Cell,Urine 1 /hpf (0-4); Urobilinogen,Urine <2.0 mg/dL (<2.0); WBC,Urine 57 /hpf (0-5)
[2017-09-13 12:46] LABS: Anisocytosis Slight; HCT 27.6 % (34.0-46.0); HGB 9.1 gm/dL (11.4-16.0); MCH 28.9 pg (25.0-35.0); MCV 87.8 fL (80.0-100.0); Mean Platelet Volume 10.2; RBC 3.14 m/uL (3.80-5.40); RDW 16.5 % (11.5-15.5)
[2017-09-13 12:49] LABS: Platelet Count 20 k/uL (150-450); WBC 0.9 k/uL (3.8-10.6)
[2017-09-13] MEDS: ASCORBIC ACID 500 MG TAB PO SCH (13:00)
[2017-09-13] MEDS: MULTIVITAMINS, THERA 1 EACH TAB PO SCH (13:00)
[2017-09-13] MEDS ORDERED: LOPERAMIDE 2 MG CAP PO PRN (16:17)
--- NOTE | 2017-09-13 17:43 | PN ---
PROGRESS NOTE DATE OF SERVICE: 09/13/2017. INTERVAL HISTORY: This 76-year-old woman was admitted with pancytopenia, neutropenia, hypotension , shock on presentation, also had acute on chronic renal failure. The patient is receiving IV antibiotics and empiric antibiotics. Patient being closely monitored. No chest pain. No palpitations. No fever. The urine culture showed Gwen albicans. EXAM: Alert and oriented x3. Pulse is 96, blood pressure 135/62, respirations 16, temperature 97 degrees, pulse ox 97% on room air. HEENT conjunctivae normal. NECK: No jugular venous distention. Cardiovascular: S1, S2. RESPIRATORY: Breath sounds diminished in the bases. A few rhonchi. No crackles. Abdomen is soft, nontender. No mass. Legs no edema. No swelling. Central nervous system: Diffusely weak. LABS: WBC 8.9, hemoglobin 9.1, 20, potassium 3. Creatinine 3.20. negative. ASSESSMENT: 1. Pancytopenia, neutropenia, sepsis, hypotension, septic shock, present on admission. 2. Hyponatremia. 3. Urinary tract infection. 4. Acute on chronic renal failure, stage 3 with acute kidney injury secondary to ischemic acute tubular necrosis secondary to hypotension anemia. 5. Abdominal pain and mucousy diarrhea, mucositis, C dif negative. 6. Coronary artery disease, myocardial infarction. 7. History of gastroesophageal reflux disease. 8. Multiple myeloma. 9. Fibromyalgia. 10.Anemia of chronic disease, status post transfusion. RECOMMENDATIONS AND DISCUSSION: Recommend to continue current medications, management and symptomatic treatment. Otherwise at this time, I recommend continue empiric antibiotics. Continue the rest of medication. Monitor creatinine closely. Further recommendations to follow. MMODL / IJN: [id number] / ÁNGELA
[2017-09-13] MEDS: ATORVASTATIN 20 MG TAB PO SCH (20:32)
[2017-09-13] MEDS: MIRTAZAPINE 15 MG TAB PO SCH (20:32)
--- NOTE | 2017-09-13 23:40 | PN ---
PROGRESS NOTE DATE OF SERVICE: 09/13/2017 REASON FOR FOLLOW UP: Fever likely UTI. INTERVAL HISTORY: The patient's overall fever pattern has improved. She is breathing comfortably. The patient denies having any chest pain, shortness of breath or cough. No abdominal pain, did have some diarrhea. He did have stool for C. difficile, which was negative and did mention the diarrhea has improved with Imodium. On examination, her blood pressure is 142/80 with a pulse of 68, temperature 97.9. She is 100% on room air. General description is an elderly female lying in bed in no distress. RESPIRATORY SYSTEM: Unlabored breathing, clear to auscultation anteriorly. HEART: S1, S2. Regular rate and rhythm. ABDOMEN: Soft, no tenderness. LABS: Hemoglobin 9.1, white count 0.9, hematocrit of 3.20. Repeat urine is positive with moderate leukocyte esterase and . DIAGNOSTIC IMPRESSION AND PLAN: Patient in the hospital component of UTI. Urine now showing yeast and on admission was Gwen albicans. We will start the patient on Diflucan p.o. daily and discontinue cefepime has been seen. Continue supportive care. MMODL / IJN: [id number] /
[2017-09-14] MEDS: LEVOTHYROXINE 25 MCG TAB PO SCH (05:54)
[2017-09-14 06:43] LABS: Calcium 6.9 mg/dL (8.4-10.2); Magnesium 1.8 mg/dL (1.6-2.3); Potassium 3.6 mmol/L (3.5-5.1)
[2017-09-14 06:54] LABS: Anisocytosis Slight; HCT 24.5 % (34.0-46.0); HGB 8.2 gm/dL (11.4-16.0); MCH 28.8 pg (25.0-35.0); MCHC 33.5 g/dL (31.0-37.0); MCV 85.8 fL (80.0-100.0); Mean Platelet Volume 9.3; RBC 2.86 m/uL (3.80-5.40); RDW 16.2 % (11.5-15.5)
[2017-09-14 07:00] LABS: Platelet Count 19 k/uL (150-450); WBC 1.1 k/uL (3.8-10.6)
--- NOTE | 2017-09-14 07:47 | P.PN ---
Subjective Progress Note Date: 09/14/17 Principal diagnosis: acute on chronic renal failure. This is a 76-year-old white female essentially admitted for acute on chronic renal failure. Creatinine has been stabilizing. She hasn't underlying history of multiple myeloma. She is somewhat apprehensive about going home because of her perceived lack of ability to do instrumental activities of daily living. Objective - Vital Signs Vital signs: Vital Signs Temp 97.3 F L 09/14/17 03:33 Pulse 96 09/14/17 03:33 Resp 18 09/14/17 03:33 BP 113/64 09/14/17 03:33 Pulse Ox 100 09/14/17 03:33 Intake & Output 09/13/17 09/14/17 09/14/17 18:59 06:59 18:59 Intake Total 910 480 Output Total 303 4 Balance 607 476 Weight 64 kg Intake: Oral 910 480 Output: Urine 300 Stool 3 4 Other: Voiding Method Bedpan Bedpan # Voids 2 2 # Bowel Movements 0 - Constitutional General appearance: Present: average body habitus - EENT Eyes: Absent: abnormal pupil ENT: Present: normal oropharynx. Absent: hard of hearing, thrush - Neck Neck: Absent: lymphadenopathy - Respiratory Respiratory: bilateral: CTA - Cardiovascular Rhythm: regular Heart sounds: normal: S1, S2 Abnormal Heart Sounds: Absent: S3 Gallop - Gastrointestinal General gastrointestinal: Present: soft. Absent: tenderness - Musculoskeletal Musculoskeletal: Absent: gait normal - Psychiatric Psychiatric: Present: A&O x's 3 - Labs CBC & Chem 7: 09/14/17 05:36 09/14/17 05:36 Labs: Abnormal Lab Results - Last 24 Hours (Table) 09/13/17 09/13/17 09/14/17 Range/Units 05:49 09:00 05:36 WBC 0.9 L* (3.8-10.6) k/uL RBC 3.14 L (3.80-5.40) m/uL Hgb 9.1 L (11.4-16.0) gm/dL Hct 27.6 L (34.0-46.0) % RDW 16.5 H (11.5-15.5) % Plt Count 20 L* (150-450) k/uL BUN 36 H (7-17) mg/dL Creatinine 3.00 H (0.52-1.04) mg/dL Glucose 102 H (74-99) mg/dL Calcium 6.9 L (8.4-10.2) mg/dL Urine Protein 1+ H (Negative) Ur Leukocyte Esterase Moderate H (Negative) Urine WBC 57 H (0-5) /hpf Urine Bacteria Rare H (None) /hpf Urine Mucus Rare H (None) /hpf Urine Yeast (Budding) Occasional H (None) /hpf 09/14/17 Range/Units 05:36 WBC 1.1 L* (3.8-10.6) k/uL RBC 2.86 L (3.80-5.40) m/uL Hgb 8.2 L (11.4-16.0) gm/dL Hct 24.5 L (34.0-46.0) % RDW 16.2 H (11.5-15.5) % Plt Count 19 L* (150-450) k/uL BUN (7-17) mg/dL Creatinine (0.52-1.04) mg/dL Glucose (74-99) mg/dL Calcium (8.4-10.2) mg/dL Urine Protein (Negative) Ur Leukocyte Esterase (Negative) Urine WBC (0-5) /hpf Urine Bacteria (None) /hpf Urine Mucus (None) /hpf Urine Yeast (Budding) (None) /hpf Microbiology - Last 24 Hours (Table) 09/10/17 13:54 Blood Culture - Preliminary Blood No Growth after 72 hours Assessment and Plan (1) Acute renal failure Current Visit: Yes Status: Acute Code(s): N17.9 - ACUTE KIDNEY FAILURE, UNSPECIFIED SNOMED Code(s): 72166489 (2) Anemia Current Visit: Yes Status: Acute Code(s): D64.9 - ANEMIA, UNSPECIFIED SNOMED Code(s): 514814518 (3) Multiple myeloma Current Visit: Yes Status: Chronic Priority: High Code(s): C90.00 - MULTIPLE MYELOMA NOT HAVING ACHIEVED REMISSION SNOMED Code(s): 234902267 (4) Weakness Current Visit: No Status: Acute Priority: High Code(s): R53.1 - WEAKNESS SNOMED Code(s): 57402355 Plan: Continue current regimen of treatment. Appreciate nephrology input. The patient states ambulation is without difficulty. We'll anticipate discharge in the a.m. if renal function continues to stabilize. Check CMP in a.m. Home health nursing for discharge.
[2017-09-14] MEDS ORDERED: POTASSIUM CHLORIDE ER 20 MEQ TAB.ER PO STA (08:41)
[2017-09-14] MEDS: CEFEPIME 1 GM in SODIUM CHLORIDE 0.9% 50 ML IVPB SCH (08:47)
[2017-09-14] MEDS: METOPROLOL TARTRATE 50 MG TAB PO SCH ×2 (08:47→20:30)
[2017-09-14] MEDS: ALPRAZolam 1 MG TAB PO PRN ×2 (08:47→20:57)
[2017-09-14] MEDS: PANTOPRAZOLE 40 MG/10 ML VIAL IVP SCH ×2 (08:48→20:30)
[2017-09-14] MEDS: LACTOBACILLUS ACIDOPH & BULGAR 1 EACH PACKET PO SCH ×2 (08:48→20:30)
[2017-09-14] MEDS: ACYCLOVIR 200 MG CAP PO SCH ×2 (08:48→20:30)
[2017-09-14] MEDS: ISOSORBIDE MONONITRATE ER 15 MG TAB PO SCH (08:48)
--- NOTE | 2017-09-14 09:01 | P.PN ---
Subjective Patient is seen in follow-up for acute kidney injury. Patient's creatinine in June 2017 was in the range of 0.67-2.8. It was elevated at 4.46 this admission and is down to 3 today. She is currently maintained on a bicarbonate drip running at 75 mL an hour. Oral intake is improved. Hemoglobin was 6 and she did receive 2 units of blood transfusion. Hemoglobin improved. She was also extremely hypotensive with systolic blood pressure in the 80s which is now resolved. There was concern for neutropenic sepsis and is maintained on antibiotics per infectious disease recommendations. She does have history of multiple myeloma not achieving remission. She is eager to go home. Vital signs are stable. General: The patient appeared well nourished and normally developed. HEENT: Head exam is unremarkable. Neck is without jugular venous distension. LUNGS: Lungs are clear to auscultation and percussion. Breath sounds decreased. HEART: Rate and Rhythm are regular. First and second heart sounds normal. No murmurs, rubs or gallops. ABDOMEN: Abdominal exam reveals normal bowel sounds. Non-tender and non- distended. No evidence of peritonitis. EXTREMITITES: No clubbing, cyanosis, or edema. Objective - Vital Signs Vital signs: Vital Signs Temp 99.9 F H 09/14/17 08:40 Pulse 105 H 09/14/17 08:40 Resp 16 09/14/17 08:40 BP 142/67 09/14/17 08:40 Pulse Ox 97 09/14/17 08:40 Intake & Output 09/13/17 09/14/17 09/14/17 18:59 06:59 18:59 Intake Total 910 480 120 Output Total 303 4 Balance 607 476 120 Weight 64 kg Intake: Oral 910 480 120 Output: Urine 300 Stool 3 4 Other: Voiding Method Bedpan Bedpan # Voids 2 2 # Bowel Movements 0 - Labs CBC & Chem 7: 09/14/17 05:36 09/14/17 05:36 Labs: Abnormal Lab Results - Last 24 Hours (Table) 09/13/17 09/13/17 09/14/17 Range/Units 05:49 09:00 05:36 WBC 0.9 L* (3.8-10.6) k/uL RBC 3.14 L (3.80-5.40) m/uL Hgb 9.1 L (11.4-16.0) gm/dL Hct 27.6 L (34.0-46.0) % RDW 16.5 H (11.5-15.5) % Plt Count 20 L* (150-450) k/uL BUN 36 H (7-17) mg/dL Creatinine 3.00 H (0.52-1.04) mg/dL Glucose 102 H (74-99) mg/dL Calcium 6.9 L (8.4-10.2) mg/dL Urine Protein 1+ H (Negative) Ur Leukocyte Esterase Moderate H (Negative) Urine WBC 57 H (0-5) /hpf Urine Bacteria Rare H (None) /hpf Urine Mucus Rare H (None) /hpf Urine Yeast (Budding) Occasional H (None) /hpf 09/14/17 Range/Units 05:36 WBC 1.1 L* (3.8-10.6) k/uL RBC 2.86 L (3.80-5.40) m/uL Hgb 8.2 L (11.4-16.0) gm/dL Hct 24.5 L (34.0-46.0) % RDW 16.2 H (11.5-15.5) % Plt Count 19 L* (150-450) k/uL BUN (7-17) mg/dL Creatinine (0.52-1.04) mg/dL Glucose (74-99) mg/dL Calcium (8.4-10.2) mg/dL Urine Protein (Negative) Ur Leukocyte Esterase (Negative) Urine WBC (0-5) /hpf Urine Bacteria (None) /hpf Urine Mucus (None) /hpf Urine Yeast (Budding) (None) /hpf Microbiology - Last 24 Hours (Table) 09/10/17 13:54 Blood Culture - Preliminary Blood No Growth after 72 hours Assessment and Plan Plan: Assessment: #1. Nonoliguric acute kidney injury secondary to ischemic ATN secondary to hypotension and anemia. Creatinine 4.46 on admission and down to 3.2 today. #2. Multiple myeloma diagnosed in 2011. Oncology following. #3. Anion gap metabolic acidosis secondary to acute kidney injury. Improving. #4. 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 Status post 2 units of blood transfusion. #5. Hypomagnesemia related to poor oral intake. Improved post replacement. #6. Chronic kidney disease. Her creatinine June 2017 was in the range of 0.67-2.8. Etiology is myeloma kidney. #7. Urine culture positive for Gwen. #8. Neutropenic sepsis maintained on broad-spectrum antibiotics. Likely source being UTI. #9. Hypokalemia related to IV bicarb infusion causing intracellular potassium shifting. Improved post replacement. Plan: Discontinue sodium bicarbonate drip. Normal saline at 50 mL an hour for maintenance fluids. Replace potassium. 40 mEq today. Encouraged oral intake. Avoid nephrotoxic agents and hypotensive episodes. Follow-up cultures. Monitor hemoglobin and transfuse as needed. Continue to monitor renal function and urine output. No urgent need for renal replacement therapy at this time.
[2017-09-14 10:23] LABS: Band Neutrophils % 1 %; Basophils # (M) 0.01 k/uL (0-0.2); Lymphocytes # (M) 0.61 k/uL (1.0-4.8); Monocytes # (M) 0.06 k/uL (0-1.0); Neutrophils % (M) 38 %; Nucleated Red Blood Cells 0 /100 WBC (0-0); Poikilocytosis (M) Present; Total Cells Counted 100
--- NOTE | 2017-09-14 11:00 | P.PN ---
Subjective Progress Note Date: 09/14/17 Principal diagnosis: Severe sepsis, acute renal failure, advanced multiple myeloma, generalized weakness and medical debility, pancytopenia including anemia and neutropenia and thrombocytopenia, Gwen UTI 09/14/2017, patient seen eval examined during the rounds breathing comfortably continued to have severe generalized weakness she has mild shortness of breath but denies any cough or sputum production labs reviewed medications reviewed 09/13/2017, patient seen eval reexamined during the rounds clinically patient is breathing more comfortably denies any chest pain continued to have issues associated with generalized weakness patient remains on broad-spectrum antibiotics labs reviewed medications reviewed, patient renal function is slowly improving severe metabolic acidosis also noted to be improving noted mild hyokalemia being replaced, oncology services following severe pancytopenia appears to be related to advanced multiple myeloma 09/12/2017, patient seen and evaluated examined remains on broad-spectrum antibiotic supportive care, continue to complain of generalized weakness was severity has improved today, she had a low-grade temperature of over 99 blood pressure is stable oxygen saturation is stable, renal functions have slightly improved to BUN/creatinine 53 over 3.6, urine cultures are pending blood cultures no growth so far 76-year-old female with history of multiple myeloma overall a poor historian patient has a Port-A-Cath she is being evaluated for chemotherapy adjustment, patient sees in follow is Dr. Mei for her myeloma, she has not been feeling well for the last 2 days with progressive weakness cough and was brought into emergency department for further evaluation and intervention and treatment, patient brought in by EMS for evaluation of 2 days of increasing weakness she's had chills also today she could not sit up and asked the fell over and was caught by her . It is not whether she passed out or not. She has a history of multiple myeloma also stage III kidney disease. She states she's had no urine output for 2 days she was noted to have significant hypertension last blood pressure check was noted to be 80/40 per EMS. Patient has significant and decreased oral intake. Per report her old blood pressures about 140/90. She does not complain of any particular pain no blurry vision or other symptoms at this time no other modifying factors she has had previous treatments for the multiple myeloma. Laboratory data suggestive of worsening of renal failure and significant metabolic acidosis likely related related to renal failure, patient has found to have significant pancytopenia and thrombocytopenia and neutropenia and cultures have been obtained, patient has been initiated on broad-spectrum antibiotics in the form [email or web address] Objective - Vital Signs Vital signs: Vital Signs Temp 99.9 F H 09/14/17 08:40 Pulse 105 H 09/14/17 08:40 Resp 16 09/14/17 08:40 BP 142/67 09/14/17 08:40 Pulse Ox 97 09/14/17 08:40 Intake & Output 09/13/17 09/14/17 09/14/17 18:59 06:59 18:59 Intake Total 910 480 120 Output Total 303 4 Balance 607 476 120 Weight 64 kg Intake: Oral 910 480 120 Output: Urine 300 Stool 3 4 Other: Voiding Method Bedpan Bedpan # Voids 2 2 # Bowel Movements 0 - Exam This is a well-developed well-nourished awake alert oriented 3 female Limitations: no limitations General appearance: alert, but lethargic Head exam: Present: atraumatic, normocephalic, normal inspection Eye exam: normal appearance, PERRL, EOMI. no evidence of scleral icterus, conjunctival injection, periorbital swelling ENT exam: mucous membranes dry Neck exam: normal inspection. No evidence of jugular venous distention carotid bruit, tenderness, meningismus, lymphadenopathy Respiratory exam: Noted to have bilateral normal lung sounds bilaterally. No evidence of respiratory distress, wheezes, rales, rhonchi, stridor, Port-A-Cath in anterior thoracic wall left side is intact Cardiovascular Exam: Present: regular rate, normal rhythm, normal heart sounds. Absent: systolic murmur, diastolic murmur, rubs, gallop, clicks GI/Abdominal exam: Present: soft, normal bowel sounds. No evidence of distended , tenderness, guarding, rebound, rigid Extremities exam: Present: normal inspection, full ROM, normal capillary refill. No evidence of tenderness, pedal edema, joint swelling, calf tenderness Neurological exam: Present: alert, oriented X3, CN II-XII intact, no focal neurological deficit within normal limits except some lethargy Psychiatric exam: Present: normal affect, normal mood Skin exam: Present: warm, dry, intact, normal color. Absent: rash - Labs CBC & Chem 7: 09/14/17 05:36 09/14/17 05:36 Labs: Abnormal Lab Results - Last 24 Hours (Table) 09/13/17 09/13/17 09/14/17 Range/Units 05:49 09:00 05:36 WBC 0.9 L* (3.8-10.6) k/uL RBC 3.14 L (3.80-5.40) m/uL Hgb 9.1 L (11.4-16.0) gm/dL Hct 27.6 L (34.0-46.0) % RDW 16.5 H (11.5-15.5) % Plt Count 20 L* (150-450) k/uL Neutrophils # (Manual) (1.3-7.7) k/uL Lymphocytes # (Manual) (1.0-4.8) k/uL BUN 36 H (7-17) mg/dL Creatinine 3.00 H (0.52-1.04) mg/dL Glucose 102 H (74-99) mg/dL Calcium 6.9 L (8.4-10.2) mg/dL Urine Protein 1+ H (Negative) Ur Leukocyte Esterase Moderate H (Negative) Urine WBC 57 H (0-5) /hpf Urine Bacteria Rare H (None) /hpf Urine Mucus Rare H (None) /hpf Urine Yeast (Budding) Occasional H (None) /hpf 09/14/17 Range/Units 05:36 WBC 1.1 L* (3.8-10.6) k/uL RBC 2.86 L (3.80-5.40) m/uL Hgb 8.2 L (11.4-16.0) gm/dL Hct 24.5 L (34.0-46.0) % RDW 16.2 H (11.5-15.5) % Plt Count 19 L* (150-450) k/uL Neutrophils # (Manual) 0.40 L (1.3-7.7) k/uL Lymphocytes # (Manual) 0.61 L (1.0-4.8) k/uL BUN (7-17) mg/dL Creatinine (0.52-1.04) mg/dL Glucose (74-99) mg/dL Calcium (8.4-10.2) mg/dL Urine Protein (Negative) Ur Leukocyte Esterase (Negative) Urine WBC (0-5) /hpf Urine Bacteria (None) /hpf Urine Mucus (None) /hpf Urine Yeast (Budding) (None) /hpf Microbiology - Last 24 Hours (Table) 09/10/17 13:54 Blood Culture - Preliminary Blood No Growth after 72 hours Assessment and Plan Assessment: Sepsis, source is not clear may very well be urinary tract infection medrano cultures have been obtained, culture results and reports are pending Gwen UTI with immune suppressed is status Advanced multiple myeloma Hypokalemia, improved with replacement Severe pancytopenia including thrombocytopenia anemia and leukopenia/neutropenia Acute renal failure stage IV with worsening from baseline, however with rehydration slowly improving Baseline COPD Plan: Gentle rehydration Broad-spectrum antibiotics We will defer IgG infusion to oncology and infectious disease services if needed Monitor labs closely Hemoglobin improved post blood transfusion and has been stable Continue bronchodilator Follow-up on culture results and report Continue deep breathing sense incentive spirometry Further recommendations pending plan of care as per clinical response of the patient Time with Patient: Greater than 30
[2017-09-14 11:07] VITALS: BMI 31.6
[2017-09-14] MEDS: ASCORBIC ACID 500 MG TAB PO SCH (13:02)
[2017-09-14] MEDS: FLUCONAZOLE 100 MG TAB PO SCH (13:02)
[2017-09-14] MEDS: MULTIVITAMINS, THERA 1 EACH TAB PO SCH (13:02)
[2017-09-14] MEDS: SODIUM CHLORIDE 0.9% 1,000 ML IV SCH (13:03)
[2017-09-14] MEDS: ACETAMINOPHEN TAB 325 MG TAB PO PRN (15:13)
[2017-09-14] MEDS: ATORVASTATIN 20 MG TAB PO SCH (20:30)
[2017-09-14] MEDS: MIRTAZAPINE 15 MG TAB PO SCH (20:30)
--- NOTE | 2017-09-14 22:31 | PN ---
PROGRESS NOTE DATE OF SERVICE: 09/14/2017 REASON FOR FOLLOWUP: Urinary tract infection. INTERVAL HISTORY: The patient is afebrile. She is breathing comfortably. Denies having any chest pain, shortness of breath, cough. Abdominal pain and diarrhea has improved. EXAMINATION: Blood pressure 150/73, pulse of 104, temperature of 97.1. She is 94% on room air. General description is an elderly female lying in bed in no distress. RESPIRATORY SYSTEM: Unlabored breathing, clear to auscultation anteriorly. HEART: S1, S2. Regular rate and rhythm. ABDOMEN: Soft with no tenderness. LABS: Hemoglobin 8.8, white count . BUN of 36, creatinine of 3.01. DIAGNOSTIC IMPRESSION AND PLAN: Patient admitted to the hospital with low-grade fever. Did have a component significantly positive. Urine showing Gwen albicans, repeat showing yeast. Currently on oral Diflucan. She will continue for about a week to finish a course of therapy. Continue supportive care. MMODL / IJN: [id number] /
[2017-09-15] MEDS: ACETAMINOPHEN TAB 325 MG TAB PO PRN ×2 (00:53→09:13)
[2017-09-15 06:05] LABS: Anisocytosis Slight; HCT 22.3 % (34.0-46.0); HGB 7.7 gm/dL (11.4-16.0); MCHC 34.4 g/dL (31.0-37.0); MCV 87.3 fL (80.0-100.0); Mean Platelet Volume 8.4; RBC 2.55 m/uL (3.80-5.40); RDW 16.7 % (11.5-15.5)
[2017-09-15 06:10] LABS: Platelet Count 17 k/uL (150-450); WBC 0.8 k/uL (3.8-10.6)
[2017-09-15 06:19] LABS: Potassium 3.6 mmol/L (3.5-5.1)
[2017-09-15 06:39] LABS: Calcium 6.6 mg/dL (8.4-10.2)
[2017-09-15] MEDS: SODIUM CHLORIDE 0.9% 1,000 ML IV SCH (06:52)
--- NOTE | 2017-09-15 06:58 | P.DS ---
Providers Date of admission: 09/10/17 15:48 Attending physician: Sami Cardenas Consults: 09/10/17 15:50 Consult Physician Routine Consulting Provider: Nirmala Sher Consult Reason/Comments: Multiple myeloma, neutropenia, thrombocytopenia, fever Do you want consulting provider notified?: Yes Consult Physician Routine Consulting Provider: Genie Moore Consult Reason/Comments: Acute renal failure Do you want consulting provider notified?: Yes 09/10/17 20:39 Consult Physician Routine Consulting Provider: Devante Diggs Consult Reason/Comments: sob, sepsis Do you want consulting provider notified?: Yes Consult Physician Routine Consulting Provider: Christopher Laguna Consult Reason/Comments: sepsis Do you want consulting provider notified?: Yes Primary care physician: Sami Cardenas - Discharge Diagnosis(es) (1) Acute renal failure Current Visit: Yes Status: Acute (2) Anemia Current Visit: Yes Status: Acute (3) Multiple myeloma Current Visit: Yes Status: Chronic Priority: High (4) Weakness Current Visit: No Status: Acute Priority: High Hospital Course: This is a discharge summary 76-year-old white female essentially admitted for acute on chronic renal failure. Appropriate resuscitation was done via consultants treatment and therapy. The patient will be now discharged in stable condition to follow-up with me in about one week. We will check CBC in about 2448 hrs. She is significantly weak but wishes to continue with chemotherapy for her multiple myeloma. The patient is discharged in stable but guarded condition. Patient Condition at Discharge: Serious Plan - Discharge Summary New Discharge Prescriptions: New Fluconazole [Diflucan] 100 mg PO DAILY #14 tab Continue Acetaminophen Tab [Tylenol] 1,000 mg PO Q6H PRN PRN Reason: Fever Levothyroxine Sodium [Levoxyl] 25 mcg PO DAILY Lactobacillus Acidophilus [Acidophilus] 2 tab PO BID Mirtazapine [Remeron] 7.5 mg PO HS Aspirin 81 mg PO HS Lisinopril [Zestril] 5 mg PO DAILY@1200 Isosorbide Mononitrate [Isosorbide Mononitrate ER] 15 mg PO DAILY Ascorbic Acid [Vitamin C] 500 mg PO DAILY Ipratropium-Albuterol Nebulize [Duoneb 0.5 mg-3 mg/3 ml Soln] 3 ml INHALATION RT-Q4H PRN ampul.neb PRN Reason: Shortness Of Breath Or Wheezing Metoprolol Tartrate [Lopressor] 50 mg PO BID tab Acyclovir [Zovirax] 200 mg PO BID Multivits,Th W-Ca,Fe,Oth Min [Therapeutic M] 1 tab PO DAILY Simvastatin 40 mg PO HS Furosemide [Lasix] 40 mg PO DAILY@1200 Ferrous Sulfate [Iron (65 MG Elemental)] 325 mg PO DAILY@1200 Lansoprazole [Prevacid] 30 mg PO DAILY ALPRAZolam [Xanax] 1 mg PO TID PRN PRN Reason: Anxiety Nystatin 100,000 Unit/gm Powd [Mycostatin Powder] 1 applic TOPICAL BID PRN PRN Reason: Skin Irritation Discharge Medication List Acetaminophen Tab [Tylenol] 1,000 mg PO Q6H PRN 01/04/14 [History] Levothyroxine Sodium [Levoxyl] 25 mcg PO DAILY 01/04/14 [History] Lactobacillus Acidophilus [Acidophilus] 2 tab PO BID 11/14/15 [History] Aspirin 81 mg PO HS 09/05/16 [History] Mirtazapine [Remeron] 7.5 mg PO HS 09/05/16 [History] Ascorbic Acid [Vitamin C] 500 mg PO DAILY 06/26/17 [History] Isosorbide Mononitrate [Isosorbide Mononitrate ER] 15 mg PO DAILY 06/26/17 [ History] Lisinopril [Zestril] 5 mg PO DAILY@1200 06/26/17 [History] Ipratropium-Albuterol Nebulize [Duoneb 0.5 mg-3 mg/3 ml Soln] 3 ml INHALATION RT -Q4H PRN ampul.neb 07/10/17 [Rx] Metoprolol Tartrate [Lopressor] 50 mg PO BID tab 07/10/17 [Rx] Acyclovir [Zovirax] 200 mg PO BID 07/21/17 [History] Multivits,Th W-Ca,Fe,Oth Min [Therapeutic M] 1 tab PO DAILY 07/21/17 [History] ALPRAZolam [Xanax] 1 mg PO TID PRN 09/10/17 [History] Ferrous Sulfate [Iron (65 MG Elemental)] 325 mg PO DAILY@1200 09/10/17 [History] Furosemide [Lasix] 40 mg PO DAILY@1200 09/10/17 [History] Lansoprazole [Prevacid] 30 mg PO DAILY 09/10/17 [History] Nystatin 100,000 Unit/gm Powd [Mycostatin Powder] 1 applic TOPICAL BID PRN 09/10 [History] Simvastatin 40 mg PO HS 09/10/17 [History] Fluconazole [Diflucan] 100 mg PO DAILY #14 tab 09/15/17 [Rx] Follow up Appointment(s)/Referral(s): Sami Cardenas MD [Primary Care Provider] - 1-2 days [facility], [NON-STAFF] - Devante Diggs MD [STAFF PHYSICIAN] - 1 Week Can Bajwa DO [STAFF PHYSICIAN] - 1 Week Nirmala Sher MD [STAFF PHYSICIAN] - 09/22/17 4:45 pm Patient Instructions/Handouts: Acute Kidney Injury (DC), Urinary Tract Infection in Women (DC), Acute Diarrhea (GEN)
[2017-09-15] MEDS: PANTOPRAZOLE 40 MG/10 ML VIAL IVP SCH (09:05)
[2017-09-15] MEDS: ACYCLOVIR 200 MG CAP PO SCH (09:05)
[2017-09-15] MEDS: LEVOTHYROXINE 25 MCG TAB PO SCH (09:05)
[2017-09-15] MEDS: ISOSORBIDE MONONITRATE ER 15 MG TAB PO SCH ×2 (09:05→09:13)
[2017-09-15] MEDS: FLUCONAZOLE 100 MG TAB PO SCH (09:05)
[2017-09-15] MEDS: METOPROLOL TARTRATE 50 MG TAB PO SCH (09:05)
[2017-09-15] MEDS: LACTOBACILLUS ACIDOPH & BULGAR 1 EACH PACKET PO SCH (09:05)
[2017-09-15] MEDS: ALPRAZolam 1 MG TAB PO PRN (09:12)
[2017-09-15] MEDS ORDERED: POTASSIUM CHLORIDE ER 20 MEQ TAB.ER PO STA (09:45)
[2017-09-15] MEDS ORDERED: CALCIUM GLUCONATE 1,000 MG in SODIUM CHLORIDE 0.9% 100 ML IVPB ONE (10:00)
--- NOTE | 2017-09-15 10:06 | P.PN ---
Subjective Patient is seen in follow-up for acute kidney injury. Patient's creatinine in June 2017 was in the range of 0.67-2.8. It was elevated at 4.46 this admission and did come down to 3.0 - 3.2 today. She is currently maintained on normal saline at 50 mL an hour. Oral intake is improved. Hemoglobin was 6 and she did receive 2 units of blood transfusion. Hemoglobin improved. She was also extremely hypotensive with systolic blood pressure in the 80s which is now resolved. There was concern for neutropenic sepsis and is maintained on antibiotics per infectious disease recommendations. She does have history of multiple myeloma not achieving remission. She is eager to go home. Vital signs are stable. General: The patient appeared well nourished and normally developed. HEENT: Head exam is unremarkable. Neck is without jugular venous distension. LUNGS: Lungs are clear to auscultation and percussion. Breath sounds decreased. HEART: Rate and Rhythm are regular. First and second heart sounds normal. No murmurs, rubs or gallops. ABDOMEN: Abdominal exam reveals normal bowel sounds. Non-tender and non- distended. No evidence of peritonitis. EXTREMITITES: No clubbing, cyanosis, or edema. Objective - Vital Signs Vital signs: Vital Signs Temp 100.1 F H 09/15/17 04:00 Pulse 95 09/15/17 04:00 Resp 18 09/15/17 04:00 BP 107/52 09/15/17 04:00 Pulse Ox 95 09/15/17 08:01 Intake & Output 09/14/17 09/15/17 09/15/17 18:59 06:59 18:59 Intake Total 810 820 0 Output Total 202 202 Balance 608 618 0 Weight 64 kg Intake: Intake, IV Titration 400 Amount Sodium Chloride 0.9% 1, 400 000 ml @ 50 mls/hr IV . Q20H [facility] Rx#:[id number] Oral 810 420 0 Output: Urine 200 200 Stool 2 2 Other: Voiding Method Toilet Bedside Commode Bedpan # Voids 2 1 2 # Bowel Movements 0 2 - Labs CBC & Chem 7: 09/15/17 05:33 09/15/17 05:33 Labs: Abnormal Lab Results - Last 24 Hours (Table) 09/14/17 09/15/17 09/15/17 Range/Units 05:36 05:33 05:33 WBC 0.8 L* (3.8-10.6) k/uL RBC 2.55 L (3.80-5.40) m/uL Hgb 7.7 L (11.4-16.0) gm/dL Hct 22.3 L (34.0-46.0) % RDW 16.7 H (11.5-15.5) % Plt Count 17 L* (150-450) k/uL Neutrophils # (Manual) 0.40 L (1.3-7.7) k/uL Lymphocytes # (Manual) 0.61 L (1.0-4.8) k/uL BUN 33 H (7-17) mg/dL Creatinine 3.20 H (0.52-1.04) mg/dL Calcium 6.6 L (8.4-10.2) mg/dL Microbiology - Last 24 Hours (Table) 09/10/17 13:54 Blood Culture - Preliminary Blood No Growth after 96 hours Assessment and Plan Plan: Assessment: #1. Nonoliguric acute kidney injury secondary to ischemic ATN secondary to hypotension and anemia. Creatinine 4.46 on admission and 3.2 today. #2. Multiple myeloma diagnosed in 2011. Oncology following. #3. Anion gap metabolic acidosis secondary to acute kidney injury. Improving. #4. 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 Status post 2 units of blood transfusion. #5. Hypomagnesemia related to poor oral intake. Improved post replacement. #6. Chronic kidney disease. Her creatinine June 2017 was in the range of 0.67-2.8. Etiology is myeloma kidney. #7. Urine culture positive for Gwen, maintained on Diflucan. #8. Neutropenic sepsis maintained on broad-spectrum antibiotics. Likely source being UTI. #9. Hypokalemia related to IV bicarb infusion causing intracellular potassium shifting. Improved post replacement. #10. Hypocalcemia secondary to acute kidney injury. Corrected calcium is 7.8. Plan: Normal saline at 50 mL an hour for maintenance fluids. Replace potassium. 40 mEq today. 1 g IV calcium gluconate today. Encouraged oral intake. Avoid nephrotoxic agents and hypotensive episodes. Follow-up cultures. Monitor hemoglobin and transfuse as needed. Continue to monitor renal function and urine output. No urgent need for renal replacement therapy at this time. Stable to be discharged home from nephrology standpoint. She will need to get a basic metabolic panel checked within 2-3 days of discharge and follow-up as an outpatient in the next 1-2 weeks.
--- NOTE | 2017-09-15 10:58 | P.PN ---
Subjective Progress Note Date: 09/15/17 Principal diagnosis: syncope, dehydration Pt seen in follow up, she is feeling rather well, she did have some shaking with the fever last night but denies fever or chills since, she is eating and drinking, no sore throat, cough, SOB, abd pain, dysuria, diarrhea or pain. Pt ambulated in the halls yesterday but not yet today. Objective - Vital Signs Vital signs: Vital Signs Temp 100.1 F H 09/15/17 04:00 Pulse 95 09/15/17 04:00 Resp 18 09/15/17 04:00 BP 107/52 09/15/17 04:00 Pulse Ox 95 09/15/17 08:01 Intake & Output 09/14/17 09/15/17 09/15/17 18:59 06:59 18:59 Intake Total 810 820 0 Output Total 202 202 Balance 608 618 0 Weight 64 kg Intake: Intake, IV Titration 400 Amount Sodium Chloride 0.9% 1, 400 000 ml @ 50 mls/hr IV . Q20H [facility] Rx#:[id number] Oral 810 420 0 Output: Urine 200 200 Stool 2 2 Other: Voiding Method Toilet Bedside Commode Bedpan # Voids 2 1 2 # Bowel Movements 0 2 - Constitutional General appearance: Present: cooperative, no acute distress - EENT Eyes: Present: anicteric sclerae ENT: Present: normal oropharynx - Respiratory Respiratory: bilateral: CTA - Cardiovascular Heart sounds: normal: S1, S2 - Peripheral edema leg Peripheral Edema: bilateral: 1+ (non-pitting) - Gastrointestinal General gastrointestinal: Present: normal bowel sounds, soft - Integumentary Integumentary: Present: pale - Neurologic Neurologic: Present: CNII-XII intact - Musculoskeletal Musculoskeletal: Present: generalized weakness, strength equal bilaterally - Psychiatric Psychiatric: Present: A&O x's 3, appropriate affect, intact judgment & insight - Labs CBC & Chem 7: 09/15/17 05:33 09/15/17 05:33 Labs: Abnormal Lab Results - Last 24 Hours (Table) 09/15/17 09/15/17 Range/Units 05:33 05:33 WBC 0.8 L* (3.8-10.6) k/uL RBC 2.55 L (3.80-5.40) m/uL Hgb 7.7 L (11.4-16.0) gm/dL Hct 22.3 L (34.0-46.0) % RDW 16.7 H (11.5-15.5) % Plt Count 17 L* (150-450) k/uL BUN 33 H (7-17) mg/dL Creatinine 3.20 H (0.52-1.04) mg/dL Calcium 6.6 L (8.4-10.2) mg/dL Microbiology - Last 24 Hours (Table) 09/10/17 13:54 Blood Culture - Preliminary Blood No Growth after 96 hours Assessment and Plan (1) Multiple myeloma Narrative/Plan: Pt is going to be started on compassionate use venetoclax. She will be sched to f/u in the office in 3 days for discussion about drug and plan of care. She verbalized understanding. Current Visit: Yes Status: Chronic Priority: High Code(s): C90.00 - MULTIPLE MYELOMA NOT HAVING ACHIEVED REMISSION SNOMED Code(s): 524207138 (2) Pancytopenia Narrative/Plan: Pt pancytopenia is due to disease as well as history of treatment and acute fungal UTI. No acute interventions today. She will be seen in office in the next 48-72 hours for follow up. She will be provided with conservative transfusions/supportive treatments Current Visit: Yes Status: Chronic Priority: Medium Code(s): D61.818 - OTHER PANCYTOPENIA SNOMED Code(s): 247635157 Plan: Case was discussed briefly with Dr. Laguna and he will be prescribing anti- fungal treatment completion. Discussed with nursing and pt is ok from Hem/Onc standpoint to be discharged, she will have close follow up.
[2017-09-15 11:14] VITALS: RESP 16
[2017-09-15] MEDS: MULTIVITAMINS, THERA 1 EACH TAB PO SCH (12:08)
[2017-09-15 12:14] VITALS: BP 123/58; PULSE 86; TEMP 99.7
--- NOTE | 2017-09-15 12:58 | PN ---
PROGRESS NOTE DATE OF SERVICE: 09/15/2017 REASON FOR FOLLOWUP: 1. Urinary tract infection. 2. New fever. INTERVAL HISTORY: The patient did spike a fever last night of 101.9 degrees Fahrenheit with 100 this morning. The patient did have some chills last night; however, the patient this morning says he is feeling better. She is breathing comfortably. Denies having any URI symptoms. No chest pain, shortness of breath or cough. No abdominal pain. Her urinary symptoms have resolved and diarrhea has resolved as well. PHYSICAL EXAMINATION: Her blood pressure is 146/72 with a pulse of 101, temperature of 100, T-max is 101, she is 96% on room air. General description is an elderly female, lying in bed in no distress. RESPIRATORY SYSTEM: Unlabored breathing with decreased breath sounds in the bases, no wheeze. HEART: S1, S2. Regular rate and rhythm. ABDOMEN: Soft, no tenderness. EXTREMITIES: No edema of the feet. LABS: BUN of 33, creatinine 3.20. White count of 0.8, hemoglobin 7.7. The blood culture has been negative. Urine with an E. coli deep with Gwen albicans. DIAGNOSTIC IMPRESSION AND PLAN: Patient admitted to the hospital with febrile neutropenia with concern for possible urinary tract infection. Initially treated with Seroquel; however, urine finalized subsequently with Gwen. Currently on oral Diflucan. The patient did spike another fever last night with concern for possible related to her hematological malignancy. The patient was seen with her oncology nurse practitioner for which she knows her well and the patient overall looks better with local suspicion for underlying bacterial infection. We initially ordered some cultures from the port and blood flow O2 cancer. The patient may be able to go home on oral Diflucan with close outpatient followup. Continue supportive care. MMODL / IJN: [id number] /
[2017-09-15] MEDS: ASCORBIC ACID 500 MG TAB PO SCH (16:53)
--- NOTE | 2017-09-15 17:22 | P.PN ---
Subjective Progress Note Date: 09/15/17 Principal diagnosis: Severe sepsis, acute renal failure, advanced multiple myeloma, generalized weakness and medical debility, pancytopenia including anemia and neutropenia and thrombocytopenia, Gwen UTI 09/15/2017, patient seen eval examined during the rounds she remains very weak get short of breath on activity and exertion however denies any cough or sputum production patient is being evaluated by oncology service as well as ID service patient is being treated for Gwen UTI and will be on palliative therapy for advanced multiple myeloma patient has not responded satisfactorily to previous therapy with continued to have progressive disease now involving the bone marrow was significant anemia and thrombocytopenia and leukopenia 09/14/2017, patient seen eval examined during the rounds breathing comfortably continued to have severe generalized weakness she has mild shortness of breath but denies any cough or sputum production labs reviewed medications reviewed 09/13/2017, patient seen eval reexamined during the rounds clinically patient is breathing more comfortably denies any chest pain continued to have issues associated with generalized weakness patient remains on broad-spectrum antibiotics labs reviewed medications reviewed, patient renal function is slowly improving severe metabolic acidosis also noted to be improving noted mild hyokalemia being replaced, oncology services following severe pancytopenia appears to be related to advanced multiple myeloma 09/12/2017, patient seen and evaluated examined remains on broad-spectrum antibiotic supportive care, continue to complain of generalized weakness was severity has improved today, she had a low-grade temperature of over 99 blood pressure is stable oxygen saturation is stable, renal functions have slightly improved to BUN/creatinine 53 over 3.6, urine cultures are pending blood cultures no growth so far 76-year-old female with history of multiple myeloma overall a poor historian patient has a Port-A-Cath she is being evaluated for chemotherapy adjustment, patient sees in follow is Dr. Mei for her myeloma, she has not been feeling well for the last 2 days with progressive weakness cough and was brought into emergency department for further evaluation and intervention and treatment, patient brought in by EMS for evaluation of 2 days of increasing weakness she's had chills also today she could not sit up and asked the fell over and was caught by her . It is not whether she passed out or not. She has a history of multiple myeloma also stage III kidney disease. She states she's had no urine output for 2 days she was noted to have significant hypertension last blood pressure check was noted to be 80/40 per EMS. Patient has significant and decreased oral intake. Per report her old blood pressures about 140/90. She does not complain of any particular pain no blurry vision or other symptoms at this time no other modifying factors she has had previous treatments for the multiple myeloma. Laboratory data suggestive of worsening of renal failure and significant metabolic acidosis likely related related to renal failure, patient has found to have significant pancytopenia and thrombocytopenia and neutropenia and cultures have been obtained, patient has been initiated on broad-spectrum antibiotics in the form [email or web address] Objective - Vital Signs Vital signs: Vital Signs Temp 99.7 F H 09/15/17 12:00 Pulse 86 09/15/17 12:00 Resp 16 09/15/17 15:53 BP 123/58 09/15/17 12:00 Pulse Ox 96 09/15/17 12:00 Intake & Output 09/14/17 09/15/17 09/15/17 18:59 06:59 18:59 Intake Total 810 820 840 Output Total 202 202 Balance 608 618 840 Weight 64 kg Intake: Intake, IV Titration 400 Amount Sodium Chloride 0.9% 1, 400 000 ml @ 50 mls/hr IV . Q20H [facility] Rx#:[id number] Oral 810 420 840 Output: Urine 200 200 Stool 2 2 Other: Voiding Method Toilet Bedside Commode Bedside Commode Bedpan # Voids 2 1 1 # Bowel Movements 0 1 - Exam This is a well-developed well-nourished awake alert oriented 3 female Limitations: no limitations General appearance: alert, but lethargic Head exam: Present: atraumatic, normocephalic, normal inspection Eye exam: normal appearance, PERRL, EOMI. no evidence of scleral icterus, conjunctival injection, periorbital swelling ENT exam: mucous membranes dry Neck exam: normal inspection. No evidence of jugular venous distention carotid bruit, tenderness, meningismus, lymphadenopathy Respiratory exam: Noted to have bilateral normal lung sounds bilaterally. No evidence of respiratory distress, wheezes, rales, rhonchi, stridor, Port-A-Cath in anterior thoracic wall left side is intact Cardiovascular Exam: Present: regular rate, normal rhythm, normal heart sounds. Absent: systolic murmur, diastolic murmur, rubs, gallop, clicks GI/Abdominal exam: Present: soft, normal bowel sounds. No evidence of distended , tenderness, guarding, rebound, rigid Extremities exam: Present: normal inspection, full ROM, normal capillary refill. No evidence of tenderness, pedal edema, joint swelling, calf tenderness Neurological exam: Present: alert, oriented X3, CN II-XII intact, no focal neurological deficit within normal limits except some lethargy Psychiatric exam: Present: normal affect, normal mood Skin exam: Present: warm, dry, intact, normal color. Absent: rash - Labs CBC & Chem 7: 09/15/17 05:33 09/15/17 05:33 Labs: Abnormal Lab Results - Last 24 Hours (Table) 09/15/17 09/15/17 Range/Units 05:33 05:33 WBC 0.8 L* (3.8-10.6) k/uL RBC 2.55 L (3.80-5.40) m/uL Hgb 7.7 L (11.4-16.0) gm/dL Hct 22.3 L (34.0-46.0) % RDW 16.7 H (11.5-15.5) % Plt Count 17 L* (150-450) k/uL BUN 33 H (7-17) mg/dL Creatinine 3.20 H (0.52-1.04) mg/dL Calcium 6.6 L (8.4-10.2) mg/dL Microbiology - Last 24 Hours (Table) 09/10/17 13:54 Blood Culture - Preliminary Blood No Growth after 120 hours Assessment and Plan Assessment: Sepsis, source is not clear may very well be urinary tract infection medrano cultures have been obtained, culture results and reports are pending Hers-like process likely related to advanced multiple myeloma Gwen UTI with immune suppressed is status Advanced multiple myeloma Hypokalemia, improved with replacement Severe pancytopenia including thrombocytopenia anemia and leukopenia/neutropenia Acute renal failure stage IV with worsening from baseline, however with rehydration slowly improving Baseline COPD Plan: Overall prognosis poor continue supportive care will follow closely Monitor labs closely Hemoglobin improved post blood transfusion and has been stable Continue bronchodilator Follow-up on culture results and report Continue deep breathing sense incentive spirometry Further recommendations pending plan of care as per clinical response of the patient Time with Patient: Greater than 30
== END 2017-09-15 17:24 | disposition home health service (06) | DRG 871 ==
LOC: EC 12:19 → 6SEL 15:48
PROVIDERS: ADMIT Family Medicine; ATTEND Family Medicine
PROC: 30233N1 Transfusion of Nonautologous Red Blood Cells into Peripheral Vein, Percutaneous Approach (ICD-10-PCS; principal; 2017-09-10)
DX: A41.9 Sepsis, unspecified organism (principal); N17.0 Acute kidney failure with tubular necrosis; R65.21 Severe sepsis with septic shock; D61.818 Other pancytopenia; C90.00 Multiple myeloma not having achieved remission; E87.2 Acidosis; D70.3 Neutropenia due to infection; E83.42 Hypomagnesemia; E83.51 Hypocalcemia; N18.3 Chronic kidney disease, stage 3 (moderate); E87.1 Hypo-osmolality and hyponatremia; K92.81 Gastrointestinal mucositis (ulcerative); B37.49 Other urogenital candidiasis; J44.9 Chronic obstructive pulmonary disease, unspecified; E86.0 Dehydration; D63.8 Anemia in other chronic diseases classified elsewhere; R50.81 Fever presenting with conditions classified elsewhere; E03.9 Hypothyroidism, unspecified; E87.6 Hypokalemia; I12.9 Hypertensive chronic kidney disease with stage 1 through stage 4 chronic kidney disease, or unspecified chronic kidney disease; I25.10 Atherosclerotic heart disease of native coronary artery without angina pectoris; M79.7 Fibromyalgia; K21.9 Gastro-esophageal reflux disease without esophagitis; I25.2 Old myocardial infarction; M19.91 Primary osteoarthritis, unspecified site; M48.50XD Collapsed vertebra, not elsewhere classified, site unspecified, subsequent encounter for fracture with routine healing; Z79.890 Hormone replacement therapy; Z79.82 Long term (current) use of aspirin; Z79.899 Other long term (current) drug therapy; Z87.01 Personal history of pneumonia (recurrent); Z90.710 Acquired absence of both cervix and uterus; Z87.440 Personal history of urinary (tract) infections; Z90.49 Acquired absence of other specified parts of digestive tract; Z92.21 Personal history of antineoplastic chemotherapy; Z88.5 Allergy status to narcotic agent; Z88.0 Allergy status to penicillin; Z88.2 Allergy status to sulfonamides; Z80.51 Family history of malignant neoplasm of kidney; Z82.49 Family history of ischemic heart disease and other diseases of the circulatory system
CPT/HCPCS: 36415; 71045; 76770; 80048; 80053; 81001; 82150; 82550; 82553; 83605; 83690; 83735; 85025; 86850; 86900; 86901; 86920; 87040; 87086; 87493; 93005; 94760; 96361; 96365; 99285

== ENCOUNTER 2017-09-20 15:41 | Inpatient (IN) | payer MEDICARE, BC ==
--- NOTE | 2017-09-20 16:56 | ED ---
Weakness HPI - General Chief complaint: Weakness Stated complaint: weakness Time Seen by Provider: 09/20/17 16:11 Source: patient, EMS Mode of arrival: EMS Limitations: no limitations - History of Present Illness Initial comments: 76-year-old female patient with a past medical history significant for multiple myeloma and recently neutropenic fever presents to the emergency department today for complaints of increased weakness. Patient has had to have multiple blood transfusions in the past most recent being 2 units a week and a half ago. Patient is also been having increased shortness of breath which they report generally comes with her low hemoglobin as well. Patient's Lasix was discontinued during her last visit, they report her legs have been more swollen. Patient has had low-grade temperatures around 99.5 despite use of Tylenol [id number] for pain. Patient denies any recent rash, chills, chest pain, abdominal pain, nausea, vomiting, diarrhea, constipation, back pain , numbness, tingling, dizziness, hematuria, dysuria, urinary urgency, urinary frequency, headache, visual changes, or any other complaints. - Related Data Home Medications Medication Instructions Recorded Confirmed Acetaminophen Tab [Tylenol] 1,000 mg PO Q6H PRN 01/04/14 09/10/17 Levothyroxine Sodium [Levoxyl] 25 mcg PO DAILY 01/04/14 09/10/17 Lactobacillus Acidophilus 2 tab PO BID 11/14/15 09/10/17 [Acidophilus] Aspirin 81 mg PO HS 09/05/16 09/10/17 Mirtazapine [Remeron] 7.5 mg PO HS 09/05/16 09/10/17 Ascorbic Acid [Vitamin C] 500 mg PO DAILY 06/26/17 09/10/17 Isosorbide Mononitrate [Isosorbide 15 mg PO DAILY 06/26/17 09/10/17 Mononitrate ER] Acyclovir [Zovirax] 200 mg PO BID 07/21/17 09/10/17 Multivits,Th W-Ca,Fe,Oth Min 1 tab PO DAILY 07/21/17 09/10/17 [Therapeutic M] ALPRAZolam [Xanax] 1 mg PO TID PRN 09/10/17 09/10/17 Ferrous Sulfate [Iron (65 MG 325 mg PO DAILY@1200 04/19/18 04/19/18 Elemental)] Lansoprazole [Prevacid] 30 mg PO DAILY 09/10/17 09/10/17 Nystatin 100,000 Unit/gm Powd 1 applic TOPICAL BID PRN 09/10/17 09/10/17 [Mycostatin Powder] Simvastatin 40 mg PO HS 09/10/17 09/10/17 Previous Rx's Medication Instructions Recorded Ipratropium-Albuterol Nebulize 3 ml INHALATION RT-Q4H PRN 07/10/17 [Duoneb 0.5 mg-3 mg/3 ml Soln] ampul.neb Metoprolol Tartrate [Lopressor] 50 mg PO BID tab 07/10/17 Fluconazole [Diflucan] 100 mg PO DAILY #14 tab 09/15/17 Allergies Allergy/AdvReac Type Severity Reaction Status Date / Time codeine Allergy Rapid Verified 09/10/17 13:24 Heart Rate Penicillins Allergy Rash/Hives Verified 09/10/17 13:24 Sulfa (Sulfonamide Allergy Dyspnea Verified 09/10/17 13:24 Antibiotics) Review of Systems ROS Statement: Those systems with pertinent positive or pertinent negative responses have been documented in the HPI. ROS Other: All systems not noted in ROS Statement are negative. Past Medical History Past Medical History: Cancer, Fibromyalgia, GERD/Reflux, Myocardial Infarction ( [place]), Osteoarthritis (OA), Pneumonia, Thyroid Disorder Additional Past Medical History / Comment(s): MULTIPLE MYLEMOMA STAGE 3, COMPRESSION FRACTURES. [place] - April Last Myocardial Infarction Date:: 05-24-2017 History of Any Multi-Drug Resistant Organisms: None Reported Past Surgical History: Bowel Resection, Heart Catheterization, Hysterectomy Additional Past Surgical History / Comment(s): cystocele,rectocele, rt upper chest power port Past Anesthesia/Blood Transfusion Reactions: Postoperative Nausea & Vomiting ( PONV) Additional Past Anesthesia/Blood Transfusion Reaction / Comment(s): pt states PONV only with general anesthesia. Pt. states she had OK on 05-24-18 while getting blood transfusion; pt. states she also had just started a new chemo medication which has since been discontinued Past Psychological History: Anxiety Smoking Status: Never smoker Past Alcohol Use History: None Reported Past Drug Use History: None Reported - Past Family History Father Family Medical History: Cancer Additional Family Medical History / Comment(s): KIDNEY CANCER Mother Family Medical History: Myocardial Infarction ([place]) General Exam Limitations: no limitations General appearance: alert, in no apparent distress, other (This is a well- developed, pale appearing 76-year-old female patient in no acute distress. Vital signs upon presentation are temperature 98.0F, pulse 92, respirations 16 , blood pressure 150/70, pulse ox 98% on room air.) Eye exam: Present: normal appearance, PERRL, EOMI, other (Pale conjunctiva). Absent: scleral icterus, conjunctival injection, periorbital swelling ENT exam: Present: normal exam, normal oropharynx, mucous membranes moist, other (Pale mucous membranes) Respiratory exam: Absent: normal lung sounds bilaterally (Crackles at the bilateral bases), respiratory distress, wheezes, rales, rhonchi, stridor Cardiovascular Exam: Present: regular rate, normal rhythm, normal heart sounds. Absent: systolic murmur, diastolic murmur, rubs, gallop, clicks GI/Abdominal exam: Present: soft, normal bowel sounds. Absent: distended, tenderness, guarding, rebound, rigid Extremities exam: Present: full ROM, normal capillary refill, other (Patient has 2+ pitting edema to her bilateral lower extremities.). Absent: normal inspection, tenderness, pedal edema, joint swelling, calf tenderness Neurological exam: Present: alert, oriented X3, CN II-XII intact, other ( Strength in all 4 extremities is 3/5) Psychiatric exam: Present: normal affect, normal mood Skin exam: Present: warm, dry, intact, pallor. Absent: normal color, rash Course Vital Signs 09/20/17 09/20/17 09/20/17 15:45 18:22 19:18 Temperature 98 F 99.4 F Pulse Rate 92 82 87 Respiratory 16 16 18 Rate Blood Pressure 150/70 159/72 156/59 O2 Sat by Pulse 98 98 96 Oximetry EKG Findings - EKG Comments: EKG Findings:: EKG obtained at 1935 shows normal sinus rhythm with a ventricular rate of 90, IN interval 136, QRS duration 76, QT 382, QTc 467. No evidence of ST elevation or depression. Medical Decision Making - Medical Decision Making 76-year-old female patient with past medical history significant for myeloma with anemia presents to the emergency department today for evaluation of increased weakness and dyspnea. Patient's Lasix was discontinued during her last visit she has crackles in the bilateral bases and pitting edema to her bilateral lower extremities. Skin is pale. Labs reviewed and showed a white blood cell count of 0.8, hemoglobin 7.1, platelet count of 16, sodium 136, troponin 0.037, urinalysis was negative for any acute infection. EKG shows normal sinus rhythm with no ST elevation or depression. I did discuss findings with the family, daughter reports that patient is unable to ambulate or health care for herself, states that they will be unable to care for at home. We did discuss the case with Dr. Carbajal who accepts admission. Dr. Sher patient's oncologist will be consulted. - Lab Data Result diagrams: 09/20/17 17:00 09/20/17 17:00 Lab Results 09/20/17 09/20/17 09/20/17 Range/Units 17:00 17:00 17:00 WBC 0.8 L* (3.8-10.6) k/uL RBC 2.49 L (3.80-5.40) m/uL Hgb 7.1 L (11.4-16.0) gm/dL Hct 22.0 L (34.0-46.0) % MCV 88.4 (80.0-100.0) fL MCH 28.4 (25.0-35.0) pg MCHC 32.2 (31.0-37.0) g/dL RDW 16.6 H (11.5-15.5) % Plt Count 16 L* (150-450) k/uL Differential Comment Manual Slide Review Performed Anisocytosis Slight Anisocytosis (manual) Present Sodium 136 L (137-145) mmol/L Potassium 4.8 (3.5-5.1) mmol/L Chloride 109 H (98-107) mmol/L Carbon Dioxide 15 L (22-30) mmol/L Anion Gap 12 mmol/L BUN 37 H (7-17) mg/dL Creatinine 3.31 H (0.52-1.04) mg/dL Est GFR (CKD-EPI)AfAm 15 (>60 ml/min/1.73 sqM) Est GFR (CKD-EPI)NonAf 13 (>60 ml/min/1.73 sqM) Glucose 91 (74-99) mg/dL Plasma Lactic Acid Sg (0.7-2.0) mmol/L Calcium 7.7 L (8.4-10.2) mg/dL Total Bilirubin 0.4 (0.2-1.3) mg/dL AST 37 H (14-36) U/L ALT 24 (9-52) U/L Alkaline Phosphatase 109 (38-126) U/L Total Creatine Kinase 29 L (30-135) U/L CK-MB (CK-2) 1.1 (0.0-2.4) ng/mL CK-MB (CK-2) Rel Index 3.8 Troponin I 0.037 H* (0.000-0.034) ng/mL Total Protein 6.3 (6.3-8.2) g/dL Albumin 2.7 L (3.5-5.0) g/dL Urine Color Urine Appearance (Clear) Urine pH (5.0-8.0) Ur Specific Baltic (1.001-1.035) Urine Protein (Negative) Urine Glucose (UA) (Negative) Urine Ketones (Negative) Urine Blood (Negative) Urine Nitrite (Negative) Urine Bilirubin (Negative) Urine Urobilinogen (<2.0) mg/dL Ur Leukocyte Esterase (Negative) Urine WBC (0-5) /hpf Ur Squamous Epith Cells (0-4) /hpf Blood Type Blood Type Recheck Antibody Screen Spec Expiration Date 09/20/17 09/20/17 09/20/17 Range/Units 17:00 17:00 18:17 WBC (3.8-10.6) k/uL RBC (3.80-5.40) m/uL Hgb (11.4-16.0) gm/dL Hct (34.0-46.0) % MCV (80.0-100.0) fL MCH (25.0-35.0) pg MCHC (31.0-37.0) g/dL RDW (11.5-15.5) % Plt Count (150-450) k/uL Differential Comment Manual Slide Review Anisocytosis Anisocytosis (manual) Sodium (137-145) mmol/L Potassium (3.5-5.1) mmol/L Chloride (98-107) mmol/L Carbon Dioxide (22-30) mmol/L Anion Gap mmol/L BUN (7-17) mg/dL Creatinine (0.52-1.04) mg/dL Est GFR (CKD-EPI)AfAm (>60 ml/min/1.73 sqM) Est GFR (CKD-EPI)NonAf (>60 ml/min/1.73 sqM) Glucose (74-99) mg/dL Plasma Lactic Acid Sg <0.5 L (0.7-2.0) mmol/L Calcium (8.4-10.2) mg/dL Total Bilirubin (0.2-1.3) mg/dL AST (14-36) U/L ALT (9-52) U/L Alkaline Phosphatase (38-126) U/L Total Creatine Kinase (30-135) U/L CK-MB (CK-2) (0.0-2.4) ng/mL CK-MB (CK-2) Rel Index Troponin I (0.000-0.034) ng/mL Total Protein (6.3-8.2) g/dL Albumin (3.5-5.0) g/dL Urine Color Light Yellow Urine Appearance Clear (Clear) Urine pH 6.5 (5.0-8.0) Ur Specific [place] 1.009 (1.001-1.035) Urine Protein 2+ H (Negative) Urine Glucose (UA) Negative (Negative) Urine Ketones Negative (Negative) Urine Blood Negative (Negative) Urine Nitrite Negative (Negative) Urine Bilirubin Negative (Negative) Urine Urobilinogen <2.0 (<2.0) mg/dL Ur Leukocyte Esterase Negative (Negative) Urine WBC 1 (0-5) /hpf Ur Squamous Epith Cells 1 (0-4) /hpf Blood Type O Positive Blood Type Recheck No Antibody Screen NEGATIVE Spec Expiration Date 09/23/2017 - 2300 - Radiology Data Radiology results: report reviewed, image reviewed Two-view x-ray of the chest shows no focal airspace opacity, pleural effusion, or pneumothorax seen. The cardiac silhouette size is within normal limits. The osseous structures are intact. There is decreased inspiratory volume. There is Mediport in the right chest. Impression by Dr. Bustos shows no acute cardiopulmonary process. Disposition Clinical Impression: Weakness, Dyspnea, Edema Disposition: ADMITTED IP TO THIS [facility] Condition: Serious Referrals: Sami Cardenas MD [Primary Care Provider] - 1-2 days Decision to Admit Reason: Admit from EC Decision Date: 09/20/17 Decision Time: 19:27
[2017-09-20 17:26] LABS: Anisocytosis Slight; HGB 7.1 gm/dL (11.4-16.0); MCH 28.4 pg (25.0-35.0); MCHC 32.2 g/dL (31.0-37.0); MCV 88.4 fL (80.0-100.0); Mean Platelet Volume 9.5; RBC 2.49 m/uL (3.80-5.40); RDW 16.6 % (11.5-15.5)
--- NOTE | 2017-09-20 17:34 | XR ---
EXAMINATION TYPE: XR chest 2V DATE OF EXAM: 09/20/2017 COMPARISON: 09/10/2017 HISTORY: Chest pain TECHNIQUE: Frontal and lateral views of the chest are obtained. FINDINGS: There is no focal air space opacity, pleural effusion, or pneumothorax seen. The cardiac silhouette size is within normal limits. The osseous structures are intact. There is decreased insp iratory volume. There is a mediport in the right chest. IMPRESSION: No acute cardiopulmonary process.
[2017-09-20 17:50] LABS: WBC 0.8 k/uL (3.8-10.6)
[2017-09-20 17:53] LABS: Creatine Kinase MB 1.1 ng/mL (0.0-2.4)
[2017-09-20 17:56] LABS: Troponin I 0.037 ng/mL (0.000-0.034)
[2017-09-20 17:59] LABS: Albumin 2.7 g/dL (3.5-5.0); Calcium 7.7 mg/dL (8.4-10.2); Potassium 4.8 mmol/L (3.5-5.1); Total Bilirubin 0.4 mg/dL (0.2-1.3); Total Protein 6.3 g/dL (6.3-8.2)
[2017-09-20 18:16] LABS: Anisocytosis (M) Present; Platelet Count 16 k/uL (150-450)
[2017-09-20 18:30] LABS: Appearance,Urine Clear (Clear); Bilirubin,Urine Negative (Negative); Blood,Urine Negative (Negative); Color,Urine Light Yellow; Glucose,Urine (UA) Negative (Negative); Ketones,Urine Negative (Negative); Leukocyte Esterase,Urine Negative (Negative); Nitrite,Urine Negative (Negative); PH, Urine 6.5 (5.0-8.0); Protein,Urine 2+ (Negative); Specific Gravity,Urine 1.009 (1.001-1.035); Squamous Epithelial Cell,Urine 1 /hpf (0-4); Urobilinogen,Urine <2.0 mg/dL (<2.0); WBC,Urine 1 /hpf (0-5)
[2017-09-20] MEDS ORDERED: NALOXONE 0.4 MG/ML 1 ML VIAL IV PRN (19:28)
[2017-09-20] MEDS ORDERED: ALPRAZolam 0.5 MG TAB PO STA (20:26)
[2017-09-20] MEDS ORDERED: METOPROLOL TARTRATE 50 MG TAB PO STA (20:26)
[2017-09-20] MEDS: SODIUM CHLORIDE 0.9% 1,000 ML IV SCH (20:27)
[2017-09-20] MEDS ORDERED: ACETAMINOPHEN TAB 500 MG TAB PO STA (20:27)
[2017-09-20] MEDS ORDERED: NYSTATIN 100,000 UNIT/GM POWD 15 GM TOPICAL PRN (23:22)
[2017-09-20] MEDS ORDERED: ALPRAZolam 0.5 MG TAB PO PRN (23:25)
[2017-09-21] MEDS: ATORVASTATIN 20 MG TAB PO SCH ×2 (00:22→22:47)
[2017-09-21] MEDS: ACYCLOVIR 200 MG CAP PO SCH ×3 (00:22→22:45)
[2017-09-21] MEDS: MIRTAZAPINE 15 MG TAB PO SCH ×2 (00:22→22:45)
[2017-09-21] MEDS: ASPIRIN 81 MG PO SCH ×2 (00:22→22:45)
[2017-09-21] MEDS: LACTOBACILLUS ACIDOPH & BULGAR 1 EACH PACKET PO SCH ×3 (00:23→22:45)
[2017-09-21] MEDS ORDERED: IPRATROPIUM-ALBUTEROL 3 ML NEB INHALATION PRN (08:46)
[2017-09-21] MEDS: ACETAMINOPHEN TAB 500 MG TAB PO PRN ×2 (09:34→18:03)
[2017-09-21] MEDS: ALPRAZolam 1 MG TAB PO PRN ×2 (09:35→18:03)
[2017-09-21 09:46] LABS: Albumin 2.8 g/dL (3.5-5.0); Calcium 7.5 mg/dL (8.4-10.2); Potassium 4.7 mmol/L (3.5-5.1); Total Bilirubin 0.4 mg/dL (0.2-1.3); Total Protein 6.7 g/dL (6.3-8.2)
[2017-09-21] MEDS: ASCORBIC ACID 500 MG TAB PO SCH (09:53)
[2017-09-21] MEDS: METOPROLOL TARTRATE 50 MG TAB PO SCH ×2 (09:53→22:45)
[2017-09-21] MEDS: PANTOPRAZOLE 40 MG TABLET PO SCH (09:53)
[2017-09-21] MEDS: FLUCONAZOLE 100 MG TAB PO SCH (09:53)
[2017-09-21] MEDS: LEVOTHYROXINE 25 MCG TAB PO SCH (09:53)
[2017-09-21] MEDS: ISOSORBIDE MONONITRATE ER 15 MG TAB PO SCH (09:53)
[2017-09-21 09:59] LABS: Anisocytosis Slight; HGB 8.3 gm/dL (11.4-16.0); MCH 29.3 pg (25.0-35.0); MCHC 32.1 g/dL (31.0-37.0); MCV 91.5 fL (80.0-100.0); Mean Platelet Volume 8.6; RBC 2.84 m/uL (3.80-5.40); RDW 16.7 % (11.5-15.5)
[2017-09-21 10:36] LABS: Monocytes # (M) 0.03 k/uL (0-1.0); Nucleated Red Blood Cells 0 /100 WBC (0-0); Total Cells Counted 100
[2017-09-21 10:37] LABS: Hypochromasia (M) Present; Poikilocytosis (M) Present
[2017-09-21 10:38] LABS: Platelet Count 25 k/uL (150-450)
[2017-09-21 10:51] LABS: Eosinophils # (M) 0.01 k/uL (0-0.7); Lymphocytes # (M) 0.54 k/uL (1.0-4.8); Neutrophils % (M) 45 %
[2017-09-21] MEDS: FERROUS SULFATE 325 MG TAB PO SCH (12:54)
[2017-09-21] MEDS: MULTIVITAMINS, THERA 1 EACH TAB PO SCH (12:54)
--- NOTE | 2017-09-21 16:26 | P.CONS ---
History of Present Illness - Reason for Consult Consult date: 09/21/17 Pancytopenia, multiple myeloma Requesting physician: Ladonna Reeves - Chief Complaint Weakness, difficulty in breathing - History of Present Illness Please see medical consult dated 09/10/2017 for malignancy history. This is unfortunately another admission for Mrs. Rivers, a very pleasant patient well known to our service. She states that she had done rather well recently when she was discharged to rehabilitation but, as soon as she went home she progressively became weaker, due to inability to get around as well with her wheeled walker. She has returned to the hospital for progressive weakness, shortness of breath and severe BLE swelling. Patient denies fevers, oral irritation, she tolerates some oral intake without nausea or vomiting, no chest pain or palpitations, abdominal pain, distention, dysuria, hematuria, diarrhea or constipation, bleeding, bilateral lower extremity swelling has resolved in about the last 24 hours. Review of Systems 10 point review of systems is as stated in HPI Past Medical History Past Medical History: Cancer, Fibromyalgia, GERD/Reflux, Myocardial Infarction ( [place]), Osteoarthritis (OA), Pneumonia, Thyroid Disorder Additional Past Medical History / Comment(s): MULTIPLE MYLEMOMA STAGE 3, COMPRESSION FRACTURES. [place] - April Last Myocardial Infarction Date:: 05-24-2017 History of Any Multi-Drug Resistant Organisms: None Reported Past Surgical History: Bowel Resection, Heart Catheterization, Hysterectomy Additional Past Surgical History / Comment(s): cystocele,rectocele, rt upper chest power port Past Anesthesia/Blood Transfusion Reactions: Postoperative Nausea & Vomiting ( PONV) Additional Past Anesthesia/Blood Transfusion Reaction / Comm: pt states PONV only with general anesthesia. Pt. states she had VA on 05-24-18 while getting blood transfusion; pt. states she also had just started a new chemo medication which has since been discontinued Past Psychological History: Anxiety Additional Psychological History / Comment(s): pt is lives at home uses walker. 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 Smoking Status: Never smoker Past Alcohol Use History: None Reported Additional Past Alcohol Use History / Comment(s): Patient states she's never been a smoker, no medical marijuana or marijuana use, no alcohol use. patient is currently living at [facility] for rehab . Past Drug Use History: None Reported - Past Family History Father Family Medical History: Cancer Additional Family Medical History / Comment(s): KIDNEY CANCER Mother Family Medical History: Myocardial Infarction ([place]) Medications and Allergies Home Medications Medication Instructions Recorded Confirmed Type Acetaminophen Tab [Tylenol] 1,000 mg PO Q6H PRN 01/04/14 09/21/17 History Levothyroxine Sodium [Levoxyl] 25 mcg PO DAILY 01/04/14 09/21/17 History Lactobacillus Acidophilus 2 tab PO BID 11/14/15 09/21/17 History [Acidophilus] Aspirin 81 mg PO HS 09/05/16 09/21/17 History Mirtazapine [Remeron] 7.5 mg PO HS 09/05/16 09/21/17 History Ascorbic Acid [Vitamin C] 500 mg PO DAILY 06/26/17 09/21/17 History Isosorbide Mononitrate [Isosorbide 15 mg PO DAILY 06/26/17 09/21/17 History Mononitrate ER] Ipratropium-Albuterol Nebulize 3 ml INHALATION RT-Q4H PRN 07/10/17 09/21/17 Rx [Duoneb 0.5 mg-3 mg/3 ml Soln] ampul.neb Metoprolol Tartrate [Lopressor] 50 mg PO BID tab 07/10/17 09/21/17 Rx Acyclovir [Zovirax] 200 mg PO BID 07/21/17 09/21/17 History Multivits,Th W-Ca,Fe,Oth Min 1 tab PO DAILY 07/21/17 09/21/17 History [Therapeutic M] ALPRAZolam [Xanax] 1 mg PO TID PRN 09/10/17 09/21/17 History Ferrous Sulfate [Iron (65 MG 325 mg PO DAILY@1200 09/10/17 09/21/17 History Elemental)] Lansoprazole [Prevacid] 30 mg PO DAILY 09/10/17 09/21/17 History Nystatin 100,000 Unit/gm Powd 1 applic TOPICAL BID PRN 09/10/17 09/21/17 History [Mycostatin Powder] Simvastatin 40 mg PO HS 09/10/17 09/21/17 History Fluconazole [Diflucan] 100 mg PO DAILY #14 tab 09/15/17 09/21/17 Rx Allergies Allergy/AdvReac Type Severity Reaction Status Date / Time codeine Allergy Rapid Verified 09/21/17 09:18 Heart Rate Penicillins Allergy Rash/Hives Verified 09/21/17 09:18 Sulfa (Sulfonamide Allergy Dyspnea Verified 09/21/17 09:18 Antibiotics) Physical Exam Vitals: Vital Signs Temp Pulse Pulse Resp BP BP Pulse Ox 09/21/17 15:15 97.1 F L 86 16 133/72 97 09/21/17 07:20 97.8 F 96 16 198/94 99 09/20/17 22:41 98.1 F 82 18 145/68 96 09/20/17 21:27 99.5 F 87 18 140/59 98 09/20/17 20:36 99.0 F 98 18 163/80 99 09/20/17 19:18 99.4 F 87 18 156/59 96 09/20/17 18:22 82 16 159/72 98 Intake and Output 09/21/17 09/21/17 09/21/17 06:59 14:59 22:59 Intake Total 560 Balance 560 Intake: Oral 560 Other: Voiding Method Bedside Commode Bedside Commode # Voids 1 2 - Constitutional General appearance: cooperative, no acute distress, obese - EENT Eyes: EOMI ENT: normal oropharynx - Neck Neck: no lymphadenopathy - Respiratory Respiratory: bilateral: diminished - Cardiovascular Heart sounds: normal: S1, S2 leg Peripheral Edema: bilateral: Trace - Gastrointestinal General gastrointestinal: no absent bowel sounds, no decreased bowel sounds, no distended, no hepatomegaly, no hyperactive bowel sounds, normal bowel sounds, no organomegaly, no rigid, no scaphoid, soft, no splenomegaly, no tenderness, no umbilical hernia, no ventral hernia - Integumentary Integumentary: pale - Neurologic Neurologic: CNII-XII intact - Musculoskeletal Musculoskeletal: generalized weakness - Psychiatric Psychiatric: A&O x's 3, appropriate affect, intact judgment & insight Results CBC & Chem 7: 09/21/17 08:00 09/21/17 08:00 Labs: Abnormal Lab Results - Last 24 Hours (Table) 09/20/17 09/20/17 09/20/17 Range/Units 17:00 17:00 17:00 WBC 0.8 L* (3.8-10.6) k/uL RBC 2.49 L (3.80-5.40) m/uL Hgb 7.1 L (11.4-16.0) gm/dL Hct 22.0 L (34.0-46.0) % RDW 16.6 H (11.5-15.5) % Plt Count 16 L* (150-450) k/uL Neutrophils # (Manual) (1.3-7.7) k/uL Lymphocytes # (Manual) (1.0-4.8) k/uL Sodium 136 L (137-145) mmol/L Chloride 109 H (98-107) mmol/L Carbon Dioxide 15 L (22-30) mmol/L BUN 37 H (7-17) mg/dL Creatinine 3.31 H (0.52-1.04) mg/dL Plasma Lactic Acid Sg (0.7-2.0) mmol/L Calcium 7.7 L (8.4-10.2) mg/dL AST 37 H (14-36) U/L Total Creatine Kinase 29 L (30-135) U/L Troponin I 0.037 H* (0.000-0.034) ng/mL Albumin 2.7 L (3.5-5.0) g/dL Urine Protein (Negative) 09/20/17 09/20/17 09/21/17 Range/Units 17:00 18:17 08:00 WBC 1.0 L* (3.8-10.6) k/uL RBC 2.84 L (3.80-5.40) m/uL Hgb 8.3 L (11.4-16.0) gm/dL Hct 26.0 L (34.0-46.0) % RDW 16.7 H (11.5-15.5) % Plt Count 25 L* D (150-450) k/uL Neutrophils # (Manual) 0.40 L (1.3-7.7) k/uL Lymphocytes # (Manual) 0.54 L (1.0-4.8) k/uL Sodium (137-145) mmol/L Chloride (98-107) mmol/L Carbon Dioxide (22-30) mmol/L BUN (7-17) mg/dL Creatinine (0.52-1.04) mg/dL Plasma Lactic Acid Sg <0.5 L (0.7-2.0) mmol/L Calcium (8.4-10.2) mg/dL AST (14-36) U/L Total Creatine Kinase (30-135) U/L Troponin I (0.000-0.034) ng/mL Albumin (3.5-5.0) g/dL Urine Protein 2+ H (Negative) 09/21/17 Range/Units 08:00 WBC (3.8-10.6) k/uL RBC (3.80-5.40) m/uL Hgb (11.4-16.0) gm/dL Hct (34.0-46.0) % RDW (11.5-15.5) % Plt Count (150-450) k/uL Neutrophils # (Manual) (1.3-7.7) k/uL Lymphocytes # (Manual) (1.0-4.8) k/uL Sodium (137-145) mmol/L Chloride 110 H (98-107) mmol/L Carbon Dioxide 16 L (22-30) mmol/L BUN 35 H (7-17) mg/dL Creatinine 3.32 H (0.52-1.04) mg/dL Plasma Lactic Acid Sg (0.7-2.0) mmol/L Calcium 7.5 L (8.4-10.2) mg/dL AST (14-36) U/L Total Creatine Kinase (30-135) U/L Troponin I (0.000-0.034) ng/mL Albumin 2.8 L (3.5-5.0) g/dL Urine Protein (Negative) Chest x-ray: report reviewed Assessment and Plan (1) Multiple myeloma Narrative/Plan: We had a long discussion today about patient's plan to use an experimental drug for treatment. She is leery to initiate therapy because it how weak she feels. She would like to attempt rehabilitation again. We discussed the options of care being proceeding forward with trying this medication. We discussed also the potential that the drug may not work on that the drug can cause side effects. We talked about focusing on quality of life versus quantity of life. I encouraged patient to speak with her about her concerns and what they would like to have as goals for care, no matter what that care is. I reinforced with the patient that no matter what her decisions were we would over support her and always be there to provide her care. I will follow up with patient in the morning. Current Visit: Yes Status: Chronic Priority: High Code(s): C90.00 - MULTIPLE MYELOMA NOT HAVING ACHIEVED REMISSION SNOMED Code(s): 736975686 (2) Pancytopenia Narrative/Plan: No acute intervention for pancytopenia. This is due to patient's disease process. Current Visit: Yes Status: Chronic Priority: Medium Code(s): D61.818 - OTHER PANCYTOPENIA SNOMED Code(s): 447899995
[2017-09-21] MEDS ORDERED: MAGNESIUM HYDROXIDE 2,400 MG/10 ML CUP PO PRN (19:24)
--- NOTE | 2017-09-21 22:07 | P.HPIM ---
History of Present Illness H&P Date: 09/21/17 Chief Complaint: Generalized weakness. This is a history and physical on a 76-year-old white female with known history of multiple myeloma who was recently discharged for neutropenic fever. She is an relating in the halls appropriately and felt good enough to go home but over the last several days she is becoming recurrently week. She has an underlying history of neutropenic fever and neutropenia with thrombocytopenia.The patient seems significantly weak today. Review of Systems Constitutional: Denies chills, Denies fever Eyes: denies blurred vision, denies pain Ears, nose, mouth and throat: Denies headache, Denies sore throat Gastrointestinal: Denies abdominal pain, Denies diarrhea, Denies nausea, Denies vomiting Musculoskeletal: Reports gait dysfunction, Denies myalgias Past Medical History Past Medical History: Cancer, Fibromyalgia, GERD/Reflux, Myocardial Infarction ( [place]), Osteoarthritis ([place]), Pneumonia, Thyroid Disorder Additional Past Medical History / Comment(s): MULTIPLE MYLEMOMA STAGE 3, COMPRESSION FRACTURES. [place] - April Last Myocardial Infarction Date:: 05-24-2017 History of Any Multi-Drug Resistant Organisms: None Reported Past Surgical History: Bowel Resection, Heart Catheterization, Hysterectomy Additional Past Surgical History / Comment(s): cystocele,rectocele, rt upper chest power port Past Anesthesia/Blood Transfusion Reactions: Postoperative Nausea & Vomiting ( PONV) Additional Past Anesthesia/Blood Transfusion Reaction / Comment(s): pt states PONV only with general anesthesia. Pt. states she had [place] on 05-24-18 while getting blood transfusion; pt. states she also had just started a new chemo medication which has since been discontinued Past Psychological History: Anxiety Additional Psychological History / Comment(s): pt is lives at home uses walker. 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 Smoking Status: Never smoker Past Alcohol Use History: None Reported Additional Past Alcohol Use History / Comment(s): Patient states she's never been a smoker, no medical marijuana or marijuana use, no alcohol use. patient is currently living at [facility] for rehab . Past Drug Use History: None Reported - Past Family History Father Family Medical History: Cancer Additional Family Medical History / Comment(s): KIDNEY CANCER Mother Family Medical History: Myocardial Infarction ([place]) Medications and Allergies Home Medications Medication Instructions Recorded Confirmed Type Acetaminophen Tab [Tylenol] 1,000 mg PO Q6H PRN 01/04/14 09/21/17 History Levothyroxine Sodium [Levoxyl] 25 mcg PO DAILY 01/04/14 09/21/17 History Lactobacillus Acidophilus 2 tab PO BID 11/14/15 09/21/17 History [Acidophilus] Aspirin 81 mg PO HS 09/05/16 09/21/17 History Mirtazapine [Remeron] 7.5 mg PO HS 09/05/16 09/21/17 History Ascorbic Acid [Vitamin C] 500 mg PO DAILY 06/26/17 09/21/17 History Isosorbide Mononitrate [Isosorbide 15 mg PO DAILY 06/26/17 09/21/17 History Mononitrate ER] Ipratropium-Albuterol Nebulize 3 ml INHALATION RT-Q4H PRN 07/10/17 09/21/17 Rx [Duoneb 0.5 mg-3 mg/3 ml Soln] ampul.neb Metoprolol Tartrate [Lopressor] 50 mg PO BID tab 07/10/17 09/21/17 Rx Acyclovir [Zovirax] 200 mg PO BID 07/21/17 09/21/17 History Multivits,Th W-Ca,Fe,Oth Min 1 tab PO DAILY 07/21/17 09/21/17 History [Therapeutic M] ALPRAZolam [Xanax] 1 mg PO TID PRN 09/10/17 09/21/17 History Ferrous Sulfate [Iron (65 MG 325 mg PO DAILY@1200 09/10/17 09/21/17 History Elemental)] Lansoprazole [Prevacid] 30 mg PO DAILY 09/10/17 09/21/17 History Nystatin 100,000 Unit/gm Powd 1 applic TOPICAL BID PRN 09/10/17 09/21/17 History [Mycostatin Powder] Simvastatin 40 mg PO HS 09/10/17 09/21/17 History Fluconazole [Diflucan] 100 mg PO DAILY #14 tab 09/15/17 09/21/17 Rx Allergies Allergy/AdvReac Type Severity Reaction Status Date / Time codeine Allergy Rapid Verified 09/21/17 09:18 Heart Rate Penicillins Allergy Rash/Hives Verified 09/21/17 09:18 Sulfa (Sulfonamide Allergy Dyspnea Verified 09/21/17 09:18 Antibiotics) Physical Exam Vitals: Vital Signs Temp Pulse Resp BP Pulse Ox 09/21/17 17:06 86 16 09/21/17 15:15 97.1 F L 86 16 133/72 97 09/21/17 07:20 97.8 F 96 16 198/94 99 09/20/17 22:41 98.1 F 82 18 145/68 96 Intake and Output 09/21/17 09/21/17 09/21/17 06:59 14:59 22:59 Intake Total 560 Balance 560 Intake: Oral 560 Other: Voiding Method Bedside Commode Bedside Commode Bedside Commode # Voids 1 2 3 Weight 63.503 kg - EENT Eyes: EOMI - Neck Neck: no lymphadenopathy - Respiratory Respiratory: bilateral: CTA - Cardiovascular Rhythm: regular Heart sounds: normal: S1, S2 Abnormal Heart Sounds: no S3 Gallop - Gastrointestinal General gastrointestinal: soft, no tenderness - Neurologic Neurologic: CNII-XII intact - Musculoskeletal Musculoskeletal: generalized weakness Results CBC & Chem 7: 09/21/17 08:00 09/21/17 08:00 Labs: Abnormal Lab Results - Last 24 Hours (Table) 09/21/17 09/21/17 Range/Units 08:00 08:00 WBC 1.0 L* (3.8-10.6) k/uL RBC 2.84 L (3.80-5.40) m/uL Hgb 8.3 L (11.4-16.0) gm/dL Hct 26.0 L (34.0-46.0) % RDW 16.7 H (11.5-15.5) % Plt Count 25 L* D (150-450) k/uL Neutrophils # (Manual) 0.40 L (1.3-7.7) k/uL Lymphocytes # (Manual) 0.54 L (1.0-4.8) k/uL Chloride 110 H (98-107) mmol/L Carbon Dioxide 16 L (22-30) mmol/L BUN 35 H (7-17) mg/dL Creatinine 3.32 H (0.52-1.04) mg/dL Calcium 7.5 L (8.4-10.2) mg/dL Albumin 2.8 L (3.5-5.0) g/dL Microbiology - Last 24 Hours (Table) 09/20/17 17:00 Blood Culture - Preliminary Blood No Growth after 24 hours Thrombosis Risk Factor Assmnt - Choose All That Apply Each Factor Represents 1 point: Obesity (BMI >25) Each Risk Factor Represents 2 Points: Age 61-74 years, Malignancy Other congenital or acquired thrombophilia - If yes, enter type in comment: No Thrombosis Risk Factor Assessment Total Risk Factor Score: 5 Thrombosis Risk Factor Assessment Level: High Risk Assessment and Plan (1) Dyspnea Current Visit: Yes Status: Acute Code(s): R06.00 - DYSPNEA, UNSPECIFIED SNOMED Code(s): 139775502 (2) Edema Current Visit: Yes Status: Acute Code(s): R60.9 - EDEMA, UNSPECIFIED SNOMED Code(s): 682843045 (3) Weakness Current Visit: Yes Status: Acute Priority: High Code(s): R53.1 - WEAKNESS SNOMED Code(s): 31195930 (4) Multiple myeloma Current Visit: Yes Status: Chronic Priority: High Code(s): C90.00 - MULTIPLE MYELOMA NOT HAVING ACHIEVED REMISSION SNOMED Code(s): 942445607 (5) Neutropenia Current Visit: No Status: Acute Code(s): D70.9 - NEUTROPENIA, UNSPECIFIED SNOMED Code(s): 965177940 (6) Thrombocytopenia Current Visit: No Status: Acute Code(s): D69.6 - THROMBOCYTOPENIA, UNSPECIFIED SNOMED Code(s): 725096221 Plan: Appreciate oncology input. New preop check CBC and CMP in a.m. New. Start PT/ OT. Reconcile home medications per patient. Otherwise, at this time she is a full code. Discharge planning to be instituted for probable transfer to [facility]. Prognosis is guarded secondary to advancing age and multiple comorbidities. Time with Patient: Greater than 30
[2017-09-22] MEDS: SODIUM CHLORIDE 0.9% 1,000 ML IV SCH ×2 (06:28→20:53)
[2017-09-22] MEDS: LEVOTHYROXINE 25 MCG TAB PO SCH (06:28)
[2017-09-22] MEDS: ACYCLOVIR 200 MG CAP PO SCH ×2 (08:16→20:51)
[2017-09-22] MEDS: METOPROLOL TARTRATE 50 MG TAB PO SCH ×3 (08:17→20:51)
[2017-09-22] MEDS: FLUCONAZOLE 100 MG TAB PO SCH (08:17)
[2017-09-22] MEDS: PANTOPRAZOLE 40 MG TABLET PO SCH (08:17)
[2017-09-22] MEDS: ALPRAZolam 1 MG TAB PO PRN (08:17)
[2017-09-22] MEDS: ACETAMINOPHEN TAB 500 MG TAB PO PRN (08:17)
[2017-09-22] MEDS: ISOSORBIDE MONONITRATE ER 15 MG TAB PO SCH (08:17)
[2017-09-22] MEDS: ASCORBIC ACID 500 MG TAB PO SCH (08:17)
[2017-09-22] MEDS: LACTOBACILLUS ACIDOPH & BULGAR 1 EACH PACKET PO SCH ×2 (08:17→20:51)
[2017-09-22] MEDS ORDERED: ONDANSETRON 4 MG/2 ML VIAL IVP PRN (10:08)
[2017-09-22] MEDS: FERROUS SULFATE 325 MG TAB PO SCH (11:37)
[2017-09-22] MEDS: MULTIVITAMINS, THERA 1 EACH TAB PO SCH (11:37)
--- NOTE | 2017-09-22 11:50 | P.PN ---
Subjective Progress Note Date: 09/22/17 Principal diagnosis: weakness, SAVANA Pt continues to be profoundly weak, she is on O2, she vomited once this AM, feeling nauseated today, breathing is comfortable at rest, gets winded with too much activity, gets to bedside commode with 1-2 person assist. Denies pain. Objective - Vital Signs Vital signs: Vital Signs Temp 98.1 F 09/22/17 07:15 Pulse 100 09/22/17 07:15 Resp 16 09/22/17 07:15 BP 172/84 09/22/17 07:15 Pulse Ox 95 09/22/17 09:30 Intake & Output 09/21/17 09/22/17 09/22/17 18:59 06:59 18:59 Intake Total 560 250 Balance 560 250 Weight 63.503 kg Intake: Oral 560 250 Other: Voiding Method Bedside Commode Bedside Commode Bedside Commode # Voids 3 3 - Constitutional General appearance: Present: cooperative, no acute distress, obese - EENT Eyes: Present: anicteric sclerae - Respiratory Respiratory: bilateral: CTA, diminished - Cardiovascular Heart sounds: normal: S1, S2 - Gastrointestinal General gastrointestinal: Present: normal bowel sounds, soft - Integumentary Integumentary: Present: pale - Neurologic Neurologic: Present: CNII-XII intact - Musculoskeletal Musculoskeletal: Present: generalized weakness - Psychiatric Psychiatric: Present: A&O x's 3, appropriate affect, intact judgment & insight - Labs CBC & Chem 7: 09/21/17 08:00 09/21/17 08:00 Labs: Microbiology - Last 24 Hours (Table) 09/20/17 17:00 Blood Culture - Preliminary Blood No Growth after 24 hours Assessment and Plan (1) Multiple myeloma Narrative/Plan: We reviewed venetoclex again today. We discussed pt goals, diagnosis, prognosis and concerns about performance status. Current Visit: Yes Status: Chronic Priority: High Code(s): C90.00 - MULTIPLE MYELOMA NOT HAVING ACHIEVED REMISSION SNOMED Code(s): 804885313 (2) Pancytopenia Narrative/Plan: Disease related pancytopenia, stable CBC today, no acute intervention for pancytopenia. Current Visit: Yes Status: Chronic Priority: Medium Code(s): D61.818 - OTHER PANCYTOPENIA SNOMED Code(s): 511570698 Plan: We discussed EFC, rehab, comfort care at home vs ECF, all questions answered. For now pt would like to return to [facility] and try rehab. She will transition to comfort measures/hospice based on how she does with rehab. Plan is for f/u with Dr. Sher in a few weeks. Pt agreeable with plan. Pt ok to be discharged to [facility] from a Hem/Onc standpoint once cleared by Attending and Consulting Physicians. Time with Patient: Greater than 30 (counseling and coordinating care)
--- NOTE | 2017-09-22 13:10 | P.PN ---
Subjective Progress Note Date: 09/22/17 Objective - Vital Signs Vital signs: Vital Signs Temp 98.1 F 09/22/17 07:15 Pulse 100 09/22/17 07:15 Resp 16 09/22/17 07:15 BP 172/84 09/22/17 07:15 Pulse Ox 95 09/22/17 09:30 Intake & Output 09/21/17 09/22/17 09/22/17 18:59 06:59 18:59 Intake Total 560 250 Balance 560 250 Weight 63.503 kg Intake: Oral 560 250 Other: Voiding Method Bedside Commode Bedside Commode Bedside Commode # Voids 3 3 # Bowel Movements 1 - Constitutional General appearance: Present: average body habitus - EENT Eyes: Absent: abnormal pupil - Neck Neck: Absent: lymphadenopathy - Respiratory Respiratory: bilateral: CTA - Cardiovascular Heart rate: 100 Rhythm: regular - Gastrointestinal General gastrointestinal: Present: soft. Absent: tenderness - Neurologic Neurologic: Present: CNII-XII intact. Absent: focal deficits - Labs CBC & Chem 7: 09/21/17 08:00 09/21/17 08:00 Labs: Microbiology - Last 24 Hours (Table) 09/20/17 17:00 Blood Culture - Preliminary Blood No Growth after 24 hours Assessment and Plan (1) Dyspnea Current Visit: Yes Status: Acute Code(s): R06.00 - DYSPNEA, UNSPECIFIED SNOMED Code(s): 630848115 (2) Edema Current Visit: Yes Status: Acute Code(s): R60.9 - EDEMA, UNSPECIFIED SNOMED Code(s): 522154357 (3) Weakness Current Visit: Yes Status: Acute Priority: High Code(s): R53.1 - WEAKNESS SNOMED Code(s): 78991475 (4) Multiple myeloma Current Visit: Yes Status: Chronic Priority: High Code(s): C90.00 - MULTIPLE MYELOMA NOT HAVING ACHIEVED REMISSION SNOMED Code(s): 084506084 (5) Neutropenia Current Visit: No Status: Acute Code(s): D70.9 - NEUTROPENIA, UNSPECIFIED SNOMED Code(s): 074287589 (6) Thrombocytopenia Current Visit: No Status: Acute Code(s): D69.6 - THROMBOCYTOPENIA, UNSPECIFIED SNOMED Code(s): 053912730 Plan: Go ahead and restart low-dose Lasix for pedal edema which is mostly dependent in nature. Watch renal function closely. Otherwise, ECF placement. Titrate Xanax dose to lower secondary to slurred speech after medications being given. Multiple comorbidities to reassess. Check CBC and CMP in a.m. Time with Patient: Greater than 30
[2017-09-22 14:07] VITALS: BMI 31.4
[2017-09-22 14:44] LABS: Anisocytosis Slight; HCT 24.3 % (34.0-46.0); HGB 7.9 gm/dL (11.4-16.0); Hypochromasia Moderate; MCHC 32.7 g/dL (31.0-37.0); MCV 91.7 fL (80.0-100.0); RBC 2.65 m/uL (3.80-5.40); RDW 16.3 % (11.5-15.5)
[2017-09-22 15:03] LABS: Albumin 2.8 g/dL (3.5-5.0); Calcium 7.9 mg/dL (8.4-10.2); Total Bilirubin 0.5 mg/dL (0.2-1.3); Total Protein 6.7 g/dL (6.3-8.2)
[2017-09-22 15:08] LABS: WBC 0.8 k/uL (3.8-10.6)
[2017-09-22 15:11] LABS: Potassium 5.5 mmol/L (3.5-5.1)
[2017-09-22 15:23] LABS: Poikilocytosis (M) Present
[2017-09-22 15:24] LABS: Platelet Count 16 k/uL (150-450)
[2017-09-22] MEDS ORDERED: LACTULOSE 20 GM/30 ML CUP PO ONE (18:37)
[2017-09-22] MEDS: ATORVASTATIN 20 MG TAB PO SCH (20:51)
[2017-09-22] MEDS: ASPIRIN 81 MG PO SCH (20:51)
[2017-09-22] MEDS: MIRTAZAPINE 15 MG TAB PO SCH (20:51)
[2017-09-23] MEDS: LEVOTHYROXINE 25 MCG TAB PO SCH (06:14)
[2017-09-23] MEDS: ASCORBIC ACID 500 MG TAB PO SCH (08:42)
[2017-09-23] MEDS: METOPROLOL TARTRATE 50 MG TAB PO SCH ×3 (08:42→21:38)
[2017-09-23] MEDS: LACTOBACILLUS ACIDOPH & BULGAR 1 EACH PACKET PO SCH ×2 (08:42→21:36)
[2017-09-23] MEDS: ISOSORBIDE MONONITRATE ER 15 MG TAB PO SCH (08:42)
[2017-09-23] MEDS: FLUCONAZOLE 100 MG TAB PO SCH (08:42)
[2017-09-23] MEDS: ACYCLOVIR 200 MG CAP PO SCH ×2 (08:42→21:37)
[2017-09-23] MEDS: PANTOPRAZOLE 40 MG TABLET PO SCH (08:42)
--- NOTE | 2017-09-23 11:50 | P.PN ---
Subjective Progress Note Date: 09/23/17 Principal diagnosis: weakness, SAVANA Patient seen today in follow-up. She states that she had diarrhea all night long, but, there was some form to it. She denied having any rectal pain, some mild abdominal discomfort, she has not had a bowel movement now for about 2 hours. She is requiring nausea medication but, only if she drinks protein drinks, no fevers, denies palpitations, shortness of breath or cough, she requires assistance to get to a bedside commode. Objective - Vital Signs Vital signs: Vital Signs Temp 98.5 F 09/23/17 07:40 Pulse 112 H 09/23/17 07:40 Resp 16 09/23/17 07:40 BP 192/92 09/23/17 07:40 Pulse Ox 93 L 09/23/17 07:40 Intake & Output 09/22/17 09/23/17 09/23/17 18:59 06:59 18:59 Weight 63.503 kg Other: Voiding Method Bedside Commode Bedside Commode Bedside Commode # Voids 2 # Bowel Movements 1 6 - Constitutional General appearance: Present: cooperative, mild distress, obese - EENT Eyes: Present: anicteric sclerae - Respiratory Respiratory: bilateral: CTA (poor inspiratory effort) - Cardiovascular Rhythm: regular Heart sounds: normal: S1, S2 - Peripheral edema leg Peripheral Edema: bilateral: Trace - Gastrointestinal General gastrointestinal: Present: normal bowel sounds, soft - Integumentary Integumentary: Present: pale - Musculoskeletal Musculoskeletal: Present: generalized weakness - Psychiatric Psychiatric: Present: A&O x's 3, appropriate affect, intact judgment & insight - Labs CBC & Chem 7: 09/22/17 13:55 09/22/17 13:55 Labs: Abnormal Lab Results - Last 24 Hours (Table) 09/22/17 09/22/17 Range/Units 13:55 13:55 WBC 0.8 L* (3.8-10.6) k/uL RBC 2.65 L (3.80-5.40) m/uL Hgb 7.9 L (11.4-16.0) gm/dL Hct 24.3 L (34.0-46.0) % RDW 16.3 H (11.5-15.5) % Plt Count 16 L* (150-450) k/uL Potassium 5.5 H (3.5-5.1) mmol/L Chloride 110 H (98-107) mmol/L Carbon Dioxide 16 L (22-30) mmol/L BUN 36 H (7-17) mg/dL Creatinine 3.00 H (0.52-1.04) mg/dL Glucose 108 H (74-99) mg/dL Calcium 7.9 L (8.4-10.2) mg/dL AST 39 H (14-36) U/L Albumin 2.8 L (3.5-5.0) g/dL Microbiology - Last 24 Hours (Table) 09/20/17 17:00 Blood Culture - Preliminary Blood No Growth after 48 hours Assessment and Plan (1) Multiple myeloma Narrative/Plan: Patient has been provided information for venetoclax, the medication that is being considered for treatment of her myeloma. Patient had no further questions at this time about it. Patient is wanting to do some rehab before she considers going further with any treatment for her myeloma. Patient has also consider the possibility of just remaining comfortable. Patient states that she will go to rehab and follow-up with Dr. Sher in a couple weeks, that appointment is in the chart. No current treatment for myeloma. Current Visit: Yes Status: Chronic Priority: High Code(s): C90.00 - MULTIPLE MYELOMA NOT HAVING ACHIEVED REMISSION SNOMED Code(s): 017250018 (2) Pancytopenia Narrative/Plan: No acute intervention for patient's anemia, thrombocytopenia or leukopenia. Patient's counts are low as a result of her disease and extensive history of treatment. Current Visit: Yes Status: Chronic Priority: Medium Code(s): D61.818 - OTHER PANCYTOPENIA SNOMED Code(s): 748883735 Plan: Pt ok to be discharged to [facility] from a Hem/Onc standpoint once cleared by Attending and Consulting Physicians.
[2017-09-23] MEDS: MULTIVITAMINS, THERA 1 EACH TAB PO SCH (12:10)
[2017-09-23] MEDS: ALPRAZolam 0.25 MG TAB PO PRN ×2 (12:10→21:40)
[2017-09-23] MEDS: FERROUS SULFATE 325 MG TAB PO SCH (12:10)
[2017-09-23] MEDS: ACETAMINOPHEN TAB 500 MG TAB PO PRN ×2 (12:10→21:40)
--- NOTE | 2017-09-23 12:41 | P.PN ---
Subjective Progress Note Date: 09/23/17 Principal diagnosis: Significant weakness The patient is complaining of significant weakness and had diarrhea related to lactulose use. She was completing of constipation but now is now stable. No sniffing chest pain or shortness of breath. product planner dispositions to possible ECF in the next 24-48 hours. Objective - Vital Signs Vital signs: Vital Signs Temp 98.5 F 09/23/17 07:40 Pulse 112 H 09/23/17 07:40 Resp 16 09/23/17 07:40 BP 192/92 09/23/17 07:40 Pulse Ox 93 L 09/23/17 07:40 Intake & Output 09/22/17 09/23/17 09/23/17 18:59 06:59 18:59 Weight 63.503 kg Other: Voiding Method Bedside Commode Bedside Commode Bedside Commode # Voids 2 # Bowel Movements 1 6 - Constitutional General appearance: Present: average body habitus - EENT Eyes: Absent: abnormal pupil - Respiratory Respiratory: bilateral: CTA - Cardiovascular Rhythm: regular Abnormal Heart Sounds: Absent: S3 Gallop - Gastrointestinal General gastrointestinal: Present: soft. Absent: tenderness - Neurologic Neurologic: Absent: CNII-XII intact - Psychiatric Psychiatric: Present: A&O x's 3 - Labs CBC & Chem 7: 09/22/17 13:55 09/22/17 13:55 Labs: Abnormal Lab Results - Last 24 Hours (Table) 09/22/17 09/22/17 Range/Units 13:55 13:55 WBC 0.8 L* (3.8-10.6) k/uL RBC 2.65 L (3.80-5.40) m/uL Hgb 7.9 L (11.4-16.0) gm/dL Hct 24.3 L (34.0-46.0) % RDW 16.3 H (11.5-15.5) % Plt Count 16 L* (150-450) k/uL Potassium 5.5 H (3.5-5.1) mmol/L Chloride 110 H (98-107) mmol/L Carbon Dioxide 16 L (22-30) mmol/L BUN 36 H (7-17) mg/dL Creatinine 3.00 H (0.52-1.04) mg/dL Glucose 108 H (74-99) mg/dL Calcium 7.9 L (8.4-10.2) mg/dL AST 39 H (14-36) U/L Albumin 2.8 L (3.5-5.0) g/dL Microbiology - Last 24 Hours (Table) 09/20/17 17:00 Blood Culture - Preliminary Blood No Growth after 48 hours Assessment and Plan (1) Dyspnea Current Visit: Yes Status: Acute Code(s): R06.00 - DYSPNEA, UNSPECIFIED SNOMED Code(s): 147073335 (2) Edema Current Visit: Yes Status: Acute Code(s): R60.9 - EDEMA, UNSPECIFIED SNOMED Code(s): 296623729 (3) Weakness Current Visit: Yes Status: Acute Priority: High Code(s): R53.1 - WEAKNESS SNOMED Code(s): 09647167 (4) Multiple myeloma Current Visit: Yes Status: Chronic Priority: High Code(s): C90.00 - MULTIPLE MYELOMA NOT HAVING ACHIEVED REMISSION SNOMED Code(s): 780904119 (5) Neutropenia Current Visit: No Status: Acute Code(s): D70.9 - NEUTROPENIA, UNSPECIFIED SNOMED Code(s): 965804067 (6) Thrombocytopenia Current Visit: No Status: Acute Code(s): D69.6 - THROMBOCYTOPENIA, UNSPECIFIED SNOMED Code(s): 285515838 Plan: This is a continue progress on a 76-year-old white female essentially admitted for weakness and dyspnea. She has an underlying history of multiple myeloma and anemia. The patient has difficulty ambulating and has poor appetite at this time. She had significant constipation and was given lactulose yesterday and complained of significant diarrhea. She had an element of hyperkalemia. We will recheck this in the a.m. I had a long discussion with her and her daughter and they are agreeable to transfer to [facility] for rehab in the next 24-48 hours if possible. I would like to see her at least doing a 1 person transfer. Rehab consultation. Otherwise, Dr. Suazo's group will be covering starting tomorrow. I anticipate discharge in next 24-48 hours if she is starting to ambulate better. Check CBC and CMP in a.m.. Time with Patient: Less than 30
[2017-09-23] MEDS: SODIUM CHLORIDE 0.9% 1,000 ML IV SCH (21:36)
[2017-09-23] MEDS: ATORVASTATIN 20 MG TAB PO SCH (21:37)
[2017-09-23] MEDS: MIRTAZAPINE 15 MG TAB PO SCH (21:37)
[2017-09-23] MEDS: ASPIRIN 81 MG PO SCH (21:37)
[2017-09-24] MEDS: LEVOTHYROXINE 25 MCG TAB PO SCH (06:19)
[2017-09-24 07:53] LABS: Anisocytosis Slight; MCH 29.8 pg (25.0-35.0); MCHC 33.9 g/dL (31.0-37.0); MCV 87.7 fL (80.0-100.0); Mean Platelet Volume 9.2; RBC 2.27 m/uL (3.80-5.40); RDW 16.7 % (11.5-15.5)
[2017-09-24 08:01] LABS: Platelet Count 15 k/uL (150-450); WBC 0.9 k/uL (3.8-10.6)
[2017-09-24 08:02] LABS: HGB 6.8 gm/dL (11.4-16.0)
[2017-09-24 08:03] LABS: HCT 19.9 % (34.0-46.0)
[2017-09-24] MEDS: ACYCLOVIR 200 MG CAP PO SCH ×2 (08:35→20:52)
[2017-09-24] MEDS: FLUCONAZOLE 100 MG TAB PO SCH (08:35)
[2017-09-24] MEDS: LACTOBACILLUS ACIDOPH & BULGAR 1 EACH PACKET PO SCH ×2 (08:35→20:52)
[2017-09-24] MEDS: METOPROLOL TARTRATE 50 MG TAB PO SCH ×3 (08:36→23:14)
[2017-09-24] MEDS: ASCORBIC ACID 500 MG TAB PO SCH (08:36)
[2017-09-24] MEDS: MULTIVITAMINS, THERA 1 EACH TAB PO SCH (08:36)
[2017-09-24] MEDS: PANTOPRAZOLE 40 MG TABLET PO SCH (08:36)
[2017-09-24] MEDS: ISOSORBIDE MONONITRATE ER 15 MG TAB PO SCH (08:36)
[2017-09-24] MEDS: FERROUS SULFATE 325 MG TAB PO SCH (08:36)
[2017-09-24] MEDS: ALPRAZolam 0.25 MG TAB PO PRN ×2 (08:44→20:53)
[2017-09-24] MEDS: ACETAMINOPHEN TAB 500 MG TAB PO PRN ×2 (08:44→20:53)
[2017-09-24 10:02] LABS: Albumin 2.5 g/dL (3.5-5.0); Potassium 5.1 mmol/L (3.5-5.1); Total Bilirubin 0.3 mg/dL (0.2-1.3)
--- NOTE | 2017-09-24 13:39 | P.PN ---
Subjective Progress Note Date: 09/24/17 Principal diagnosis: weakness, SAVANA Pt seen today in follow up. She states less nausea, tolerating oral intake, no fevers, weak cough, no changes in bowel or bladder, no bleeding, very weak, requires assistance to stand. No pain. Objective - Vital Signs Vital signs: Vital Signs Temp 97.5 F L 09/24/17 08:45 Pulse 94 09/24/17 08:45 Resp 16 09/24/17 08:45 BP 181/99 09/24/17 08:45 Pulse Ox 98 09/24/17 08:45 Intake & Output 09/23/17 09/24/17 09/24/17 18:59 06:59 18:59 Intake Total 480 Balance 480 Intake: Oral 480 Other: Voiding Method Bedside Commode Bedside Commode Bedside Commode # Voids 5 1 1 - Constitutional General appearance: Present: cooperative, no acute distress, obese - EENT Eyes: Present: anicteric sclerae - Respiratory Respiratory: bilateral: CTA (weak inspiratory effort) - Cardiovascular Heart sounds: normal: S1, S2 - Gastrointestinal General gastrointestinal: Present: soft - Musculoskeletal Musculoskeletal: Present: generalized weakness - Psychiatric Psychiatric: Present: A&O x's 3, appropriate affect, intact judgment & insight - Labs CBC & Chem 7: 09/24/17 07:20 09/24/17 07:20 Labs: Abnormal Lab Results - Last 24 Hours (Table) 09/24/17 09/24/17 09/24/17 Range/Units 07:20 07:20 11:47 WBC 0.9 L* (3.8-10.6) k/uL RBC 2.27 L (3.80-5.40) m/uL Hgb 6.8 L* (11.4-16.0) gm/dL Hct 19.9 L* (34.0-46.0) % RDW 16.7 H (11.5-15.5) % Plt Count 15 L* (150-450) k/uL Chloride 112 H (98-107) mmol/L Carbon Dioxide 17 L (22-30) mmol/L BUN 37 H (7-17) mg/dL Creatinine 3.17 H (0.52-1.04) mg/dL Calcium 8.0 L (8.4-10.2) mg/dL AST 40 H (14-36) U/L Alkaline Phosphatase 133 H (38-126) U/L Total Protein 6.0 L (6.3-8.2) g/dL Albumin 2.5 L (3.5-5.0) g/dL Crossmatch See Detail Microbiology - Last 24 Hours (Table) 09/20/17 17:00 Blood Culture - Preliminary Blood No Growth after 72 hours Assessment and Plan (1) Multiple myeloma Narrative/Plan: Patient has been provided information for venetoclax, no questions today. Patient is going to rehab and follow-up with Dr. Sher in a couple weeks to see if she is strong enough to try treatment. No current treatment for myeloma. Current Visit: Yes Status: Chronic Priority: High Code(s): C90.00 - MULTIPLE MYELOMA NOT HAVING ACHIEVED REMISSION SNOMED Code(s): 169341437 (2) Pancytopenia Narrative/Plan: 1 unit of PRBCs for Hgb 6.8. Recommend weekly CBC while in rehab with conservative transfusion to keep Hgb 7-7.5 range. No platelets unless symptomatic or <10,000 No intervention for leukopenia at this time. Current Visit: Yes Status: Chronic Priority: Medium Code(s): D61.818 - OTHER PANCYTOPENIA SNOMED Code(s): 156832481 Plan: Pt ok to be discharged to [facility] from a Hem/Onc standpoint once cleared by Attending and Consulting Physicians.
[2017-09-24] MEDS: SODIUM CHLORIDE 0.9% 1,000 ML IV SCH (15:48)
--- NOTE | 2017-09-24 17:48 | P.PN ---
Subjective 76-year-old the female came in with generalized weakness patient is severely anemic now patient is receiving blood transfusion today waiting. Disposition to subacute rehabilitation. Patient has multiple myeloma and patient has a progressively worsening kidney function probably from multiple myeloma and a reversible. Constitutional: Patient is severely fatigued and lethargic Cardio vascular: denied any chest pain, palpitations Gastrointestinal denied any nausea vomiting, she is constipated requesting milk of magnesia Pulmonary: Denied any shortness of breath cough Neurologic denied any new focal deficits Objective - Vital Signs Vital signs: Vital Signs Temp 98.2 F 09/24/17 16:38 Pulse 86 09/24/17 16:38 Resp 14 09/24/17 16:38 BP 164/78 09/24/17 16:38 Pulse Ox 96 09/24/17 16:38 Intake & Output 09/23/17 09/24/17 09/24/17 18:59 06:59 18:59 Intake Total 480 0 Balance 480 0 Weight 63.503 kg Intake: Oral 480 Blood Product 0 Rc Pheresis 2 As3 Unit 0 [id number] Other: Voiding Method Bedside Commode Bedside Commode Bedside Commode # Voids 5 1 3 # Bowel Movements 1 - Exam PHYSICAL EXAMINATION: GENERAL: The patient is alert and oriented x3, not in any acute distress. Well developed, well nourished. Appears quite lethargic HEENT: Pupils are round and equally reacting to light. EOMI. No scleral icterus. Does have conjunctival pallor. Normocephalic, atraumatic. No pharyngeal erythema. No thyromegaly. CARDIOVASCULAR: S1 and S2 present. No murmurs, rubs, or gallops. PULMONARY: Chest is clear to auscultation, no wheezing or crackles. ABDOMEN: Soft, nontender, nondistended, normoactive bowel sounds. No palpable organomegaly. MUSCULOSKELETAL: No joint swelling or deformity. EXTREMITIES: No cyanosis, clubbing, or pedal edema. NEUROLOGICAL: Gross neurological examination did not reveal any focal deficits. SKIN: No rashes. - Labs CBC & Chem 7: 09/24/17 07:20 09/24/17 07:20 Labs: Abnormal Lab Results - Last 24 Hours (Table) 09/24/17 09/24/17 09/24/17 Range/Units 07:20 07:20 11:47 WBC 0.9 L* (3.8-10.6) k/uL RBC 2.27 L (3.80-5.40) m/uL Hgb 6.8 L* (11.4-16.0) gm/dL Hct 19.9 L* (34.0-46.0) % RDW 16.7 H (11.5-15.5) % Plt Count 15 L* (150-450) k/uL Chloride 112 H (98-107) mmol/L Carbon Dioxide 17 L (22-30) mmol/L BUN 37 H (7-17) mg/dL Creatinine 3.17 H (0.52-1.04) mg/dL Calcium 8.0 L (8.4-10.2) mg/dL AST 40 H (14-36) U/L Alkaline Phosphatase 133 H (38-126) U/L Total Protein 6.0 L (6.3-8.2) g/dL Albumin 2.5 L (3.5-5.0) g/dL Crossmatch See Detail Microbiology - Last 24 Hours (Table) 09/20/17 17:00 Blood Culture - Preliminary Blood No Growth after 72 hours Assessment and Plan Plan: -Severe lethargy deconditioning: Secondary to multiple myeloma and anemia for which patient is receiving blood transfusion. -Multiple myeloma: Once her functional status improves patient will be started on chemotherapy -Chronic kidney disease: Secondary to multiple myeloma has been progressively worsening for last few months. Daily stable now patient has CK D stage V -Pancytopenia: Secondary to multiple myeloma patient is receiving blood transfusion -Or myalgia -Gastric esophageal reflux disease Disposition: Subacute rehabilitation tomorrow
[2017-09-24] MEDS: MIRTAZAPINE 15 MG TAB PO SCH (20:52)
[2017-09-24] MEDS: ASPIRIN 81 MG PO SCH (20:52)
[2017-09-24] MEDS: ATORVASTATIN 20 MG TAB PO SCH (20:52)
[2017-09-24 23:18] VITALS: RESP 16
[2017-09-25] MEDS: LEVOTHYROXINE 25 MCG TAB PO SCH (06:33)
[2017-09-25] MEDS: ISOSORBIDE MONONITRATE ER 15 MG TAB PO SCH (08:18)
[2017-09-25] MEDS: METOPROLOL TARTRATE 50 MG TAB PO SCH (08:18)
[2017-09-25] MEDS: LACTOBACILLUS ACIDOPH & BULGAR 1 EACH PACKET PO SCH (08:18)
[2017-09-25] MEDS: FLUCONAZOLE 100 MG TAB PO SCH (08:19)
[2017-09-25] MEDS: FERROUS SULFATE 325 MG TAB PO SCH (08:19)
[2017-09-25] MEDS: PANTOPRAZOLE 40 MG TABLET PO SCH (08:19)
[2017-09-25] MEDS: ACYCLOVIR 200 MG CAP PO SCH (08:19)
[2017-09-25] MEDS: MULTIVITAMINS, THERA 1 EACH TAB PO SCH (08:20)
[2017-09-25] MEDS: ASCORBIC ACID 500 MG TAB PO SCH (08:20)
[2017-09-25] MEDS: ALPRAZolam 0.25 MG TAB PO PRN (08:24)
[2017-09-25] MEDS: ACETAMINOPHEN TAB 500 MG TAB PO PRN (08:24)
[2017-09-25 08:49] VITALS: TEMP 98.5
--- NOTE | 2017-09-25 10:48 | P.DS ---
Providers Date of admission: 09/20/17 19:18 Attending physician: Sami Cardenas Consults: 09/20/17 19:31 Consult Physician Urgent Consulting Provider: Nirmala Sher Consult Reason/Comments: Weakness; Dyspnea; Pancytopenia; Hx of Multiple Myeloma Do you want consulting provider notified?: Yes Primary care physician: Sami Cardenas Hospital Course: 76-year-old the female came in with generalized weakness patient is severely anemic now patient is receiving blood transfusion today waiting. Disposition to subacute rehabilitation. Patient has multiple myeloma and patient has a progressively worsening kidney function probably from multiple myeloma and a reversible. 09/25/2017 Patient received blood transfusion yesterday still feel quite lethargic and weak because of multiple myeloma. Nothing much else can be offered here in the hospital patient the prognosis is extremely poor patient is definitely high risk for readmission. PHYSICAL EXAMINATION: GENERAL: The patient is alert and oriented x3, not in any acute distress. Well developed, well nourished. Appears quite lethargic, although looks little bit better than yesterday HEENT: Pupils are round and equally reacting to light. EOMI. No scleral icterus. Does have conjunctival pallor. Normocephalic, atraumatic. No pharyngeal erythema. No thyromegaly. CARDIOVASCULAR: S1 and S2 present. No murmurs, rubs, or gallops. PULMONARY: Chest is clear to auscultation, no wheezing or crackles. ABDOMEN: Soft, nontender, nondistended, normoactive bowel sounds. No palpable organomegaly. MUSCULOSKELETAL: No joint swelling or deformity. EXTREMITIES: No cyanosis, clubbing, or pedal edema. NEUROLOGICAL: Gross neurological examination did not reveal any focal deficits. SKIN: No rashes. Assessment and Plan Plan: -Severe lethargy deconditioning: Secondary to multiple myeloma and anemia for which patient is received blood transfusion. -Multiple myeloma: Once her functional status improves patient will be started on chemotherapy -Chronic kidney disease: Secondary to multiple myeloma has been progressively worsening for last few months. Daily stable now patient has CK D stage IV -Pancytopenia: Secondary to multiple myeloma patient is receiving blood transfusion -Fibromyalgia -Gastric esophageal reflux disease Disposition: Subacute rehabilitation today -Hypertension amlodipine will be added to her regimen. Patient Condition at Discharge: Serious Plan - Discharge Summary Discharge Rx Participant: No New Discharge Prescriptions: New ALPRAZolam [Xanax] 0.25 mg PO TID PRN #9 tab PRN Reason: Anxiety amLODIPine [Norvasc] 5 mg PO DAILY #1 tab Continue Acetaminophen Tab [Tylenol] 1,000 mg PO Q6H PRN PRN Reason: Fever Levothyroxine Sodium [Levoxyl] 25 mcg PO DAILY Lactobacillus Acidophilus [Acidophilus] 2 tab PO BID Mirtazapine [Remeron] 7.5 mg PO HS Aspirin 81 mg PO HS Isosorbide Mononitrate [Isosorbide Mononitrate ER] 15 mg PO DAILY Ascorbic Acid [Vitamin C] 500 mg PO DAILY Ipratropium-Albuterol Nebulize [Duoneb 0.5 mg-3 mg/3 ml Soln] 3 ml INHALATION RT-Q4H PRN ampul.neb PRN Reason: Shortness Of Breath Or Wheezing Metoprolol Tartrate [Lopressor] 50 mg PO BID tab Acyclovir [Zovirax] 200 mg PO BID Multivits,Th W-Ca,Fe,Oth Min [Therapeutic M] 1 tab PO DAILY Simvastatin 40 mg PO HS Ferrous Sulfate [Iron (65 MG Elemental)] 325 mg PO DAILY@1200 Lansoprazole [Prevacid] 30 mg PO DAILY Nystatin 100,000 Unit/gm Powd [Mycostatin Powder] 1 applic TOPICAL BID PRN PRN Reason: Skin Irritation Fluconazole [Diflucan] 100 mg PO DAILY #14 tab Discontinued ALPRAZolam [Xanax] 1 mg PO TID PRN PRN Reason: Anxiety Discharge Medication List Acetaminophen Tab [Tylenol] 1,000 mg PO Q6H PRN 01/04/14 [History] Levothyroxine Sodium [Levoxyl] 25 mcg PO DAILY 01/04/14 [History] Lactobacillus Acidophilus [Acidophilus] 2 tab PO BID 11/14/15 [History] Aspirin 81 mg PO HS 09/05/16 [History] Mirtazapine [Remeron] 7.5 mg PO HS 09/05/16 [History] Ascorbic Acid [Vitamin C] 500 mg PO DAILY 06/26/17 [History] Isosorbide Mononitrate [Isosorbide Mononitrate ER] 15 mg PO DAILY 06/26/17 [ History] Ipratropium-Albuterol Nebulize [Duoneb 0.5 mg-3 mg/3 ml Soln] 3 ml INHALATION RT -Q4H PRN ampul.neb 07/10/17 [Rx] Metoprolol Tartrate [Lopressor] 50 mg PO BID tab 07/10/17 [Rx] Acyclovir [Zovirax] 200 mg PO BID 07/21/17 [History] Multivits,Th W-Ca,Fe,Oth Min [Therapeutic M] 1 tab PO DAILY 07/21/17 [History] Ferrous Sulfate [Iron (65 MG Elemental)] 325 mg PO DAILY@1200 09/10/17 [History] Lansoprazole [Prevacid] 30 mg PO DAILY 09/10/17 [History] Nystatin 100,000 Unit/gm Powd [Mycostatin Powder] 1 applic TOPICAL BID PRN 09/10 [History] Simvastatin 40 mg PO HS 09/10/17 [History] Fluconazole [Diflucan] 100 mg PO DAILY #14 tab 09/15/17 [Rx] ALPRAZolam [Xanax] 0.25 mg PO TID PRN #9 tab 09/25/17 [Rx] amLODIPine [Norvasc] 5 mg PO DAILY #1 tab 09/25/17 [Rx] Follow up Appointment(s)/Referral(s): Andrews Mckeon MD [STAFF PHYSICIAN] - 1 Week Sami Cardenas MD [Primary Care Provider] - 1-2 days Nirmala Sher MD [STAFF PHYSICIAN] - 10/09/17 4:00 pm Ambulatory/Diagnostic Orders: Miscellaneous Lab Order [LAB.AMB] Location: Determined By Patient Discharge Disposition: TRANSFER TO SNF/ECF
[2017-09-25] MEDS: SODIUM CHLORIDE 0.9% 1,000 ML IV SCH (11:32)
[2017-09-25] MEDS ORDERED: amLODIPine 5 MG TAB PO STA (11:46)
[2017-09-25 11:47] VITALS: PULSE 76
[2017-09-25 12:35] LABS: Anisocytosis Slight; HCT 23.8 % (34.0-46.0); MCH 29.2 pg (25.0-35.0); MCV 83.3 fL (80.0-100.0); Mean Platelet Volume 8.5; RBC 2.86 m/uL (3.80-5.40); RDW 17.6 % (11.5-15.5)
[2017-09-25 12:51] LABS: WBC 1.3 k/uL (3.8-10.6)
[2017-09-25 12:52] LABS: HGB 8.4 gm/dL (11.4-16.0); Platelet Count 27 k/uL (150-450)
[2017-09-25 13:25] VITALS: BP 160/80
[2017-09-25 13:45] LABS: Lymphocytes # (M) 0.85 k/uL (1.0-4.8); Monocytes # (M) 0.05 k/uL (0-1.0); Neutrophils % (M) 31 %; Nucleated Red Blood Cells 0 /100 WBC (0-0); Total Cells Counted 100
== END 2017-09-25 17:30 | DRG 809 ==
LOC: EC 15:41 → 5MS5E 19:18 → 5ONC 09-21 17:15
PROVIDERS: ADMIT Family Medicine; ATTEND Family Medicine
PROC: 30243N1 Transfusion of Nonautologous Red Blood Cells into Central Vein, Percutaneous Approach (ICD-10-PCS; principal; 2017-09-24)
DX: D61.818 Other pancytopenia (principal); C90.00 Multiple myeloma not having achieved remission; N18.4 Chronic kidney disease, stage 4 (severe); E87.5 Hyperkalemia; K21.9 Gastro-esophageal reflux disease without esophagitis; I12.9 Hypertensive chronic kidney disease with stage 1 through stage 4 chronic kidney disease, or unspecified chronic kidney disease; M19.91 Primary osteoarthritis, unspecified site; F41.9 Anxiety disorder, unspecified; E07.9 Disorder of thyroid, unspecified; R60.9 Edema, unspecified; M79.7 Fibromyalgia; K59.00 Constipation, unspecified; I25.2 Old myocardial infarction; R19.7 Diarrhea, unspecified; R11.2 Nausea with vomiting, unspecified; M84.58XD Pathological fracture in neoplastic disease, other specified site, subsequent encounter for fracture with routine healing; Z79.82 Long term (current) use of aspirin; Z79.890 Hormone replacement therapy; Z79.899 Other long term (current) drug therapy; Z87.01 Personal history of pneumonia (recurrent); Z90.710 Acquired absence of both cervix and uterus; Z88.5 Allergy status to narcotic agent; Z88.0 Allergy status to penicillin; Z88.2 Allergy status to sulfonamides; Z80.51 Family history of malignant neoplasm of kidney; Z82.49 Family history of ischemic heart disease and other diseases of the circulatory system
CPT/HCPCS: 36415; 71046; 80053; 81001; 82550; 82553; 83605; 84484; 85025; 85027; 86850; 86900; 86901; 86920; 87040; 93005; 94640; 94760; 99285

== ENCOUNTER 2017-10-25 15:07 | Inpatient (IN) | payer MEDICARE, BC ==
[2017-10-25] MEDS ORDERED: ACETAMINOPHEN IV (For NPO) 1,000 MG in EMPTY BAG 1 BAG IVPB STA (15:37)
[2017-10-25] MEDS ORDERED: IBUPROFEN IV 600 MG in SODIUM CHLORIDE 0.9% 250 ML IV STA (15:38)
[2017-10-25] MEDS ORDERED: cefTRIAXone IN SWFI 1,000 MG/10 ML SYRINGE IVP STA (15:38)
[2017-10-25] MEDS: SODIUM CHLORIDE 0.9% 500 ML IV SCH ×2 (15:59→16:45)
--- NOTE | 2017-10-25 16:01 | ED ---
General Adult HPI - General Chief complaint: Recheck/Abnormal Lab/Rx Stated complaint: no appetite Time Seen by Provider: 10/25/17 15:15 Source: EMS, RN notes reviewed Mode of arrival: EMS Limitations: altered mental status - History of Present Illness Initial comments: This is a 76-year-old female who presented to the emergency department with a past medical history significant for multiple myeloma and anemia. Patient recently was transfused 2 units. Patient comes in today because she was found to be altered today patient was also coughing quite a bit. Patient denies any chest pain or abdominal pain. Patient denies any headache patient denies being lightheaded but she does complain of being generally weak. According to custodial she felt warm but they did not get a good temperature. Patient denies any vomiting or nausea. Patient denies any diarrhea. Patient has not been eating as well per the custodial. - Related Data Home Medications Medication Instructions Recorded Confirmed Acetaminophen Tab [Tylenol] 1,000 mg PO Q6H PRN 01/04/14 10/25/17 Levothyroxine Sodium [Levoxyl] 25 mcg PO DAILY 01/04/14 10/25/17 Lactobacillus Acidophilus 2 tab PO BID 11/14/15 10/25/17 [Acidophilus] Aspirin 81 mg PO HS 09/05/16 10/25/17 Mirtazapine [Remeron] 7.5 mg PO HS 09/05/16 10/25/17 Ascorbic Acid [Vitamin C] 500 mg PO DAILY 06/26/17 10/25/17 Isosorbide Mononitrate [Isosorbide 15 mg PO DAILY 06/26/17 10/25/17 Mononitrate ER] Acyclovir [Zovirax] 200 mg PO BID 07/21/17 10/25/17 Multivits,Th W-Ca,Fe,Oth Min 1 tab PO DAILY 07/21/17 10/25/17 [Therapeutic M] Ferrous Sulfate [Iron (65 MG 325 mg PO DAILY@1200 09/10/17 10/25/17 Elemental)] Lansoprazole [Prevacid] 30 mg PO DAILY 09/10/17 10/25/17 Nystatin 100,000 Unit/gm Powd 1 applic TOPICAL BID PRN 09/10/17 10/25/17 [Mycostatin Powder] Simvastatin 40 mg PO HS 09/10/17 10/25/17 Previous Rx's Medication Instructions Recorded Ipratropium-Albuterol Nebulize 3 ml INHALATION RT-Q4H PRN 07/10/17 [Duoneb 0.5 mg-3 mg/3 ml Soln] ampul.neb Metoprolol Tartrate [Lopressor] 50 mg PO BID tab 07/10/17 Fluconazole [Diflucan] 100 mg PO DAILY #14 tab 09/15/17 ALPRAZolam [Xanax] 0.25 mg PO TID PRN #9 tab 09/25/17 amLODIPine [Norvasc] 5 mg PO DAILY #1 tab 09/25/17 Allergies Allergy/AdvReac Type Severity Reaction Status Date / Time codeine Allergy Rapid Verified 10/25/17 15:13 Heart Rate Penicillins Allergy Rash/Hives Verified 10/25/17 15:13 Sulfa (Sulfonamide Allergy Dyspnea Verified 10/25/17 15:13 Antibiotics) Review of Systems ROS Statement: Those systems with pertinent positive or pertinent negative responses have been documented in the HPI. ROS Other: All systems not noted in ROS Statement are negative. Past Medical History Past Medical History: Cancer, Fibromyalgia, GERD/Reflux, Myocardial Infarction ( [place]), Osteoarthritis (OA), Pneumonia, Thyroid Disorder Additional Past Medical History / Comment(s): MULTIPLE MYLEMOMA STAGE 3, COMPRESSION FRACTURES. [place] - April Last Myocardial Infarction Date:: 05-24-2017 History of Any Multi-Drug Resistant Organisms: None Reported Past Surgical History: Bowel Resection, Heart Catheterization, Hysterectomy Additional Past Surgical History / Comment(s): cystocele,rectocele, rt upper chest power port Past Anesthesia/Blood Transfusion Reactions: Postoperative Nausea & Vomiting ( PONV) Additional Past Anesthesia/Blood Transfusion Reaction / Comment(s): pt states PONV only with general anesthesia. Pt. states she had [place] on 05-24-18 while getting blood transfusion; pt. states she also had just started a new chemo medication which has since been discontinued Past Psychological History: Anxiety Smoking Status: Never smoker Past Alcohol Use History: None Reported Past Drug Use History: None Reported - Past Family History Father Family Medical History: Cancer Additional Family Medical History / Comment(s): KIDNEY CANCER Mother Family Medical History: Myocardial Infarction ([place]) General Exam - General Exam Comments Initial Comments: GENERAL: Patient is well-developed and well-nourished. Patient is nontoxic and well- hydrated and is in mild distress. ENT: Neck is soft and supple. No significant lymphadenopathy is noted. Oropharynx is clear. Moist mucous membranes. Neck has full range of motion without eliciting any pain. EYES: The sclera were anicteric and conjunctiva were pink and moist. Extraocular movements were intact and pupils were equal round and reactive to light. Eyelids were unremarkable. PULMONARY: Unlabored respirations. Good breath sounds bilaterally. No audible rales rhonchi or wheezing was noted. CARDIOVASCULAR: There is a regular rate and rhythm without any murmurs gallops or rubs. ABDOMEN: Soft and nontender with normal bowel sounds. No palpable organomegaly was noted. There is no palpable pulsatile mass. SKIN: Skin is clear with no lesions or rashes and otherwise unremarkable. NEUROLOGIC: Patient is alert and oriented x3. Cranial nerves II through XII are grossly intact. Motor and sensory are also intact. Normal speech, volume and content. Symmetrical smile. MUSCULOSKELETAL: Normal extremities with adequate strength and full range of motion. No lower extremity swelling or edema. No calf tenderness. LYMPHATICS: No significant lymphadenopathy is noted PSYCHIATRIC: Normal psychiatric evaluation. Normal interpersonal interactions appears functionally intact in deals appropriately with others. No signs of depression. No signs of anxiety. Limitations: altered mental status Course Vital Signs 10/25/17 10/25/17 10/25/17 15:14 15:51 16:33 Temperature 99.1 F 102 F H Pulse Rate 118 H 118 H 118 H Respiratory 18 22 18 Rate Blood Pressure 133/61 133/58 121/65 O2 Sat by Pulse 97 95 95 Oximetry Medical Decision Making - Medical Decision Making EKG shows sinus tachycardia at 117 bpm NE interval is 136 QRS is 86 Q-T intervals 294 QTC is 410. Patient's EKG shows no ST segment elevation or depression or T wave abnormalities are noted. There is quite a bit of artifact in leads V4 V5 Chest x-ray shows some chronic changes but areas of infiltrate cannot be excluded. I spoke with Dr. Hernadez she agreed to admit the patient I wrote admitting orders I started the patient antibiotics I consult to Dr. Moore the engraver rubber a consult to Dr. Sher the oncologist I consulted Dr. Sepulveda the infectious disease doctor. I wrote the rest of the admitting orders. - Lab Data Result diagrams: 10/25/17 15:50 10/25/17 15:50 Lab Results 10/25/17 10/25/17 10/25/17 Range/Units 15:50 15:50 15:50 WBC 2.3 L (3.8-10.6) k/uL RBC 3.15 L (3.80-5.40) m/uL Hgb 9.5 L (11.4-16.0) gm/dL Hct 29.0 L (34.0-46.0) % MCV 92.2 D (80.0-100.0) fL MCH 30.3 (25.0-35.0) pg MCHC 32.8 (31.0-37.0) g/dL RDW 16.5 H (11.5-15.5) % Plt Count 14 L* (150-450) k/uL Neutrophils % (Manual) 14 % Lymphocytes % (Manual) 50 % Blast Cells % 36 % Neutrophils # (Manual) 0.32 L (1.3-7.7) k/uL Lymphocytes # (Manual) 1.15 (1.0-4.8) k/uL Blast Cells # (Man) 0.83 H (0) k/uL Nucleated RBCs 0 (0-0) /100 WBC Manual Slide Review Performed Anisocytosis Slight PT (9.0-12.0) sec INR (<1.2) APTT (22.0-30.0) sec Sodium 143 (137-145) mmol/L Potassium 5.1 (3.5-5.1) mmol/L Chloride 117 H (98-107) mmol/L Carbon Dioxide 10 L* (22-30) mmol/L Anion Gap 16 mmol/L BUN 44 H (7-17) mg/dL Creatinine 5.40 H* (0.52-1.04) mg/dL Est GFR (CKD-EPI)AfAm 8 (>60 ml/min/1.73 sqM) Est GFR (CKD-EPI)NonAf 7 (>60 ml/min/1.73 sqM) Glucose 107 H (74-99) mg/dL Plasma Lactic Acid Sg 0.9 (0.7-2.0) mmol/L Calcium 8.8 (8.4-10.2) mg/dL Total Bilirubin 0.8 (0.2-1.3) mg/dL AST 64 H (14-36) U/L ALT 42 (9-52) U/L Alkaline Phosphatase 324 H (38-126) U/L Total Protein 7.7 (6.3-8.2) g/dL Albumin 3.0 L (3.5-5.0) g/dL Urine Color Urine Appearance (Clear) Urine pH (5.0-8.0) Ur Specific Franklin (1.001-1.035) Urine Protein (Negative) Urine Glucose (UA) (Negative) Urine Ketones (Negative) Urine Blood (Negative) Urine Nitrite (Negative) Urine Bilirubin (Negative) Urine Urobilinogen (<2.0) mg/dL Ur Leukocyte Esterase (Negative) Urine RBC (0-5) /hpf Urine WBC (0-5) /hpf Amorphous Sediment (None) /hpf Hyaline Casts (0-2) /lpf Urine Mucus (None) /hpf 10/25/17 10/25/17 Range/Units 15:50 16:30 WBC (3.8-10.6) k/uL RBC (3.80-5.40) m/uL Hgb (11.4-16.0) gm/dL Hct (34.0-46.0) % MCV (80.0-100.0) fL MCH (25.0-35.0) pg MCHC (31.0-37.0) g/dL RDW (11.5-15.5) % Plt Count (150-450) k/uL Neutrophils % (Manual) % Lymphocytes % (Manual) % Blast Cells % % Neutrophils # (Manual) (1.3-7.7) k/uL Lymphocytes # (Manual) (1.0-4.8) k/uL Blast Cells # (Man) (0) k/uL Nucleated RBCs (0-0) /100 WBC Manual Slide Review Anisocytosis PT 12.4 H (9.0-12.0) sec INR 1.3 H (<1.2) APTT 36.8 H (22.0-30.0) sec Sodium (137-145) mmol/L Potassium (3.5-5.1) mmol/L Chloride (98-107) mmol/L Carbon Dioxide (22-30) mmol/L Anion Gap mmol/L BUN (7-17) mg/dL Creatinine (0.52-1.04) mg/dL Est GFR (CKD-EPI)AfAm (>60 ml/min/1.73 sqM) Est GFR (CKD-EPI)NonAf (>60 ml/min/1.73 sqM) Glucose (74-99) mg/dL Plasma Lactic Acid Sg (0.7-2.0) mmol/L Calcium (8.4-10.2) mg/dL Total Bilirubin (0.2-1.3) mg/dL AST (14-36) U/L ALT (9-52) U/L Alkaline Phosphatase (38-126) U/L Total Protein (6.3-8.2) g/dL Albumin (3.5-5.0) g/dL Urine Color Yellow Urine Appearance Cloudy H (Clear) Urine pH 6.0 (5.0-8.0) Ur Specific Franklin 1.014 (1.001-1.035) Urine Protein 3+ H (Negative) Urine Glucose (UA) Negative (Negative) Urine Ketones Negative (Negative) Urine Blood Negative (Negative) Urine Nitrite Negative (Negative) Urine Bilirubin Negative (Negative) Urine Urobilinogen <2.0 (<2.0) mg/dL Ur Leukocyte Esterase Negative (Negative) Urine RBC <1 (0-5) /hpf Urine WBC 3 (0-5) /hpf Amorphous Sediment Rare H (None) /hpf Hyaline Casts 7 H (0-2) /lpf Urine Mucus Rare H (None) /hpf Critical Care Time Critical Care Time: Yes Total Critical Care Time: 35 Disposition Clinical Impression: Thrombocytopenia, Pneumonia, Renal failure Disposition: ADMITTED IP TO THIS HOSP Referrals: Nehal Garcia MD [Primary Care Provider] - 1-2 days Time of Disposition: 17:03
[2017-10-25 16:18] LABS: Anisocytosis Slight; HGB 9.5 gm/dL (11.4-16.0); MCH 30.3 pg (25.0-35.0); MCHC 32.8 g/dL (31.0-37.0); Mean Platelet Volume 8.8; RBC 3.15 m/uL (3.80-5.40); RDW 16.5 % (11.5-15.5); WBC 2.3 k/uL (3.8-10.6)
[2017-10-25 16:21] LABS: MCV 92.2 fL (80.0-100.0)
[2017-10-25 16:22] LABS: Platelet Count 14 k/uL (150-450)
[2017-10-25 16:24] LABS: INR 1.3 (<1.2); Partial Thromboplastin Time 36.8 sec (22.0-30.0); Prothrombin Time 12.4 sec (9.0-12.0)
[2017-10-25 16:32] LABS: Calcium 8.8 mg/dL (8.4-10.2); Potassium 5.1 mmol/L (3.5-5.1); Total Bilirubin 0.8 mg/dL (0.2-1.3); Total Protein 7.7 g/dL (6.3-8.2)
[2017-10-25 16:40] LABS: Blast Cells # (M) 0.83 k/uL (0); Lymphocytes # (M) 1.15 k/uL (1.0-4.8); Neutrophils # (M) 0.32 k/uL (1.3-7.7); Neutrophils % (M) 14 %; Nucleated Red Blood Cells 0 /100 WBC (0-0); Total Cells Counted 100
[2017-10-25 16:50] LABS: Amorphous Sediment,Urine Rare /hpf; Appearance,Urine Cloudy (Clear); Bilirubin,Urine Negative (Negative); Blood,Urine Negative (Negative); Color,Urine Yellow; Glucose,Urine (UA) Negative (Negative); Hyaline Casts,Urine 7 /lpf (0-2); Ketones,Urine Negative (Negative); Leukocyte Esterase,Urine Negative (Negative); Mucus,Urine Rare /hpf; Nitrite,Urine Negative (Negative); Protein,Urine 3+ (Negative); RBC,Urine <1 /hpf (0-5); Specific Gravity,Urine 1.014 (1.001-1.035); Urobilinogen,Urine <2.0 mg/dL (<2.0); WBC,Urine 3 /hpf (0-5)
--- NOTE | 2017-10-25 16:50 | XR ---
EXAMINATION TYPE: XR chest 2V DATE OF EXAM: 10/25/2017 COMPARISON: Chest x-ray September 20, 2017. CT chest abdomen pelvis July 02, 2017. HISTORY: Fever with diminished appetite. History of end-stage multiple myeloma TECHNIQUE: Frontal and lateral views of the chest are obtained. FINDINGS: Osseous structures remain demineralized. Exaggerated thoracic kyphosis with compression fra ctures near thoracolumbar junction are redemonstrated. There is stable right internal jugular Medipor t catheter. There is persistent cardiomegaly with atherosclerotic thoracic aorta. There is persistent low lung volumes with patchy parenchymal opacities again seen bilaterally slightly more prominent in the left lung base on current study but not significantly changed from prior chest x-ray. IMPRESSION: Chronic changes, cardiomegaly, low lung volumes, areas of acute infiltrate are difficult to exclude though not definitively identified on background of chronic change.
[2017-10-25] MEDS ORDERED: PNEUMONIA PROTOCOL UTILIZED 1 EACH MISC PO PRN (17:03)
[2017-10-25] MEDS: SODIUM CHLORIDE 0.9% 1,000 ML IV SCH (17:19)
[2017-10-25] MEDS ORDERED: IPRATROPIUM-ALBUTEROL 3 ML NEB INHALATION PRN (17:44)
[2017-10-25] MEDS ORDERED: ALPRAZolam 0.25 MG TAB PO PRN (17:44)
[2017-10-25 18:13] VITALS: BMI 22.1
[2017-10-25] MEDS: ACYCLOVIR 200 MG CAP PO SCH (20:42)
[2017-10-25] MEDS: METOPROLOL TARTRATE 50 MG TAB PO SCH (20:42)
[2017-10-25 20:47] LABS: Glucose,Whole Blood 82 mg/dL (75-99)
[2017-10-25] MEDS ORDERED: SODIUM CHLORIDE 0.9% 500 ML IV ONE (20:59)
[2017-10-25] MEDS ORDERED: MIRTAZAPINE 15 MG TAB PO SCH (21:00)
[2017-10-25] MEDS ORDERED: ATORVASTATIN 20 MG TAB PO SCH (21:00)
[2017-10-26] MEDS: CEFEPIME 2 GM in SODIUM CHLORIDE 0.9% 50 ML IVPB SCH ×2 (00:09→07:17)
[2017-10-26] MEDS: SODIUM CHLORIDE 0.9% 1,000 ML IV SCH (00:09)
[2017-10-26] MEDS ORDERED: LEVOTHYROXINE 25 MCG TAB PO SCH (06:30)
[2017-10-26] MEDS: ACYCLOVIR 200 MG CAP PO SCH (07:18)
[2017-10-26] MEDS: METOPROLOL TARTRATE 50 MG TAB PO SCH (07:18)
[2017-10-26] MEDS ORDERED: PANTOPRAZOLE 40 MG TABLET PO SCH (07:30)
[2017-10-26 07:43] VITALS: BP 59/36; PULSE 73; RESP 20; TEMP 97.5
--- NOTE | 2017-10-26 08:08 | P.HPIM ---
History of Present Illness H&P Date: 10/26/17 Chief Complaint: Coughing with altered mental status. This is a history and physical on a 76-year-old female with known history of multiple myeloma and history of anemia. She was receiving discharge for renal failure and element of pneumonia. The patient had significant cough and fever. She is seen this morning unfortunately gasping and disoriented. Comfort care measures have been instituted and hospice most likely will be consulted. The patient is not responsive to verbal stimuli at this time. Multiple consultations are noted. Review of Systems ROS unobtainable: due to mental status Past Medical History Past Medical History: Cancer, Fibromyalgia, GERD/Reflux, Myocardial Infarction ( [place]), Osteoarthritis (OA), Pneumonia, Thyroid Disorder Additional Past Medical History / Comment(s): MULTIPLE MYLEMOMA STAGE 3, COMPRESSION FRACTURES. [place] - April Last Myocardial Infarction Date:: 05-24-2017 History of Any Multi-Drug Resistant Organisms: None Reported Past Surgical History: Bowel Resection, Heart Catheterization, Hysterectomy Additional Past Surgical History / Comment(s): cystocele,rectocele, rt upper chest power port Past Anesthesia/Blood Transfusion Reactions: Postoperative Nausea & Vomiting ( PONV) Additional Past Anesthesia/Blood Transfusion Reaction / Comment(s): pt states PONV only with general anesthesia. Pt. states she had [place] on 05-24-18 while getting blood transfusion; pt. states she also had just started a new chemo medication which has since been discontinued Past Psychological History: Anxiety Additional Psychological History / Comment(s): pt is lives at home uses walker. 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 Smoking Status: Never smoker Past Alcohol Use History: None Reported Additional Past Alcohol Use History / Comment(s): Patient states she's never been a smoker, no medical marijuana or marijuana use, no alcohol use. patient is currently living at [facility] for rehab . Past Drug Use History: None Reported - Past Family History Father Family Medical History: Cancer Additional Family Medical History / Comment(s): KIDNEY CANCER Mother Family Medical History: Myocardial Infarction ([place]) Medications and Allergies Home Medications Medication Instructions Recorded Confirmed Type Acetaminophen Tab [Tylenol] 1,000 mg PO Q6H PRN 01/04/14 10/25/17 History Levothyroxine Sodium [Levoxyl] 25 mcg PO DAILY@0600 01/04/1403/18 History Lactobacillus Acidophilus 2 tab PO BID@0900,209911/14/15 10/25/17 History [Acidophilus] Aspirin 81 mg PO HS@209909/05/16 10/25/17 History Mirtazapine [Remeron] 7.5 mg PO HS@209909/05/16 10/25/17 History Ascorbic Acid [Vitamin C] 500 mg PO DAILY@89906/26/17 10/25/17 History Isosorbide Mononitrate [Isosorbide 15 mg PO DAILY@89906/26/17 10/25/17 History Mononitrate ER] Ipratropium-Albuterol Nebulize 3 ml INHALATION RT-Q4H PRN 07/10/17 10/25/17 Rx [Duoneb 0.5 mg-3 mg/3 ml Soln] ampul.neb Metoprolol Tartrate [Lopressor] 50 mg PO BID tab 07/10/17 10/25/17 Rx Acyclovir [Zovirax] 200 mg PO BID@0900,209907/21/17 10/25/17 History Ferrous Sulfate [Iron (65 MG 325 mg PO DAILY@89909/10/17 10/25/17 History Elemental)] Lansoprazole [Prevacid] 30 mg PO DAILY@59909/10/17 10/25/17 History Simvastatin 40 mg PO HS@209909/10/17 10/25/17 History amLODIPine [Norvasc] 5 mg PO DAILY #1 tab 09/25/17 10/25/17 Rx ALPRAZolam [Xanax] 0.25 mg PO Q8H PRN 10/25/17 10/25/17 History Ammonium Lactate Cream [Lac-Hydrin 1 applic TOPICAL BID 10/25/17 10/25/17 History 12% Cream] Dimethicone/Zinc Oxide [Inzo Zinc 1 applic TOPICAL BID 10/25/17 10/25/17 History Oxide Barrier Cream] Ensure Clear 1 can PO TID 10/25/17 10/25/17 History Ondansetron [Zofran] 4 mg PO Q8H PRN 10/25/17 10/25/17 History Polyethylene Glycol 3350 [Miralax] 17 gm PO HS@209910/25/17 10/25/17 History Allergies Allergy/AdvReac Type Severity Reaction Status Date / Time codeine Allergy Rapid Verified 10/25/17 18:08 Heart Rate Penicillins Allergy Rash/Hives Verified 10/25/17 18:08 Sulfa (Sulfonamide Allergy Dyspnea Verified 10/25/17 18:08 Antibiotics) Physical Exam Vitals: Vital Signs Temp Pulse Pulse Resp BP BP Pulse Ox 10/26/17 07:42 97.5 F L 73 20 59/36 89 L 10/26/17 05:49 81 60/40 93 L 10/25/17 23:44 86 61/36 95 10/25/17 23:34 87 60/40 93 L 10/25/17 22:18 91 71/30 95 10/25/17 21:44 94 68/42 95 10/25/17 21:26 95 28 H 63/41 96 10/25/17 20:58 94 31 H 64/40 97 10/25/17 20:50 63/41 10/25/17 20:47 77/43 10/25/17 20:45 67/43 10/25/17 20:40 98.4 F 95 20 61/36 95 10/25/17 18:30 103 H 10/25/17 18:15 98 10/25/17 17:47 98.4 F 103 H 32 H 93/56 98 10/25/17 17:17 100.3 F H 10/25/17 17:15 105 H 20 124/58 97 10/25/17 16:33 118 H 18 121/65 95 10/25/17 15:51 102 F H 118 H 22 133/58 95 10/25/17 15:14 99.1 F 118 H 18 133/61 97 Intake and Output 10/25/17 10/26/17 10/26/17 22:59 06:59 14:59 Intake Total 800 800 Balance 800 800 Intake: IV 800 800 Sodium Chloride 0.9% 1, 300 800 000 ml @ 100 mls/hr IV . Q10H NATHALY Rx#:[id number] Sodium Chloride 0.9% 500 500 ml @ 999 mls/hr IV .Q31M ONE Rx#:[id number] Oral 0 Other: Voiding Method Diaper Diaper Incontinent Incontinent # Voids 1 # Bowel Movements 1 Weight 58.5 kg - Constitutional General appearance: average body habitus - EENT Eyes: EOMI - Neck Neck: no lymphadenopathy - Respiratory Respiratory: bilateral: diminished - Cardiovascular Rhythm: regular Heart sounds: normal: S1, S2 Abnormal Heart Sounds: no S3 Gallop - Gastrointestinal General gastrointestinal: soft, no tenderness - Integumentary Multiple bruises on lower extremities are noted. - Musculoskeletal Musculoskeletal: generalized weakness - Psychiatric Psychiatric: no A&O x's 3 Results CBC & Chem 7: 10/25/17 15:50 10/25/17 15:50 Labs: Abnormal Lab Results - Last 24 Hours (Table) 10/25/17 10/25/17 10/25/17 Range/Units 15:50 15:50 15:50 WBC 2.3 L (3.8-10.6) k/uL RBC 3.15 L (3.80-5.40) m/uL Hgb 9.5 L (11.4-16.0) gm/dL Hct 29.0 L (34.0-46.0) % RDW 16.5 H (11.5-15.5) % Plt Count 14 L* (150-450) k/uL Neutrophils # (Manual) 0.32 L (1.3-7.7) k/uL Blast Cells # (Man) 0.83 H (0) k/uL PT 12.4 H (9.0-12.0) sec INR 1.3 H (<1.2) APTT 36.8 H (22.0-30.0) sec Chloride 117 H (98-107) mmol/L Carbon Dioxide 10 L* (22-30) mmol/L BUN 44 H (7-17) mg/dL Creatinine 5.40 H* (0.52-1.04) mg/dL Glucose 107 H (74-99) mg/dL AST 64 H (14-36) U/L Alkaline Phosphatase 324 H (38-126) U/L Albumin 3.0 L (3.5-5.0) g/dL Urine Appearance (Clear) Urine Protein (Negative) Amorphous Sediment (None) /hpf Hyaline Casts (0-2) /lpf Urine Mucus (None) /hpf 10/25/17 Range/Units 16:30 WBC (3.8-10.6) k/uL RBC (3.80-5.40) m/uL Hgb (11.4-16.0) gm/dL Hct (34.0-46.0) % RDW (11.5-15.5) % Plt Count (150-450) k/uL Neutrophils # (Manual) (1.3-7.7) k/uL Blast Cells # (Man) (0) k/uL PT (9.0-12.0) sec INR (<1.2) APTT (22.0-30.0) sec Chloride (98-107) mmol/L Carbon Dioxide (22-30) mmol/L BUN (7-17) mg/dL Creatinine (0.52-1.04) mg/dL Glucose (74-99) mg/dL AST (14-36) U/L Alkaline Phosphatase (38-126) U/L Albumin (3.5-5.0) g/dL Urine Appearance Cloudy H (Clear) Urine Protein 3+ H (Negative) Amorphous Sediment Rare H (None) /hpf Hyaline Casts 7 H (0-2) /lpf Urine Mucus Rare H (None) /hpf Microbiology - Last 24 Hours (Table) 10/25/17 15:50 Blood Culture Gram Stain - Preliminary Blood 10/25/17 15:50 Blood Culture - Final Blood 10/25/17 16:30 Urine Culture - Preliminary Urine,Catheterized Assessment and Plan (1) Mental status alteration Current Visit: Yes Status: Acute Code(s): R41.82 - ALTERED MENTAL STATUS, UNSPECIFIED SNOMED Code(s): 790066951 (2) Pneumonia Current Visit: Yes Status: Acute Code(s): J18.9 - PNEUMONIA, UNSPECIFIED ORGANISM SNOMED Code(s): 323655122 (3) Renal failure Current Visit: Yes Status: Acute Code(s): N19 - UNSPECIFIED KIDNEY FAILURE SNOMED Code(s): 97134847 (4) Multiple myeloma, stage 3 Current Visit: No Status: Acute Code(s): C90.00 - MULTIPLE MYELOMA NOT HAVING ACHIEVED REMISSION SNOMED Code(s): 093724954 Plan: Continue comfort care measures with probable hospice given overall prognostic indicators. We'll continue follow-up from medical perspective. Appreciate consultants input. She orders otherwise.
[2017-10-26] MEDS ORDERED: amLODIPine 5 MG TAB PO SCH (09:00)
--- NOTE | 2017-11-09 09:40 | CDI ---
Last Revision, April 2017 Documentation Clarification Form Date: 11/09/2017 9:38:00 AM From: Karen MadsenJOSE, CCDS Admit Date: 10/25/2017 5:03:00 PM Patient Name: Kavita Rivers Visit Number: [id number] Discharge Date: 10/26/2017 ATTENTION: The Clinical Documentation Specialists (CDI) and [facility] Coding Staff appreciate your assistance in clarifying documentation. Please respond to the clarification below the line at the bottom and electronically sign. The CDI & [facility] Coding staff will review the response and follow-up if needed. Please note: Queries are made part of the Legal Health Record. If you have any questions, please contact the author of this message via ITS. Dr. Sami Cardenas: Renal failure is documented in the ED note & also your history & physical. History/Risk Factors: Multiple Myeloma stage 3, Fibromyalgia, Anemia. Clinical Indicators: VS: T 99.1-102; P 118 LAB: BUN 44, Creatinine 5.40, GFR 7, Glucose 107. Treatment: IV Fluid bolus, IV Tylenol, IV Ibuprofen, IV Rocephin, IV fl 100 1, 000 ml, Albuterol INH, O2 Consults: Nephrology, Infectious Disease, Oncology In order to capture the severity of condition, please clarify the acuity of the patient's renal failure: Acute renal failure, Please specify etiology (if known): o Cortical Necrosis o Medullary Necrosis o Tubular Necrosis Chronic Renal Failure (if evident please include the stage) Other, please specify Unable to determine Please continue to document in your progress notes and discharge summary in order to capture severity of illness and risk of mortality. Include clinical findings that support your diagnosis. MTDD
--- NOTE | 2017-11-09 09:50 | CDI ---
Last Revision, April 2017 Documentation Clarification Form Date: 11/09/2017 9:47:00 AM From: Karen Madsen [facility], CCDS Admit Date: 10/25/2017 5:03:00 PM Patient Name: Kavita Rivers Visit Number: [id number] Discharge Date: 10/26/2017 ATTENTION: The Clinical Documentation Specialists (CDI) and [facility] Coding Staff appreciate your assistance in clarifying documentation. Please respond to the clarification below the line at the bottom and electronically sign. The CDI & [facility] Coding staff will review the response and follow-up if needed. Please note: Queries are made part of the Legal Health Record. If you have any questions, please contact the author of this message via ITS. Dr. Sami Cardenas: The patient was admitting with a diagnosis of known multiple myeloma, anemia and pneumonia. History/Risk factors: The patient was recently discharged after being treated for pneumonia and anemia with blood transfusions. Clinical indicators: Labs: WBC 2.3, RBC 3.15, Hgb 9.5, Hct 29.0, Pl Ct 14 Treatment: IV Tylenol, IV Ibuprofen, IV Rocephin, IV fl 100, Albuterol INH, IV fl bolus x1. Consult: Hem/Onc, ID, Nephrology. In your professional opinion, can you please clarify if these findings signify one of the following conditions? Pancytopenia o Due to chemotherapy o Drug induced (specify drug) Pancytopenia due to other, please specify Anemia, please specify etiology Thrombocytopenia, please specify etiology Other condition, please specify Unable to determine Please continue to document in your progress notes and discharge summary in order to capture severity of illness and risk of mortality. Include clinical findings that support your diagnosis. MTDD
--- NOTE | 2017-11-09 10:00 | CDI ---
Last Revision, April 2017 Documentation Clarification Form Date: 11/09/2017 9:57:00 AM From: Karen McclureMadsenJOSE morrow, CCDS Admit Date: 10/25/2017 5:03:00 PM Patient Name: Kavita Rivers Visit Number: [id number] Discharge Date: ATTENTION: The Clinical Documentation Specialists (CDI) and [facility] Coding Staff appreciate your assistance in clarifying documentation. Please respond to the clarification below the line at the bottom and electronically sign. The CDI & [facility] Coding staff will review the response and follow-up if needed. Please note: Queries are made part of the Legal Health Record. If you have any questions, please contact the author of this message via ITS. Dr. Sami Cardenas: Patient is admitted from a [facility] with elevated temps, diagnosed with pneumonia and was recently discharged with pneumonia & anemia with known history of multiple myeloma, this admission. History/Risk Factors: Recent discharge per above. Multiple myeloma, anemia. Clinical Indicators: WBC: 2.3, RBC 3.15, Hgb 9.5, Hct 29.0, Pl Ct 14, Neut 0.32. BUN 44, Cr 5.40. Lactic acid: (0.9) Blood cultures: Final blood cx: Klebsiella pneumonia. Vitals signs on admission: T 99.1-102^; P 118^, R 18-22; BP 133/61; PO 97 ra Treatment: IV fluid bolus, IV fluid rate 100, IV Rocephin, IV Maxipime ID Consult: not documented, patient . In your professional opinion, please clarify if these findings signify one of the following conditions, whether the condition is POA, and cause, if known: Sepsis ruled in or ruled out Severe Sepsis Septic Shock Other, please specify Unable to determine Present on Admission: Yes or No Identify the (suspected) organism if known. Link any associated diagnosis (due to/with): o Organ failure o Shock Please continue to document in your progress notes and discharge summary in order to capture severity of illness and risk of mortality. Include clinical findings that support your diagnosis. MTDD
== END 2017-10-26 08:20 | disposition expired | DRG 871 ==
LOC: EC 15:07 → 5ONC 17:03
PROVIDERS: ADMIT Family Medicine; ATTEND Family Medicine
DX: A41.59 Other Gram-negative sepsis (principal); J18.9 Pneumonia, unspecified organism; D61.810 Antineoplastic chemotherapy induced pancytopenia; C90.00 Multiple myeloma not having achieved remission; N18.5 Chronic kidney disease, stage 5; N17.9 Acute kidney failure, unspecified; D69.6 Thrombocytopenia, unspecified; F41.9 Anxiety disorder, unspecified; I25.2 Old myocardial infarction; K21.9 Gastro-esophageal reflux disease without esophagitis; M79.7 Fibromyalgia; Z51.5 Encounter for palliative care; Z79.82 Long term (current) use of aspirin; Z79.899 Other long term (current) drug therapy; Z80.51 Family history of malignant neoplasm of kidney; Z82.49 Family history of ischemic heart disease and other diseases of the circulatory system; Z90.710 Acquired absence of both cervix and uterus; T45.1X5A Adverse effect of antineoplastic and immunosuppressive drugs, initial encounter
CPT/HCPCS: 36415; 71046; 80053; 81001; 83605; 85025; 85610; 85730; 87040; 87077; 87086; 87186; 87502; 87503; 93005; 96365; 96368; 96375; 99285